=== PATIENT | female | born 1995 | race Caucasian/White ===

== ENCOUNTER 2018-07-02 08:00 | Outpatient (CLI) | payer OTHER ==
[2018-07-02 19:01] LABS: CALCIUM 9.2 mg/dL (8.5-10.3); CREATININE 0.6 mg/dL (0.4-1.0)
[2018-07-02 19:10] LABS: BASOPHILS % (AUTO) 0.3 %; EOSINOPHILS % (AUTO) 0.4 %; HGB - HEMOGLOBIN 13.7 g/dL (12.0-16.0); LYMPHOCYTES # (AUTO) 1.7 10^3/uL (1.5-3.5); LYMPHOCYTES % (AUTO) 20.6 %; MEAN CORPUSCULAR HEMOGLOBIN 31.8 pg (27.0-31.0); MEAN CORPUSCULAR HGB CONC 33.9 g/dL (32.0-36.0); MEAN CORPUSCULAR VOLUME 93.7 fL (81.0-99.0); MEAN PLATELET VOLUME 6.9 fL (7.9-10.8); MONOCYTES # (AUTO) 0.8 10^3/uL (0.0-1.0); NEUTROPHILS # (AUTO) 5.9 10^3/uL (1.5-6.6); NEUTROPHILS % (AUTO) 69.7 %; PLT - PLATELET COUNT 285 10^3/uL (130-450); RED BLOOD COUNT 4.32 10^6/uL (4.20-5.40); RED CELL DISTRIBUTION WIDTH 13.7 % (12.0-15.0); WHITE BLOOD COUNT 8.5 x10^3/uL (4.8-10.8)
[2018-07-02 19:22] LABS: THYROID STIMULATING HORMONE 1.22 uIU/mL (0.34-5.60)
[2018-07-02 19:29] LABS: PROLACTIN 8.39 ng/mL
== END 2018-07-02 08:01 | disposition home or self-care (01) ==
LOC: LAB.WCP 08:00
PROVIDERS: ATTEND Physician Assistant Medical
DX: N91.2 Amenorrhea, unspecified (principal); F32.9 Major depressive disorder, single episode, unspecified
CPT/HCPCS: 36415; 80048; 82306; 82607; 84146; 84443; 84702; 85025

== ENCOUNTER 2018-07-09 13:00 | Outpatient (CLI) | payer OTHER ==
--- NOTE | 2018-07-09 16:19 | Ultrasound Report ---
Reason: ENCOUNTER FOR TEST, RESULT POSITIVE Procedure Date: 07/09/2018 Accession Number: [id number] / [id number] Procedure: US - OB First Trimester CPT Code: FULL RESULT: EXAM: FIRST TRIMESTER OBSTETRIC ULTRASOUND (Less than 11 weeks) EXAM DATE: 07/09/2018 01:54 PM. CLINICAL HISTORY: Encounter for test, result positive. LMP: Unknown. COMPARISONS: None. TECHNIQUE: Transabdominal and transvaginal ultrasound examination with static image documentation. CLINICAL DATES: Not yet established and the patient is unsure of her last menstrual period. ASSESSMENT: Gestational Sac: 0.8 x 0.3 x 11 mm. Mean gestational sac diameter: 7.3 mm = under 5 weeks. Embryo: CRL (crown-rump length) not seen. Cardiac activity: Not seen. Yolk sac: Not seen. Amniotic fluid: Not accurately assessed at this gestational age. Early placenta: Not visible at this gestational age. Other: No perigestational fluid collection demonstrated. MATERNAL STRUCTURES: Uterus: Anteverted. Unremarkable. Cervix: Closed. Right Ovary/Adnexa: The ovary measures 2.2 x 1.3 x 1.4 cm, volume 2.1 cc. Unremarkable. Left Ovary/Adnexa: The ovary measures 3.4 x 3.0 x 2.4 cm, volume 12.7 cc. Unremarkable. Free Fluid: None. Other: None. IMPRESSION: of unknown location. Intrauterine fluid collection, which could represent a gestational sac, cyst, or focal fluid. If this is a gestational sac, size would correspond to a gestational age of under 5 weeks. Recommend close clinical follow-up and correlation with serial beta-hCG and follow-up ultrasound if indicated. RADIA
== END 2018-07-09 13:01 | disposition home or self-care (01) ==
LOC: DI 13:00
PROVIDERS: ATTEND Registered Nurse
DX: Z32.01 Encounter for pregnancy test, result positive (principal)
CPT/HCPCS: 76801; 76817

== ENCOUNTER 2018-09-27 17:54 | Inpatient (IN) | payer OTHER, BC ==
--- NOTE | 2018-09-27 18:20 | ED Physician Documentation ---
History of Present Illness - Stated complaint Stated Complaint: AB PX - Chief complaint Chief Complaint: Abd Pain - History obtained from History obtained from: Patient - History of Present Illness Timing: Today Pain level max: 8 Pain level now: 7 Improved by: nothing Worsened by: eating - Additonal information Additional information: 23-year-old female with abdominal pain and vomiting since yesterday. No vomiting today. Has continued epigastric and right upper quadrant abdominal pain. No fevers. No diarrhea. No possibility of . Drinks a few glasses of wine every other day. Does not take any medications at home. No allergies to medication. Patient has had prior alcohol withdrawal seizures, last was approximately 1.5 years ago Review of Systems Ten Systems: 10 systems reviewed and negative Constitutional: denies: Fever, Chills Ears: denies: Ear pain Nose: denies: Rhinorrhea / runny nose, Congestion Respiratory: denies: Cough GI: reports: Abdominal Pain, Nausea, Vomiting. 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 : None HEENT: None Psych: None Musculoskeletal: None Derm: None - Present Medications Home Medications: Ambulatory Orders Medication Instructions Recorded Confirmed Acetaminophen [Tylenol] 09/27/18 diphenhydrAMINE [Benadryl] 09/27/18 - Allergies Allergies/Adverse Reactions: Allergies Allergy/AdvReac Type Severity Reaction Status Date / Time No Known Drug Allergies Allergy Verified 09/27/18 18:02 - Social History Does the pt smoke?: Yes Smoking Status: Current every day smoker Does the pt drink ETOH?: Yes Does the pt have substance abuse?: No - Immunizations Immunizations are current?: Yes PD ED PE NORMAL - Vitals Vital signs reviewed: Yes - General General: Alert and oriented X 3, No acute distress - HEENT HEENT: Moist mucous membranes - Neck Neck: Supple, no meningeal sign - Cardiac Cardiac: RRR - Respiratory Respiratory: No respiratory distress, Clear bilaterally - Abdomen Abdomen: Soft, Non distended, Other (TTP RUQ and epigastric. equivocal suarez's sign) - Back Back: No spinal TTP - Derm Derm: Warm and dry - Extremities Extremities: No edema - Neuro Neuro: Alert and oriented X 3 Results - Vitals Vitals: Vital Signs - 24 hr 09/27/18 09/27/18 17:56 19:52 Temperature 36.0 C L Heart Rate 75 99 Respiratory 16 16 Rate Blood Pressure 116/60 144/112 H O2 Saturation 99 100 Oxygen O2 Source Room air - Labs Labs: Laboratory Tests 09/27/18 09/27/18 09/27/18 18:14 18:14 18:15 WBC 14.5 H RBC 5.74 H Hgb 18.5 H Hct 55.4 H MCV 96.4 MCH 32.2 H MCHC 33.4 RDW 19.1 H Plt Count 122 L MPV 9.5 Neut # (Auto) HEAD OF MUSIC Lymph # (Auto) HEAD OF MUSIC Greene # (Auto) HEAD OF MUSIC Eos # (Auto) HEAD OF MUSIC Baso # (Auto) HEAD OF MUSIC Absolute Nucleated RBC HEAD OF MUSIC Total Counted 100 Band Neuts % (Manual) 7 Abnorm Lymph % (Manual) 0 Nucleated RBC % HEAD OF MUSIC Neutrophils # (Manual) 12.3 H Lymphocytes # (Manual) 1.3 L Monocytes # (Manual) 0.9 Eosinophils # (Manual) 0.0 Basophils # (Manual) 0.0 Differential Comment MANUAL DIFFERENTIAL Manual Slide Review Indicated Platelet Estimate DECREASED (<130,000) Platelet Morphology NORMAL VERENICE RBC Morph Micro Appear 1+ STOMATOCYTES PT 12.7 H INR 1.1 APTT Sodium 126 L Potassium 3.3 L Chloride 81 L Carbon Dioxide 24 Anion Gap 21.0 H BUN 32 H Creatinine 3.8 H Estimated GFR (MDRD) 14 L Glucose 206 H Calcium 7.8 L Total Bilirubin 1.4 H AST 185 H ALT 105 H Alkaline Phosphatase 93 Total Protein 7.7 Albumin 4.1 Globulin 3.6 Albumin/Globulin Ratio 1.1 Lipase 792 H Ethyl Alcohol 09/27/18 09/27/18 18:15 18:15 WBC RBC Hgb Hct MCV MCH MCHC RDW Plt Count MPV Neut # (Auto) Lymph # (Auto) Greene # (Auto) Eos # (Auto) Baso # (Auto) Absolute Nucleated RBC Total Counted Band Neuts % (Manual) Abnorm Lymph % (Manual) Nucleated RBC % Neutrophils # (Manual) Lymphocytes # (Manual) Monocytes # (Manual) Eosinophils # (Manual) Basophils # (Manual) Differential Comment Manual Slide Review Platelet Estimate Platelet Morphology RBC Morph Micro Appear PT INR APTT 26.6 Sodium Potassium Chloride Carbon Dioxide Anion Gap BUN Creatinine Estimated GFR (MDRD) Glucose Calcium Total Bilirubin AST ALT Alkaline Phosphatase Total Protein Albumin Globulin Albumin/Globulin Ratio Lipase Ethyl Alcohol < 5.0 - Rads (name of study) RUQ US Radiology: Prelim report reviewed, EMP read contemporaneously, See rad report (No acute abnormality) PD MEDICAL DECISION MAKING - ED course Complexity details: reviewed results, re-evaluated patient, considered differential, d/w patient, d/w family ED course: 23-year-old female with acute pancreatitis, acute renal failure and thrombocytopenia. Likely all secondary to alcohol use. Given IV fluids. Given pain medication. Will admit for further care. Ultrasound does not show any acute abnormalities. Discussed the case with the hospitalist who accepts. This document was made in part using voice recognition software. While efforts are made to proofread this document, sound alike and grammatical errors may occur. Departure - Departure Disposition: 66 CAH DC/Xfer Clinical Impression: Thrombocytopenia, Alcoholism Pancreatitis Qualifiers: Chronicity: acute Pancreatitis type: unspecified pancreatitis type Acute pancreatitis complication: unspecified Qualified Code(s): K85.90 - Acute pancreatitis without necrosis or infection, unspecified Acute renal failure Qualifiers: Acute renal failure type: unspecified Qualified Code(s): N17.9 - Acute kidney failure, unspecified Condition: Stable
[2018-09-27 18:30] LABS: HGB - HEMOGLOBIN 18.5 g/dL (12.0-16.0); MEAN CORPUSCULAR HEMOGLOBIN 32.2 pg (27.0-31.0); PLT - PLATELET COUNT 122 10^3/uL (130-450); RED BLOOD COUNT 5.74 10^6/uL (4.20-5.40); WHITE BLOOD COUNT 14.5 x10^3/uL (4.8-10.8)
[2018-09-27 18:33] LABS: BASOPHILS % (AUTO) 0.2 %; EOSINOPHILS % (AUTO) 0.1 %; LYMPHOCYTES % (AUTO) 11.9 %; MEAN CORPUSCULAR HGB CONC 33.4 g/dL (32.0-36.0); MEAN CORPUSCULAR VOLUME 96.4 fL (81.0-99.0); MEAN PLATELET VOLUME 9.5 fL (7.9-10.8); MONOCYTES % (AUTO) 5.8 %; RED CELL DISTRIBUTION WIDTH 19.1 % (12.0-15.0)
[2018-09-27 18:35] LABS: ABNORMAL LYMPHS % (MANUAL) 0 %
[2018-09-27 18:53] LABS: ALBUMIN 4.1 g/dL (3.2-5.5); ALBUMIN/GLOBULIN RATIO 1.1 (1.0-2.2); BILIRUBIN,TOTAL 1.4 mg/dL (0.2-1.0); CALCIUM 7.8 mg/dL (8.5-10.3); CREATININE 3.8 mg/dL (0.4-1.0); TOTAL PROTEIN 7.7 g/dL (6.7-8.2)
[2018-09-27] MEDS ORDERED: SODIUM CHLORIDE 0.9% 1,000 ML IV ONE ×3 (18:58)
[2018-09-27 19:07] LABS: BAND NEUTROPHILS % (MANUAL) 7 %; LYMPHOCYTES # (MANUAL) 1.3 10^3/uL (1.5-3.5); LYMPHOCYTES % (MANUAL) 9 %; MONOCYTES # (MANUAL) 0.9 10^3/uL (0.0-1.0); NEUTROPHILS # (MANUAL) 12.3 10^3/uL (1.5-6.6); NEUTROPHILS % (MANUAL) 78 %
[2018-09-27 19:08] LABS: INR 1.1 (0.8-1.2); PT - PROTHROMBIN TIME 12.7 secs (9.9-12.6)
[2018-09-27 19:12] LABS: DIFFERENTIAL COMMENT MANUAL DIFFERENTIAL; PLATELET ESTIMATE, MANUAL DECREASED (<130,000) (NORMAL)
[2018-09-27 19:13] LABS: PLATELET MORPHOLOGY NORMAL APP (NORMAL)
[2018-09-27] MEDS ORDERED: HYDROmorphone 1 MG/ML CARPUJECT IVP STA (19:54)
--- NOTE | 2018-09-27 20:35 | Ultrasound Report ---
Reason: RUQ pain Procedure Date: 09/27/2018 Accession Number: [id number] / [id number] Procedure: US - Abdomen Limited CPT Code: FULL RESULT: EXAM: ABDOMEN ULTRASOUND LIMITED, RUQ EXAM DATE: 09/27/2018 08:22 PM. CLINICAL HISTORY: RUQ pain. COMPARISON: None. TECHNIQUE: Real-time scanning was performed with static images obtained. FINDINGS: Liver: Submitted images of liver demonstrate no focal lesions. Main portal vein flow: Hepatopetal. Gallbladder: No stones, wall thickening, or sonographic Lees's sign. Biliary System: CBD measures 4 mm. No intrahepatic or extrahepatic ductal dilatation. Other: The pancreas is not well seen. Right kidney demonstrates no hydronephrosis. IMPRESSION: Negative right upper quadrant ultrasound. RADIA
--- NOTE | 2018-09-27 21:23 | HISTORY & PHYSICAL EXAMINATION ---
Chief Complaint - Chief Complaint Chief Complaint: Abdominal pain History of Present Illness - Admitted From Admitted From:: Emergency department - History Obtained From Records Reviewed: Emergency department records, and previous hospital visits History obtained from: Patient and Dr. Calderon, ED physician Exam Limitations: None - History of Present Illness HPI Comment/Other: Patient is a healthy 23-year-old female who complains of abdominal pain which developed yesterday and progressively has gotten worse. She describes the pain as located in the epigastric region or central abdomen, which is relatively constant, not crampy and currently described as sharp. Pain is worsened with any p.o. intake which has now dwindled to clear liquids only, in particular water today. Otherwise she has not eaten much in the last couple of days Has not had a bowel movement in 2 days. She denies any fever or chills, she had one episode of emesis. She has not had prior episodes of abdominal pain like this before. Upon social history she does admit to drinking several glasses of wine per day and has done so for several months or years. She opens up a little bit and admits that this is being utilized as a self-medicating for depression. She has been officially diagnosed with depression in the past and was prescribed what she believes to be Prozac sometime ago and thinks that she did not tolerate it, and she does currently have sertraline at home but is not really taking it. In the emergency room evaluation led to labs and abdominal CT scan. Labs are pertinent for elevated lipase over 700, AST and ALT over 100, sodium level of 126, and other abnormality findings as below consistent with acute pancreatitis. There is no visible gallstone pancreatitis, no CBD dilation. Patient will be placed in inpatient status for treatment of acute alcoholic pancreatitis and will have a social work consult tomorrow to help assist her with resources on alcohol cessation and encouragement on better treatment of her depression. 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 She lives with her parents. She is currently in a relationship but is not and does not have children. - Substance History Abuse: Recurrent use of substance despite neg consequences: Alcohol Abuse Issues: Mood Disorder - POLST Patient has POLST: No POLST Status: Full Code Meds/Allgy - Home Medications Home Medications: Ambulatory Orders Medication Instructions Recorded Confirmed Acetaminophen [Tylenol] 09/27/18 diphenhydrAMINE [Benadryl] 09/27/18 - Allergies Allergies/Adverse Reactions: Allergies Allergy/AdvReac Type Severity Reaction Status Date / Time No Known Drug Allergies Allergy Verified 09/27/18 18:02 Review of Systems - Constitutional Constitutional: reports: Fatigue, Malaise, Poor appetite. denies: Fever, Chills, Night sweats - Respiratory Respiratory: reports: Other (SOB with abdominal cramps and deep breaths) - Gastrointestinal Gastrointestinal: reports: Abdominal pain, Abdominal distention, Nausea, Vomiting. denies: Constipation, Diarrhea, Change in bowel habits, Rectal bleeding, Black stools, Bloody stools, Bile emesis, Tank blood emesis, Coffee grounds emesis - Psychiatric Psychiatric: reports: Depression. denies: Anxiety, Suicidal - All Other Systems All Other Systems: reports: Reviewed and negative Prior Level of Functionality: Independent Exam - Vital Signs Vital Signs: Vital Signs x48h Temp Pulse Resp BP Pulse Ox 09/27/18 20:56 80 16 131/108 H 99 09/27/18 19:52 99 16 144/112 H 100 09/27/18 17:56 36.0 C L 75 16 116/60 99 - Physical Exam General Appearance: positive: No acute distress Eyes Bilateral: positive: Normal inspection, Conjunctivae nml, No scleral icterus ENT: positive: ENT inspection nml Neck: positive: Nml inspection Respiratory: positive: Chest non-tender, No respiratory distress, Breath sounds nml Cardiovascular: positive: Regular rate & rhythm, No murmur, No gallop Peripheral Pulses: positive: 2+ Abdomen: positive: No organomegaly, Nml bowel sounds, No distention, Tenderness, Other (Minimal tenderness of the epigastric region and left upper quadrant). negative: Guarding, Rebound Skin: positive: Color nml Extremities: positive: Non-tender, No pedal edema Neurologic/Psychiatric: positive: Oriented x3, CN's nml (2-12), Motor nml, Sensation nml, Depressed mood/affect Conclusion/Plan - Problem List (1) Acute alcoholic pancreatitis Conclusion/Plan: Based on labs, symptoms, and imaging, most likely diagnosis explaining her pain and laboratory findings is acute alcoholic pancreatitis given the alcohol consumption that she admits to which is half a bottle of wine every day or so. Patient will be admitted with n.p.o. other than sips and chips, with IV fluid hydration aggressively, serial abdominal exam and follow-up labs in the morning and will slowly advance diet as symptoms and labs allow. Qualifiers: Acute pancreatitis complication: no infection or necrosis Qualified Code(s): K85.20 - Alcohol induced acute pancreatitis without necrosis or infection (2) Acute kidney injury Conclusion/Plan: Creatinine level of 3.8 in a patient with no known history of kidney disease who is otherwise young and healthy, with most likely secondary to intravascular depletion secondary to alcoholic pancreatitis. With aggressive IV fluid hydration would expect this to improve and will continue to monitor creatinine levels over the next day or 2 and this is unlikely to resolve within 24 hours.Pending rate of improvement, may need to consider dedicated renal imaging unless lab values Improved. (3) Hypokalemia Conclusion/Plan: Mild hypokalemia of 3.3, possibly due to tissue destruction from the acute pancreatitis versus GI loss. Will replace potassium and repeat labs in the morning. (4) Hyponatremia Conclusion/Plan: Most likely hypovolemic hyponatremia, will replace with normal saline and follow-up labs in the morning. (5) Elevated liver enzymes Conclusion/Plan: LFTs are moderately elevated with an AST greater than ALT suggestive of alcoholic etiology. In the setting of platelet level of 122, and hemoconcentration, this is also likely related to alcohol as well. Patient will need to monitor LFTs in the outpatient to see if this is limited to an acute alcoholic hepatitis.Though I think we have a source for this I will add a hepatitis panel to her morning labs. (6) Leukocytosis Conclusion/Plan: Likely reactive secondary to alcoholic pancreatitis, will follow-up repeat labs in the morning. (7) Elevated hemoglobin Conclusion/Plan: Most likely due to hemoconcentration from dehydration due to intravascular volume loss. However given the elevated LFTs, the patient's race and ethnicity, hemochromatosis may be considered and we will check for this on labs in the morning. (8) Alcohol abuse Conclusion/Plan: Counseled on the underlying problem leading to the alcoholism which appears to be depression. We will get a social work consult tomorrow and provide the pat ient with options for counseling and rehabilitation. - Lab Results Lab results reviewed: Yes Fish Bones: 09/27/18 18:14 09/27/18 18:14 - Diagnostic Imaging Results Diagnostic Imaging Results: positive: Final report reviewed - EKG Results EKG Interpreted Independently: No
[2018-09-27] MEDS ORDERED: PROCHLORPERAZINE 10 MG/2 ML VIAL IVP PRN (21:46)
[2018-09-27] MEDS ORDERED: POTASSIUM CHLOR 20 MEQ/100 ML 20 MEQ/100 ML BAG IV SCH (22:00)
[2018-09-27 22:11] LABS: BILIRUBIN,URINE NEGATIVE (NEGATIVE); GLUCOSE, URINE (UA) 100 mg/dL (NEGATIVE); KETONES,URINE (UA) NEGATIVE (NEGATIVE); LEUKOCYTE ESTERASE, URINE NEGATIVE (NEGATIVE); NITRITE,URINE NEGATIVE (NEGATIVE); OCCULT BLOOD,URINE LARGE (NEGATIVE); PH,URINE 5.5 PH (5.0-7.5); PROTEIN,URINE 100 mg/dL (NEGATIVE); UROBILINOGEN,URINE 0.2 (NORMAL) E.U./dL (NORMAL)
[2018-09-27 22:15] LABS: CLARITY,URINE HAZY (CLEAR); HCG UR QUAL NEGATIVE
[2018-09-27 22:25] LABS: BACTERIA,URINE Few /HPF (None Seen); SQUAMOUS EPITHELIAL CELL,UR MOD Squamous (<= Few)
[2018-09-27] MEDS: SODIUM CHLORIDE 0.9% 1,000 ML IV SCH (22:25)
[2018-09-27] MEDS ORDERED: POTASSIUM CHLOR 10 MEQ/100 ML 10 MEQ/100 ML BAG IV ONE ×2 (22:25→23:25)
[2018-09-27 22:26] LABS: AMORPHOUS SEDIMENT,UR Moderate /LPF
[2018-09-27] MEDS: HYDROmorphone 0.5 MG/0.5 ML SYRINGE IVP PRN (22:57)
[2018-09-28] MEDS: ONDANSETRON 4 MG/2 ML VIAL IVP PRN (00:20)
[2018-09-28] MEDS: SODIUM CHLORIDE FLUSH 0.9% 10 ML SYRINGE IVP SCH ×3 (00:21→16:10)
[2018-09-28] MEDS: HYDROmorphone 0.5 MG/0.5 ML SYRINGE IVP PRN ×2 (02:25→06:16)
[2018-09-28] MEDS: SODIUM CHLORIDE 0.9% 1,000 ML IV SCH ×5 (03:07→23:53)
[2018-09-28 06:42] LABS: HGB - HEMOGLOBIN 13.9 g/dL (12.0-16.0); MEAN CORPUSCULAR HEMOGLOBIN 33.1 pg (27.0-31.0); MEAN CORPUSCULAR HGB CONC 33.8 g/dL (32.0-36.0); MEAN CORPUSCULAR VOLUME 97.9 fL (81.0-99.0); MEAN PLATELET VOLUME 8.9 fL (7.9-10.8); RED BLOOD COUNT 4.19 10^6/uL (4.20-5.40); WHITE BLOOD COUNT 8.6 x10^3/uL (4.8-10.8)
[2018-09-28 07:00] LABS: ALBUMIN 3.1 g/dL (3.2-5.5); ALBUMIN/GLOBULIN RATIO 1.2 (1.0-2.2); BILIRUBIN,TOTAL 1.2 mg/dL (0.2-1.0); CREATININE 2.2 mg/dL (0.4-1.0); TOTAL PROTEIN 5.7 g/dL (6.7-8.2)
[2018-09-28 07:01] LABS: CALCIUM 6.4 mg/dL (8.5-10.3)
[2018-09-28] MEDS: LORazepam 2 MG/ML VIAL IVP PRN ×3 (07:50→22:47)
[2018-09-28] MEDS ORDERED: CALCIUM GLUCONATE 2,000 MG in SODIUM CHLORIDE 0.9% 100ML 100 ML IV ONE (08:23)
[2018-09-28 08:51] LABS: CHOL/HDL RATIO 5.4 (<4.4); CHOLESTEROL 97 mg/dL; HDL CHOLESTEROL 18 mg/dL; LDL CHOLESTEROL,CALCULATED 34 mg/dL; LDL/HDL RATIO 1.9 (<4.4); VLDL CHOLESTEROL 45 mg/dL
[2018-09-28] MEDS: HYDROmorphone 1 MG/ML CARPUJECT IVP PRN ×4 (09:24→18:26)
[2018-09-28] MEDS: POLYETHYLENE GLYCOL 3350 17 GM PACKET PO SCH (11:09)
[2018-09-28] MEDS: SERTRALINE 25 MG TABLET PO SCH (12:22)
--- NOTE | 2018-09-28 13:38 | PROVIDER PROGRESS NOTE ---
Assessment/Plan - Problem List (1) Acute alcoholic pancreatitis Qualifiers: Acute pancreatitis complication: no infection or necrosis Qualified Code(s): K85.20 - Alcohol induced acute pancreatitis without necrosis or infection Assessment/Plan: Patient admits to heavy drinking to cope with depression. She states that she drinks a box of wine every 2-3 days. She has had alcohol withdrawal seizures in the past so it is likely that she drinks more than what she claims. The patient's lipid profile shows normal triglycerides, abdominal ultrasound does not show any evidence of gallstones. The patient has had no recent viral syndrome. The patient is not on any medications that could cause pancreatitis. This is very likely to be alcoholic pancreatitis. Lipase improved from 792-339 overnight Plan: Continue IV fluids Continue n.p.o. Pain control Electrolyte replacement Monitor closely if patient has worsening symptoms consider CT of the abdomen and pelvis. (2) Acute kidney injury Conclusion/Plan: Likely secondary to pancreatitis and significant fluid loss. The patient's creatinine on presentation was 3.8 with an elevated BUN. This appears to be a prerenal azotemia. After receiving IV fluids overnight patient's creatinine is improved from 3.8- 2.2 Plan: Continue IV fluids Avoid nephrotoxic agents Monitor creatinine (3) Hypokalemia Conclusion/Plan: Resolved with potassium replacement Monitor potassium (4) Hyponatremia Conclusion/Plan: Likely hypovolemic hyponatremia which is improving with IV fluids as sodium is up to 129 from 126 Continue IV fluids and monitor sodium. (5) Elevated liver enzymes Conclusion/Plan: Likely secondary to alcoholic hepatitis. AST and ALT both improving. Bilirubin also improving. Hepatitis panel pending (6) Leukocytosis Conclusion/Plan: Likely reactive secondary to alcoholic pancreatitis. Resolved with treatment (7) Hyperglycemia Conclusion/Plan: Patient's blood glucose is elevated on presentation at 206. This is likely secondary to acute pancreatitis. The patient's blood glucose will be monitored and will check a hemoglobin A1c. Today blood glucose is down to 137 (8) Alcohol abuse Conclusion/Plan: Patient counseled Social work consulted [facility] protocol Ativan as needed (9) Hypocalcemia Conclusion/Plan: Likely secondary to poor nutrition and alcohol abuse. Replace calcium Monitor calcium - Current Meds Current Meds: Current Medications Generic Name Dose Route Start Last Admin Trade Name Freq PRN Reason Stop Dose Admin Hydromorphone HCl 1 mg 09/28/18 07:28 09/28/18 12:27 Dilaudid Inj Carp IVP 1 mg Q2H PRN Administration Pain 8 to 10 Sodium Chloride 1,000 mls @ 200 mls/hr 09/27/18 22:00 09/28/18 13:13 Normal Saline 0.9% IV 200 mls/hr .Q5H EDISON Administration Lorazepam 1 mg 09/27/18 21:54 09/28/18 07:50 Ativan Inj (Vial) IVP 1 mg Q2H PRN Administration Alcohol Withdrawal Ondansetron HCl 4 mg 09/27/18 21:46 09/28/18 00:20 Zofran Inj IVP 4 mg Q6HR PRN Administration Nausea / Vomiting Polyethylene Glycol 17 gm 09/28/18 09:00 09/28/18 11:09 Miralax PO Not Given DAILY EDISON Sertraline HCl 25 mg 09/28/18 12:00 09/28/18 12:22 Zoloft PO 25 mg DAILY EDISON Administration Sodium Chloride 10 ml 09/28/18 01:00 09/28/18 09:17 Normal Saline Flush 0.9% IVP Not Given 0100,0900,1700 EDISON - Lab Result Lab results reviewed: Yes Fish Bone Diagrams: 09/28/18 05:50 09/28/18 05:50 - Diagnostic Imaging Results Diagnostic Imaging Results: Final report reviewed - Additional Planning Condition/Complexity: Guarded My Orders: My Active Orders 09/28/18 11:50 CIWA - AR Score Card [RC] Routine Routine Social Work Consult [CONS] Routine 09/28/18 12:00 Sertraline [Zoloft] 25 mg PO DAILY Plan Discussed with:: Patient, Family Time Spent: 31-60 minutes Subjective - Subjective Patient Reports: Abdominal Pain (Better with pain medications), Nausea (Improved), Other (She is drowsy this morning secondary to ativan) Nursing Reports: No Complaints Objective Vital Signs: Vital Signs - 24 hr 09/27/18 09/27/18 09/27/18 17:56 19:52 20:56 Temperature 36.0 C L Heart Rate 75 99 80 Heart Rate [ Brachial] Respiratory 16 16 16 Rate Blood Pressure 116/60 144/112 H 131/108 H Blood Pressure [Right Brachial artery] O2 Saturation 99 100 99 09/27/18 09/27/18 09/28/18 21:51 22:28 07:24 Temperature 37.5 C 36.3 C L Heart Rate 96 Heart Rate [ 106 H 114 H Brachial] Respiratory 16 20 16 Rate Blood Pressure 107/75 Blood Pressure 124/106 H 130/86 H [Right Brachial artery] O2 Saturation 100 97 94 Oxygen O2 Source Room air I&O (Last 24 Hrs): Intake and Output Totals x24h 09/26/18 09/27/18 09/28/18 23:59 23:59 23:59 Intake Total 2049 3089 Output Total Balance 2049 308 General: Moderate distress (Abdominal discomfort), Other (Drowsy, in pain) HEENT: Atraumatic, PERRLA, EOMI, Other (Dry mucus membranes) Neck: Supple, No JVD, No thyromegaly, +2 carotid pulse wo bruit, No LAD Lymphatic: no adenopathy Neuro: Alert, Non Focal, CN 2-12 Grossly Intact, Oriented Times 3 Cardiovascular: No murmurs, Other (Tachycardic) Respiratory: Chest non-tender, No respiratory distress, Breath sounds nml Abdomen: Other (Epigastric tenderness) Extremities: No clubbing, No cyanosis, No edema, Normal pulses, No tenderness/s welling Skin: No rashes, No breakdown - Results Results: Laboratory Results WBC 8.6 x10^3/uL (4.8-10.8) 09/28/18 05:50 RBC 4.19 10^6/uL (4.20-5.40) L 09/28/18 05:50 Hgb 13.9 g/dL (12.0-16.0) 09/28/18 05:50 Hct 41.0 % (37.0-47.0) 09/28/18 05:50 MCV 97.9 fL (81.0-99.0) 09/28/18 05:50 MCH 33.1 pg (27.0-31.0) H 09/28/18 05:50 MCHC 33.8 g/dL (32.0-36.0) 09/28/18 05:50 RDW 19.0 % (12.0-15.0) H 09/28/18 05:50 Plt Count 82 10^3/uL (130-450) L 09/28/18 05:50 MPV 8.9 fL (7.9-10.8) 09/28/18 05:50 Neut # (Auto) LUMBER DRIVER 09/27/18 18:14 Lymph # (Auto) LUMBER DRIVER 09/27/18 18:14 [place] # (Auto) LUMBER DRIVER 09/27/18 18:14 Eos # (Auto) LUMBER DRIVER 09/27/18 18:14 Baso # (Auto) LUMBER DRIVER 09/27/18 18:14 Absolute Nucleated RBC LUMBER DRIVER 09/27/18 18:14 Total Counted 100 09/27/18 18:14 Band Neuts % (Manual) 7 % (0-10) 09/27/18 18:14 Abnorm Lymph % (Manual) 0 % 09/27/18 18:14 Nucleated RBC % LUMBER DRIVER 09/27/18 18:14 Neutrophils # (Manual) 12.3 10^3/uL (1.5-6.6) H 09/27/18 18:14 Lymphocytes # (Manual) 1.3 10^3/uL (1.5-3.5) L 09/27/18 18:14 Monocytes # (Manual) 0.9 10^3/uL (0.0-1.0) 09/27/18 18:14 Eosinophils # (Manual) 0.0 10^3/uL (0-0.7) 09/27/18 18:14 Basophils # (Manual) 0.0 10^3/uL (0-0.1) 09/27/18 18:14 Differential Comment MANUAL DIFFERENTIAL 09/27/18 18:14 Manual Slide Review Indicated 09/27/18 18:14 Platelet Estimate DECREASED (<130,000) (NORMAL) 09/27/18 18:14 Platelet Morphology NORMAL VERENICE (NORMAL) 09/27/18 18:14 RBC Morph Micro Appear 1+ ANISOCYTOSIS (NORMAL) 1+ STOMATOCYTES (NORMAL) 09/27/18 18:14 RBC Morph Micro Appear 1+ ANISOCYTOSIS (NORMAL) 1+ STOMATOCYTES (NORMAL) 09/27/18 18:14 PT 12.7 secs (9.9-12.6) H 09/27/18 18:15 INR 1.1 (0.8-1.2) 09/27/18 18:15 APTT 26.6 secs (24.9-33.3) 09/27/18 18:15 Sodium 129 mmol/L (135-145) L 09/28/18 05:50 Potassium 3.7 mmol/L (3.5-5.0) 09/28/18 05:50 Chloride 97 mmol/L (101-111) L 09/28/18 05:50 Carbon Dioxide 20 mmol/L (21-32) L 09/28/18 05:50 Anion Gap 12.0 (6-13) 09/28/18 05:50 BUN 28 mg/dL (6-20) H 09/28/18 05:50 Creatinine 2.2 mg/dL (0.4-1.0) H 09/28/18 05:50 Estimated GFR (MDRD) 27 (>89) L 09/28/18 05:50 Glucose 137 mg/dL (70-100) H 09/28/18 05:50 Calcium 6.4 mg/dL (8.5-10.3) L* 09/28/18 05:50 Total Bilirubin 1.2 mg/dL (0.2-1.0) H 09/28/18 05:50 AST 112 IU/L (10-42) H 09/28/18 05:50 ALT 67 IU/L (10-60) H 09/28/18 05:50 Alkaline Phosphatase 66 IU/L (42-121) 09/28/18 05:50 Total Protein 5.7 g/dL (6.7-8.2) L 09/28/18 05:50 Albumin 3.1 g/dL (3.2-5.5) L 09/28/18 05:50 Globulin 2.6 g/dL (2.1-4.2) 09/28/18 05:50 Albumin/Globulin Ratio 1.2 (1.0-2.2) 09/28/18 05:50 Triglycerides 223 mg/dL (-149) H 09/28/18 05:50 Cholesterol 97 mg/dL (-199) 09/28/18 05:50 LDL Cholesterol, Calc 34 mg/dL (-129) 09/28/18 05:50 VLDL Cholesterol 45 mg/dL 09/28/18 05:50 HDL Cholesterol 18 mg/dL (60-) L 09/28/18 05:50 LDL/HDL Ratio 1.9 (<4.4) 09/28/18 05:50 Cholesterol/HDL Ratio 5.4 (<4.4) 09/28/18 05:50 Lipase 339 U/L (22-51) H 09/28/18 05:50 Urine Color YELLOW 09/27/18 22:03 Urine Clarity HAZY (CLEAR) 09/27/18 22:03 Urine pH 5.5 PH (5.0-7.5) 09/27/18 22:03 Ur Specific [place] 1.025 (1.002-1.030) 09/27/18 22:03 Urine Protein 100 mg/dL (NEGATIVE) H 09/27/18 22:03 Urine Glucose (UA) 100 mg/dL (NEGATIVE) H 09/27/18 22:03 Urine Ketones NEGATIVE mg/dL (NEGATIVE) 09/27/18 22:03 Urine Occult Blood LARGE (NEGATIVE) H 09/27/18 22:03 Urine Nitrite NEGATIVE (NEGATIVE) 09/27/18 22:03 Urine Bilirubin NEGATIVE (NEGATIVE) 09/27/18 22:03 Urine Urobilinogen 0.2 (NORMAL) E.U./dL (NORMAL) 09/27/18 22:03 Ur Leukocyte Esterase NEGATIVE (NEGATIVE) 09/27/18 22:03 Urine RBC 6-10 /HPF (0-5) H 09/27/18 22:03 Urine WBC 11-25 /HPF (0-5) H 09/27/18 22:03 Ur Squamous Epith Cells MOD Squamous (<= Few) H 09/27/18 22:03 Amorphous Sediment Moderate /LPF 09/27/18 22:03 Urine Bacteria Few /HPF (None Seen) 09/27/18 22:03 Urine Casts 11-25 Granular Casts /LPF 09/27/18 22:03 Ur Microscopic Review INDICATED 09/27/18 22:03 Urine Culture Comments NOT INDICATED 09/27/18 22:03 Urine HCG, Qual NEGATIVE 09/27/18 22:03 Ethyl Alcohol < 5.0 mg/dL 09/27/18 18:15 ABX Reporting Has patient been on IV antibiotics over the past 48 hours?: No Current Medications - Current Medications Current Medications: Active Medications Generic Name Dose Route Start Last Admin Trade Name Freq PRN Reason Stop Dose Admin Hydromorphone HCl 1 mg 09/28/18 07:28 09/28/18 12:27 Dilaudid Inj Carp IVP 1 mg Q2H PRN Administration Pain 8 to 10 Sodium Chloride 1,000 mls @ 200 mls/hr 09/27/18 22:00 09/28/18 13:13 Normal Saline 0.9% IV 200 mls/hr .Q5H EDISON Administration Lorazepam 1 mg 09/27/18 21:54 09/28/18 07:50 Ativan Inj (Vial) IVP 1 mg Q2H PRN Administration Alcohol Withdrawal Ondansetron HCl 4 mg 09/27/18 21:46 09/28/18 00:20 Zofran Inj IVP 4 mg Q6HR PRN Administration Nausea / Vomiting Polyethylene Glycol 17 gm 09/28/18 09:00 09/28/18 11:09 Miralax PO Not Given DAILY EDISON Prochlorperazine Edisylate 10 mg 09/27/18 21:46 Compazine Inj IVP Q6HR PRN Nausea / Vomiting Sertraline HCl 25 mg 09/28/18 12:00 09/28/18 12:22 Zoloft PO 25 mg DAILY EDISON Administration Sodium Chloride 10 ml 09/27/18 21:46 Normal Saline Flush 0.9% IVP PRN PRN NEEDED PER PROVIDER ORDERS Sodium Chloride 10 ml 09/28/18 01:00 09/28/18 09:17 Normal Saline Flush 0.9% IVP Not Given 0100,0900,1700 EDISON Zolpidem Tartrate 5 mg 09/27/18 21:46 Ambien PO QPM PRN Insomnia No Known Home Medications 09/28/18
[2018-09-28] MEDS: SODIUM CHLORIDE FLUSH 0.9% 10 ML SYRINGE IVP PRN (22:47)
[2018-09-28] MEDS ORDERED: LORazepam 2 MG/ML VIAL IVP PRN (23:06)
[2018-09-29] MEDS ORDERED: chlordiazePOXIDE 25 MG CAPSULE PO SCH
[2018-09-29] MEDS: SODIUM CHLORIDE FLUSH 0.9% 10 ML SYRINGE IVP SCH ×3 (00:44→17:45)
[2018-09-29] MEDS: ZOLPIDEM 5 MG TABLET PO PRN (01:54)
[2018-09-29] MEDS ORDERED: LORazepam 2 MG/ML VIAL IVP SCH (05:00)
[2018-09-29] MEDS: SODIUM CHLORIDE 0.9% 1,000 ML IV SCH ×3 (05:26→23:40)
[2018-09-29] MEDS: LORazepam 2 MG/ML VIAL IVP PRN ×4 (05:26→09:31)
[2018-09-29] MEDS: chlordiazePOXIDE 25 MG CAPSULE PO SCH ×4 (06:00→23:40)
[2018-09-29 06:27] LABS: MEAN CORPUSCULAR HEMOGLOBIN 33.2 pg (27.0-31.0); MEAN CORPUSCULAR HGB CONC 34.1 g/dL (32.0-36.0); MEAN CORPUSCULAR VOLUME 97.5 fL (81.0-99.0); MEAN PLATELET VOLUME 7.6 fL (7.9-10.8); RED BLOOD COUNT 3.31 10^6/uL (4.20-5.40); RED CELL DISTRIBUTION WIDTH 19.2 % (12.0-15.0); WHITE BLOOD COUNT 4.9 x10^3/uL (4.8-10.8)
[2018-09-29 06:37] LABS: ALBUMIN 2.6 g/dL (3.2-5.5); BILIRUBIN,TOTAL 1.2 mg/dL (0.2-1.0); CALCIUM 6.9 mg/dL (8.5-10.3); CREATININE 0.8 mg/dL (0.4-1.0); TOTAL PROTEIN 5.1 g/dL (6.7-8.2)
[2018-09-29 06:40] LABS: HB2 TOTAL 11.1 g/dL; HEMOGLOBIN A1C 0.34 g/dL
[2018-09-29] MEDS ORDERED: MAGNESIUM SULFATE 2 GRAM 2 GM/50 ML BAG IV ONE (07:37)
[2018-09-29] MEDS: SERTRALINE 25 MG TABLET PO SCH (08:44)
[2018-09-29] MEDS: POLYETHYLENE GLYCOL 3350 17 GM PACKET PO SCH (08:45)
[2018-09-29] MEDS ORDERED: MULTIVITAMIN 10 ML, THIAMINE INJ 100 MG, FOLIC ACID INJ 1 MG in SODIUM CHLORIDE 0.9% 1,... IV SCH (09:00)
--- NOTE | 2018-09-29 09:31 | PROVIDER PROGRESS NOTE ---
Assessment/Plan - Problem List (1) Acute alcoholic pancreatitis Qualifiers: Acute pancreatitis complication: no infection or necrosis Qualified Code(s): K85.20 - Alcohol induced acute pancreatitis without necrosis or infection Assessment/Plan: Patient admits to heavy drinking to cope with depression. She states that she drinks a box of wine every 2-3 days. She has had alcohol withdrawal seizures in the past so it is likely that she drinks more than what she claims. The patient's lipid profile shows normal triglycerides, abdominal ultrasound does not show any evidence of gallstones. The patient has had no recent viral syndrome. The patient is not on any medications that could cause pancreatitis. This is very likely to be alcoholic pancreatitis. Lipase improved to 121 from 792 Improving Plan: Continue IV fluids Advance diet to clear liquid Pain control Electrolyte replacement Monitor closely if patient has worsening symptoms consider CT of the abdomen and pelvis. (2) Alcohol withdrawal Conclusion/Plan: Patient with worsening withdrawal symptoms last night. Tremors, hallucinations, agitation, hypertension and tachycardia Ativan increased to q1h 1-3 mg CIWA score up to 14 Started librium 25 mg q 6 h Monitor closely as patient may need ativan drip and ICU transfer Continue IVFs with MV, Folic Acid, Thiamin and Mg (3) Acute kidney injury Conclusion/Plan: Likely secondary to pancreatitis and significant fluid loss. The patient's creatinine on presentation was 3.8 with an elevated BUN. This appears to be a prerenal azotemia. Resolved with pole framer machine down to 0.8 today (4) Hypokalemia Conclusion/Plan: K was 2.8 this am Will give K riders today (5) Hyponatremia Conclusion/Plan: Likely hypovolemic hyponatremia which is improving with IV fluids as sodium is up to 131 from 126 Continue IV fluids and monitor sodium. (6) Elevated liver enzymes Conclusion/Plan: Likely secondary to alcoholic hepatitis. AST and ALT both improving. Bilirubin also improving. Hepatitis panel pending (7) Thrombocytopenia Conclusion/Plan: Plt count down to 62 was 122 on presentation Likely secondary to bone marrow suppression from alcohol abuse Will continue to monitor No signs of bleeding and other cell lines are normal (8) Depression Conclusion/Plan: Patient drinks secondary to depression. Patient does not take her prescribed antidepressant at home. Patient is supposed to be on sertraline which will be started while she is hospitalized. (9) Hypocalcemia Conclusion/Plan: Likely secondary to poor nutrition and alcohol abuse. Replace calcium Monitor calcium - Current Meds Current Meds: Current Medications Generic Name Dose Route Start Last Admin Trade Name Freq PRN Reason Stop Dose Admin Chlordiazepoxide HCl 50 mg 09/29/18 06:00 09/29/18 06:00 Librium PO 50 mg Q6HR EDISON Administration Hydromorphone HCl 1 mg 09/28/18 07:28 09/28/18 18:26 Dilaudid Inj Carp IVP 1 mg Q2H PRN Administration Pain 8 to 10 Sodium Chloride 1,000 mls @ 200 mls/hr 09/27/18 22:00 09/29/18 05:26 Normal Saline 0.9% IV 200 mls/hr .Q5H EDISON Administration Lorazepam 3 mg 09/29/18 04:44 09/29/18 08:36 Ativan Inj (Vial) IVP 3 mg Q1HR PRN Administration Alcohol Withdrawal Ondansetron HCl 4 mg 09/27/18 21:46 09/28/18 00:20 Zofran Inj IVP 4 mg Q6HR PRN Administration Nausea / Vomiting Polyethylene Glycol 17 gm 09/28/18 09:00 09/28/18 11:09 Miralax PO Not Given DAILY EDISON Sertraline HCl 25 mg 09/28/18 12:00 09/29/18 08:44 Zoloft PO 25 mg DAILY EDISON Administration Sodium Chloride 10 ml 09/27/18 21:46 09/28/18 22:47 Normal Saline Flush 0.9% IVP 10 ml PRN PRN Administration NEEDED PER PROVIDER ORDERS Sodium Chloride 10 ml 09/28/18 01:00 09/29/18 00:44 Normal Saline Flush 0.9% IVP Not Given 0100,0900,1700 EDISON Zolpidem Tartrate 5 mg 09/27/18 21:46 09/29/18 01:54 Ambien PO 5 mg QPM PRN Administration Insomnia - Lab Result Lab results reviewed: Yes Fish Bone Diagrams: 09/29/18 06:10 09/29/18 06:10 - Diagnostic Imaging Results Diagnostic Imaging Results: Final report reviewed - Additional Planning Condition/Complexity: Guarded My Orders: My Active Orders 10/01/18 05:00 MAGNESIUM [CHEM] DAILYLAB PHOSPHORUS [CHEM] DAILYLAB 10/02/18 05:00 MAGNESIUM [CHEM] DAILYLAB PHOSPHORUS [CHEM] DAILYLAB 10/03/18 05:00 MAGNESIUM [CHEM] DAILYLAB PHOSPHORUS [CHEM] DAILYLAB 09/28/18 11:50 CIWA - AR Score Card [RC] Routine Routine Social Work Consult [CONS] Routine 09/28/18 12:00 Sertraline [Zoloft] 25 mg PO DAILY 09/29/18 04:46 Oxygen [Oxygen Therapy] [RC] .PRN 09/29/18 08:00 Potassium Chlor 10 Meq/100 ml [Potassium Chloride] 10 meq in 100 ml IV Q1H 09/29/18 09:00 Multivitamin [Infuvite] 10 ml Thiamine Inj [Vitamin B-1 Inj] 100 mg Folic Acid Inj 1 mg Sodium Chloride 0.9% [Normal Saline 0.9%] 1,000 ml IV DAILY 09/29/18 Lunch Clear Liquid Diet [DIET] 09/30/18 05:00 MAGNESIUM [CHEM] DAILYLAB PHOSPHORUS [CHEM] DAILYLAB Plan Discussed with:: Patient, Family Time Spent: 31-60 minutes Subjective - Subjective Patient Reports: Other (Patient appears very shaky, tremulous, confused. She is agitated. She states her pain and nausea is better. Wants to eat.) Nursing Reports: Confused Objective Vital Signs: Vital Signs - 24 hr 09/28/18 09/28/18 09/28/18 15:21 18:18 22:55 Temperature 37.2 C 37.2 C 37.7 C H Heart Rate 97 Heart Rate [ 97 96 Brachial] Respiratory 18 16 24 Rate Blood Pressure 132/86 H [Left Brachial artery] Blood Pressure 140/98 H [Right Brachial artery] O2 Saturation 92 97 92 09/28/18 09/29/18 09/29/18 23:34 01:49 04:50 Temperature 37.7 C H 38 C H Heart Rate Heart Rate [ 110 H 110 H 113 H Brachial] Respiratory 24 16 22 Rate Blood Pressure 144/98 H [Left Brachial artery] Blood Pressure 143/105 H 138/55 H [Right Brachial artery] O2 Saturation 93 92 92 Oxygen O2 Source Nasal cannula I&O (Last 24 Hrs): Intake and Output Totals x24h 09/27/18 09/28/18 09/29/18 23:59 23:59 23:59 Intake Total 2049 5210 1250 Output Total 726 225 Balance 2049 4484 1025 General: Moderate distress (Tremors, confused.) HEENT: Atraumatic, PERRLA, EOMI, Other (Dry mucus membranes) Neck: Supple, No JVD, No thyromegaly, +2 carotid pulse wo bruit, No LAD Lymphatic: no adenopathy Neuro: Alert, Non Focal, CN 2-12 Grossly Intact Cardiovascular: No murmurs, Other (Tachycardic) Respiratory: Chest non-tender, No respiratory distress, Breath sounds nml Abdomen: Normal bowel sounds, Soft, Other (Epigastric tenderness) Extremities: No clubbing, No cyanosis, No edema, Normal pulses Skin: No rashes, No breakdown - Results Results: Laboratory Results WBC 4.9 x10^3/uL (4.8-10.8) 09/29/18 06:10 RBC 3.31 10^6/uL (4.20-5.40) L 09/29/18 06:10 Hgb 11.0 g/dL (12.0-16.0) L 09/29/18 06:10 Hct 32.2 % (37.0-47.0) L 09/29/18 06:10 MCV 97.5 fL (81.0-99.0) 09/29/18 06:10 MCH 33.2 pg (27.0-31.0) H 09/29/18 06:10 MCHC 34.1 g/dL (32.0-36.0) 09/29/18 06:10 RDW 19.2 % (12.0-15.0) H 09/29/18 06:10 Plt Count 62 10^3/uL (130-450) L 09/29/18 06:10 MPV 7.6 fL (7.9-10.8) L 09/29/18 06:10 Neut # (Auto) TIME SIGNAL WIRER 09/27/18 18:14 Lymph # (Auto) TIME SIGNAL WIRER 09/27/18 18:14 [place] # (Auto) TIME SIGNAL WIRER 09/27/18 18:14 Eos # (Auto) TIME SIGNAL WIRER 09/27/18 18:14 Baso # (Auto) TIME SIGNAL WIRER 09/27/18 18:14 Absolute Nucleated RBC TIME SIGNAL WIRER 09/27/18 18:14 Total Counted 100 09/27/18 18:14 Band Neuts % (Manual) 7 % (0-10) 09/27/18 18:14 Abnorm Lymph % (Manual) 0 % 09/27/18 18:14 Nucleated RBC % TIME SIGNAL WIRER 09/27/18 18:14 Neutrophils # (Manual) 12.3 10^3/uL (1.5-6.6) H 09/27/18 18:14 Lymphocytes # (Manual) 1.3 10^3/uL (1.5-3.5) L 09/27/18 18:14 Monocytes # (Manual) 0.9 10^3/uL (0.0-1.0) 09/27/18 18:14 Eosinophils # (Manual) 0.0 10^3/uL (0-0.7) 09/27/18 18:14 Basophils # (Manual) 0.0 10^3/uL (0-0.1) 09/27/18 18:14 Differential Comment MANUAL DIFFERENTIAL 09/27/18 18:14 Manual Slide Review Indicated 09/27/18 18:14 Platelet Estimate DECREASED (<130,000) (NORMAL) 09/27/18 18:14 Platelet Morphology NORMAL VERENICE (NORMAL) 09/27/18 18:14 RBC Morph Micro Appear 1+ ANISOCYTOSIS (NORMAL) 1+ STOMATOCYTES (NORMAL) 09/27/18 18:14 RBC Morph Micro Appear 1+ ANISOCYTOSIS (NORMAL) 1+ STOMATOCYTES (NORMAL) 09/27/18 18:14 PT 12.7 secs (9.9-12.6) H 09/27/18 18:15 INR 1.1 (0.8-1.2) 09/27/18 18:15 APTT 26.6 secs (24.9-33.3) 09/27/18 18:15 Sodium 131 mmol/L (135-145) L 09/29/18 06:10 Potassium 2.8 mmol/L (3.5-5.0) L 09/29/18 06:10 Chloride 100 mmol/L (101-111) L 09/29/18 06:10 Carbon Dioxide 21 mmol/L (21-32) 09/29/18 06:10 Anion Gap 10.0 (6-13) 09/29/18 06:10 BUN 12 mg/dL (6-20) 09/29/18 06:10 Creatinine 0.8 mg/dL (0.4-1.0) 09/29/18 06:10 Estimated GFR (MDRD) 87 (>89) L 09/29/18 06:10 Glucose 91 mg/dL (70-100) 09/29/18 06:10 Glycated Hemoglobin 5.0 % (4.6-6.2) 09/29/18 06:10 Estim Average Glucose 97 (70-100) 09/29/18 06:10 Calcium 6.9 mg/dL (8.5-10.3) L 09/29/18 06:10 Total Bilirubin 1.2 mg/dL (0.2-1.0) H 09/29/18 06:10 AST 80 IU/L (10-42) H 09/29/18 06:10 ALT 49 IU/L (10-60) 09/29/18 06:10 Alkaline Phosphatase 58 IU/L (42-121) 09/29/18 06:10 Total Protein 5.1 g/dL (6.7-8.2) L 09/29/18 06:10 Albumin 2.6 g/dL (3.2-5.5) L 09/29/18 06:10 Globulin 2.5 g/dL (2.1-4.2) 09/29/18 06:10 Albumin/Globulin Ratio 1.0 (1.0-2.2) 09/29/18 06:10 Triglycerides 223 mg/dL (-149) H 09/28/18 05:50 Cholesterol 97 mg/dL (-199) 09/28/18 05:50 LDL Cholesterol, Calc 34 mg/dL (-129) 09/28/18 05:50 VLDL Cholesterol 45 mg/dL 09/28/18 05:50 HDL Cholesterol 18 mg/dL (60-) L 09/28/18 05:50 LDL/HDL Ratio 1.9 (<4.4) 09/28/18 05:50 Cholesterol/HDL Ratio 5.4 (<4.4) 09/28/18 05:50 Lipase 121 U/L (22-51) H 09/29/18 06:10 Urine Color YELLOW 09/27/18 22:03 Urine Clarity HAZY (CLEAR) 09/27/18 22:03 Urine pH 5.5 PH (5.0-7.5) 09/27/18 22:03 Ur Specific [place] 1.025 (1.002-1.030) 09/27/18 22:03 Urine Protein 100 mg/dL (NEGATIVE) H 09/27/18 22:03 Urine Glucose (UA) 100 mg/dL (NEGATIVE) H 09/27/18 22:03 Urine Ketones NEGATIVE mg/dL (NEGATIVE) 09/27/18 22:03 Urine Occult Blood LARGE (NEGATIVE) H 09/27/18 22:03 Urine Nitrite NEGATIVE (NEGATIVE) 09/27/18 22:03 Urine Bilirubin NEGATIVE (NEGATIVE) 09/27/18 22:03 Urine Urobilinogen 0.2 (NORMAL) E.U./dL (NORMAL) 09/27/18 22:03 Ur Leukocyte Esterase NEGATIVE (NEGATIVE) 09/27/18 22:03 Urine RBC 6-10 /HPF (0-5) H 09/27/18 22:03 Urine WBC 11-25 /HPF (0-5) H 09/27/18 22:03 Ur Squamous Epith Cells MOD Squamous (<= Few) H 09/27/18 22:03 Amorphous Sediment Moderate /LPF 09/27/18 22:03 Urine Bacteria Few /HPF (None Seen) 09/27/18 22:03 Urine Casts 11-25 Granular Casts /LPF 09/27/18 22:03 Ur Microscopic Review INDICATED 09/27/18 22:03 Urine Culture Comments NOT INDICATED 09/27/18 22:03 Urine HCG, Qual NEGATIVE 09/27/18 22:03 Ethyl Alcohol < 5.0 mg/dL 09/27/18 18:15 ABX Reporting Has patient been on IV antibiotics over the past 48 hours?: No Current Medications - Current Medications Current Medications: Active Medications Generic Name Dose Route Start Last Admin Trade Name Freq PRN Reason Stop Dose Admin Chlordiazepoxide HCl 50 mg 09/29/18 06:00 09/29/18 06:00 Librium PO 50 mg Q6HR EDISON Administration Hydromorphone HCl 1 mg 09/28/18 07:28 09/28/18 18:26 Dilaudid Inj Carp IVP 1 mg Q2H PRN Administration Pain 8 to 10 Sodium Chloride 1,000 mls @ 200 mls/hr 09/27/18 22:00 09/29/18 05:26 Normal Saline 0.9% IV 200 mls/hr .Q5H EDISON Administration Multivitamins 10 ml/ Thiamine 1,011.2 mls @ 100 mls/hr 09/29/18 09:00 HCl 100 mg/ Folic Acid 1 mg/ IV Sodium Chloride DAILY EDISON Potassium Chloride 10 meq in 100 mls @ 100 mls/hr 09/29/18 08:00 Potassium Chloride IV 09/29/18 15:59 Q1H EDISON Lorazepam 3 mg 09/29/18 04:44 09/29/18 09:31 Ativan Inj (Vial) IVP 3 mg Q1HR PRN Administration Alcohol Withdrawal Ondansetron HCl 4 mg 09/27/18 21:46 09/28/18 00:20 Zofran Inj IVP 4 mg Q6HR PRN Administration Nausea / Vomiting Polyethylene Glycol 17 gm 09/28/18 09:00 09/28/18 11:09 Miralax PO Not Given DAILY EDISON Prochlorperazine Edisylate 10 mg 09/27/18 21:46 Compazine Inj IVP Q6HR PRN Nausea / Vomiting Sertraline HCl 25 mg 09/28/18 12:00 09/29/18 08:44 Zoloft PO 25 mg DAILY EDISON Administration Sodium Chloride 10 ml 09/27/18 21:46 09/28/18 22:47 Normal Saline Flush 0.9% IVP 10 ml PRN PRN Administration NEEDED PER PROVIDER ORDERS Sodium Chloride 10 ml 09/28/18 01:00 09/29/18 00:44 Normal Saline Flush 0.9% IVP Not Given 0100,0900,1700 EDISON Zolpidem Tartrate 5 mg 09/27/18 21:46 09/29/18 01:54 Ambien PO 5 mg QPM PRN Administration Insomnia No Known Home Medications 09/28/18
[2018-09-29] MEDS: POTASSIUM CHLOR 10 MEQ/100 ML 10 MEQ/100 ML BAG IV SCH ×8 (10:20→19:06)
[2018-09-29] MEDS: ACETAMINOPHEN 325 MG TABLET PO PRN (14:23)
--- NOTE | 2018-09-29 15:02 | XRAY Report ---
Reason: Tachypnic, hypoxic, fever Procedure Date: 09/29/2018 Accession Number: [id number] / [id number] Procedure: XR - Chest 1 View X-Ray CPT Code: 90829 FULL RESULT: EXAM: CHEST RADIOGRAPHY EXAM DATE: 09/29/2018 02:42 PM. CLINICAL HISTORY: Tachypnea, hypoxic, fever. COMPARISON: None. TECHNIQUE: 1 view. FINDINGS: Lungs/Pleura: Low lung volumes with small left pleural effusion and left basilar airspace disease. Mediastinum: Within exam limitations, the cardiomediastinal contour is normal. Other: None. IMPRESSION: Small left pleural effusion with left basilar airspace disease suggestive of pneumonia. [facility]
[2018-09-29] MEDS ORDERED: AZITHROMYCIN INJ 500 MG in SODIUM CHLORIDE 0.9% 250 ML IV STA (15:24)
[2018-09-29] MEDS ORDERED: cefTRIAXone 1 GM in SODIUM CHLORIDE 0.9% MINIBAG 100 ML IV STA (15:24)
[2018-09-29] MEDS: HYDROmorphone 1 MG/ML CARPUJECT IVP PRN (22:40)
[2018-09-29] MEDS ORDERED: LORazepam 0.5 MG TABLET PO PRN (22:53)
[2018-09-29] MEDS ORDERED: LORazepam 2 MG/ML VIAL IVP PRN (22:54)
[2018-09-30] MEDS: chlordiazePOXIDE 25 MG CAPSULE PO SCH ×2 (01:06→06:41)
[2018-09-30] MEDS: SODIUM CHLORIDE FLUSH 0.9% 10 ML SYRINGE IVP SCH ×4 (01:10→23:40)
[2018-09-30 06:13] LABS: HGB - HEMOGLOBIN 11.5 g/dL (12.0-16.0); MEAN CORPUSCULAR HEMOGLOBIN 33.2 pg (27.0-31.0); MEAN CORPUSCULAR VOLUME 97.6 fL (81.0-99.0); MEAN PLATELET VOLUME 7.1 fL (7.9-10.8); RED BLOOD COUNT 3.46 10^6/uL (4.20-5.40); RED CELL DISTRIBUTION WIDTH 19.4 % (12.0-15.0); WHITE BLOOD COUNT 6.4 x10^3/uL (4.8-10.8)
[2018-09-30 06:26] LABS: ALBUMIN 2.6 g/dL (3.2-5.5); ALBUMIN/GLOBULIN RATIO 0.8 (1.0-2.2); ALKALINE PHOSPHATASE 71 IU/L (42-121); ALT ALANINE AMINOTRANSFERASE 45 IU/L (10-60); AST ASPARTATE AMINOTRANSFERASE 67 IU/L (10-42); BILIRUBIN,TOTAL 1.2 mg/dL (0.2-1.0); BUN - BLOOD UREA NITROGEN < 5 mg/dL (6-20); CALCIUM 7.4 mg/dL (8.5-10.3); CARBON DIOXIDE - CO2 23 mmol/L (21-32); CHLORIDE 102 mmol/L (101-111); CREATININE 0.6 mg/dL (0.4-1.0); GFR - MDRD 122 (>89); GLUCOSE 94 mg/dL (70-100); LIPASE 68 U/L (22-51); SODIUM 132 mmol/L (135-145); TOTAL PROTEIN 5.7 g/dL (6.7-8.2)
[2018-09-30] MEDS: SODIUM CHLORIDE FLUSH 0.9% 10 ML SYRINGE IVP PRN ×2 (06:55→16:21)
[2018-09-30] MEDS ORDERED: HYDROcod/ACETAM 5/325 MG TABLET PO PRN (07:00)
[2018-09-30] MEDS ORDERED: POTASSIUM PHOSPHATE 21 MMOL in SODIUM CHLORIDE 0.9% 250 ML IV ONE (07:43)
[2018-09-30] MEDS ORDERED: POTASSIUM CHLORIDE 20 MEQ TABLET PO ONE (08:00)
[2018-09-30] MEDS: POLYETHYLENE GLYCOL 3350 17 GM PACKET PO SCH (08:06)
[2018-09-30] MEDS: SERTRALINE 25 MG TABLET PO SCH (08:07)
[2018-09-30] MEDS ORDERED: AZITHROMYCIN INJ 250 MG in SODIUM CHLORIDE 0.9% 250 ML IV SCH ×2 (09:00→11:00)
[2018-09-30] MEDS ORDERED: cefTRIAXone 1 GM in SODIUM CHLORIDE 0.9% MINIBAG 100 ML IV SCH (09:00)
[2018-09-30] MEDS ORDERED: CALCIUM ACETATE 667 MG CAPSULE PO SCH (09:00)
[2018-09-30] MEDS: ONDANSETRON 4 MG/2 ML VIAL IVP PRN (09:24)
[2018-09-30] MEDS: ACETAMINOPHEN 325 MG TABLET PO PRN ×3 (09:24→23:39)
[2018-09-30] MEDS: SODIUM CHLORIDE 0.9% 1,000 ML IV SCH (09:25)
[2018-09-30] MEDS ORDERED: diphenhydrAMINE INJ 50 MG/ML VIAL IVP STA (11:14)
[2018-09-30] MEDS ORDERED: diphenhydrAMINE INJ 50 MG/ML VIAL IVP PRN (11:14)
[2018-09-30] MEDS: SACCHAROMYCES BOULARDII 250 MG CAPSULE PO SCH ×2 (11:45→17:23)
[2018-09-30] MEDS ORDERED: levoFLOXacin 750 MG/150 ML 750 MG/150 ML BAG IV SCH (12:00)
[2018-09-30] MEDS ORDERED: chlordiazePOXIDE 25 MG CAPSULE PO SCH (12:00)
[2018-09-30 14:15] LABS: ABG BASE EXCESS -1.3 mmol/L (-2.0-3.0); ABG HCO3 21.8 mmol/L (22.0-26.0); ABG PCO2 31 mmHg (34-45); ABG PH 7.47 (7.35-7.45); ABG TCO2 22.7 MMOL/L (21.0-29.0)
[2018-09-30 14:16] LABS: ALLEN TEST POSITIVE
[2018-09-30 14:23] LABS: ABG OXYGEN SATURATION 85 % (94-98); ABG PO2 44 mmHg (80-100)
[2018-09-30] MEDS ORDERED: IPRATROPIUM/ALBUTEROL 3 ML NEB INH PRN (14:30)
[2018-09-30] MEDS ORDERED: IPRATROPIUM/ALBUTEROL 3 ML NEB INH STA (14:30)
--- NOTE | 2018-09-30 15:26 | PROVIDER PROGRESS NOTE ---
Assessment/Plan - Problem List (1) Acute respiratory failure with hypoxia Assessment/Plan: Patient with increasing hypoxia since yesterday. Patient had fever yesterday and underwent chest x-ray which showed left basilar airspace disease suggestive of pneumonia. Given patient's clinical picture she was started on treatment for community- acquired pneumonia Patient was given supplemental oxygen This afternoon the patient is having increasing oxygen requirement up to 5 L ABG shows severe hypoxia on 5 L is patient's PO2 is 44 and O2 saturation is [address] We will order a CT angiography of the thorax to rule out a pulmonary embolism, worsening pneumonia or possible acute respiratory distress syndrome as patient presented with pancreatitis Patient will be placed on oxygen mask Patient will be monitored closely and may need to be transferred to the ICU if oxygen requirement continues to increase If patient does have ARDS patient will likely need transfer to a higher level of care. (2) Community-acquired pneumonia Conclusion/Plan: Patient initially started on ceftriaxone and azithromycin yesterday however patient appears to have rash likely related to ceftriaxone this morning therefore she was switched to Levaquin. With worsening hypoxia, tachypnea and respiratory distress we will switch patient to broad-spectrum antibiotics with vancomycin and Zosyn Blood cultures pending Follow-up CT angiography of the thorax (3) Acute alcoholic pancreatitis Qualifiers: Acute pancreatitis complication: no infection or necrosis Qualified Code(s): K85.20 - Alcohol induced acute pancreatitis without necrosis or infection Assessment/Plan: Improving with lipase down to 68 from 792 Patient has improvement in abdominal pain but still requiring pain medication Continue IV fluids Advancing diet to regular this morning Appears to be resolving (4) Alcohol withdrawal Conclusion/Plan: Patient appears to be more stable from alcohol withdrawal standpoint as CIWA score is less than 10 The patient is fairly drowsy throughout the day therefore we will decrease her Librium dose to 25 mg every 6 hours and continue to titrate down as the patient recovers from her alcohol withdrawal. We will continue to monitor her with alcohol withdrawal protocol Continue IVFs with MV, Folic Acid, Thiamin and Mg (5) Acute kidney injury Conclusion/Plan: Resolved (6) Hypokalemia Conclusion/Plan: K was 2.9 this am Will give K riders again today (7) Hyponatremia Conclusion/Plan: Likely hypovolemic hyponatremia which is improving with IV fluids as sodium is up to 132 from 126 Continue IV fluids and monitor sodium. (8) Elevated liver enzymes Conclusion/Plan: Likely secondary to alcoholic hepatitis. AST and ALT both improving. Bilirubin also improving. Hepatitis panel pending (9) Thrombocytopenia Conclusion/Plan: Plt count was down to 62 from 122 on presentation now is improved to 94 Likely secondary to bone marrow suppression from alcohol abuse could also be secondary acute phase reaction Will continue to monitor No signs of bleeding and other cell lines are normal (10) Depression Conclusion/Plan: Patient drinks secondary to depression. Patient does not take her prescribed antidepressant at home. Patient is supposed to be on sertraline which will be started while she is hospitalized. Stable (11) Hypocalcemia Conclusion/Plan: Likely secondary to poor nutrition and alcohol abuse. Replace calcium Monitor calcium (12) Hypophosphatemia Conclusion/Plan: Replace phosphorus Monitor - Current Meds Current Meds: Current Medications Generic Name Dose Route Start Last Admin Trade Name Freq PRN Reason Stop Dose Admin Acetaminophen 650 mg 09/29/18 14:18 09/30/18 14:10 Tylenol PO 650 mg Q4HR PRN Administration Pain or Fever > 38C (100.4F) Chlordiazepoxide HCl 25 mg 09/30/18 12:00 09/30/18 11:36 Librium PO 25 mg Q6HR EDISON Administration Hydromorphone HCl 1 mg 09/28/18 07:28 09/29/18 22:40 Dilaudid Inj Carp IVP 1 mg Q2H PRN Administration Pain 8 to 10 Sodium Chloride 1,000 mls @ 100 mls/hr 09/29/18 12:30 09/30/18 09:25 Normal Saline 0.9% IV 100 mls/hr .Q10H EDISON Administration Ondansetron HCl 4 mg 09/27/18 21:46 09/30/18 09:24 Zofran Inj IVP 4 mg Q6HR PRN Administration Nausea / Vomiting Polyethylene Glycol 17 gm 09/28/18 09:00 09/30/18 08:06 Miralax PO 17 gm DAILY EDISON Administration Saccharomyces Boulardii 250 mg 09/30/18 11:30 09/30/18 11:45 Florastor PO 250 mg BIDWM EDISON Administration Sertraline HCl 25 mg 09/28/18 12:00 09/30/18 08:07 Zoloft PO 25 mg DAILY EDISON Administration Sodium Chloride 10 ml 09/27/18 21:46 09/30/18 06:55 Normal Saline Flush 0.9% IVP 10 ml PRN PRN Administration NEEDED PER PROVIDER ORDERS Sodium Chloride 10 ml 09/28/18 01:00 09/30/18 08:07 Normal Saline Flush 0.9% IVP 10 ml 0100,0900,1700 EDISON Administration Zolpidem Tartrate 5 mg 09/27/18 21:46 09/29/18 01:54 Ambien PO 5 mg QPM PRN Administration Insomnia - Lab Result Fish Bone Diagrams: 09/30/18 05:49 09/30/18 05:49 - Diagnostic Imaging Results Diagnostic Imaging Results: Final report reviewed - Additional Planning Condition/Complexity: Guarded My Orders: My Active Orders 10/01/18 05:00 MAGNESIUM [CHEM] DAILYLAB PHOSPHORUS [CHEM] DAILYLAB 10/02/18 05:00 MAGNESIUM [CHEM] DAILYLAB PHOSPHORUS [CHEM] DAILYLAB 10/03/18 05:00 MAGNESIUM [CHEM] DAILYLAB PHOSPHORUS [CHEM] DAILYLAB 09/29/18 14:18 Acetaminophen [Tylenol] 650 mg PO Q4HR PRN 09/29/18 16:29 Blood Culture [CULTURE, BLOOD #1] [RM] Stat 09/29/18 17:24 Blood Culture [CULTURE, BLOOD #2] [RM] Stat 09/30/18 FLU A/B [INFLUENZA VIRUS A+B] Urgent 09/30/18 11:14 diphenhydrAMINE INJ [Benadryl Inj] 25 mg IVP Q6H PRN 09/30/18 11:30 Saccharomyces Boulardii [Florastor] 250 mg PO BIDWM 09/30/18 12:00 chlordiazePOXIDE [Librium] 25 mg PO Q6HR 09/30/18 13:38 ABG [Arterial Blood Gases - RT] [RC] .ONCE 09/30/18 14:29 Thorax [Chest Angio (PE)] [CT] Stat 09/30/18 14:30 Ipratropium/Albuterol [Duoneb] 3 ml INH Q4HR PRN 09/30/18 14:31 Nebulizer/MDI Tx. [RC] QID Resp Teach Nebulizer/MDI [RC] .ONCE 09/30/18 14:39 LACTIC ACID, VENOUS [CHEM] Stat 09/30/18 16:00 Multivitamin [Infuvite] 10 ml Thiamine Inj [Vitamin B-1 Inj] 100 mg Folic Acid Inj 1 mg Sodium Chloride 0.9% [Normal Saline 0.9%] 1,000 ml IV Q24H Piperacillin/Tazobactam [Zosyn] 3.375 gm Sodium Chloride 0.9% Minibag [Normal Saline 0.9% Minibag] 100 ml IV Q6H 09/30/18 17:00 Vancomycin Inj [Vancomycin] 1 gm Sodium Chloride 0.9% [Normal Saline 0.9%] 250 ml IV Q12H 09/30/18 Lunch Regular Diet [DIET] Plan Discussed with:: Patient, Family, Mother, Father Time Spent: 31-60 minutes Subjective - Subjective Patient Reports: Other (Patient appears to be slightly drowsy this morning. She is tachypneic and appears to be in respiratory distress. The patient states that she is not short of breath and denies any coughing or fevers overnight. She continues to state that she does have abdominal pain. She was also slightly nauseated and did vomit after her breakfast.) Nursing Reports: Sedated, Shortness of Breath Objective Vital Signs: Vital Signs - 24 hr 09/29/18 09/29/18 09/29/18 15:18 15:46 16:05 Temperature 38.4 C H Heart Rate [ 106 H Brachial] Respiratory 22 Rate Blood Pressure [Left Brachial artery] Blood Pressure 148/98 H [Right Brachial artery] O2 Saturation 87 L 91 L 94 09/29/18 09/29/18 09/30/18 17:54 20:29 00:00 Temperature 37.7 C H 36.8 C 37.1 C Heart Rate [ 97 106 H Brachial] Respiratory 24 24 Rate Blood Pressure 143/93 H [Left Brachial artery] Blood Pressure 143/89 H [Right Brachial artery] O2 Saturation 93 93 09/30/18 08:00 Temperature 37.4 C Heart Rate [ 109 H Brachial] Respiratory 30 H Rate Blood Pressure 144/91 H [Left Brachial artery] Blood Pressure [Right Brachial artery] O2 Saturation 88 L Oxygen O2 Source Nasal cannula I&O (Last 24 Hrs): Intake and Output Totals x24h 09/28/18 09/29/18 09/30/18 23:59 23:59 23:59 Intake Total 5210 5736.2 1570.000 Output Total 726 1275 870 Balance 4484 4461.2 700.000 General: Oriented x3, Moderate distress (Tachypneic, ill-appearing), Other (Drowsy) HEENT: Atraumatic, PERRLA, EOMI, Other (Dry mucous membrane) Neck: Supple, No JVD, No thyromegaly, +2 carotid pulse wo bruit, No LAD Lymphatic: no adenopathy Neuro: Non Focal, CN 2-12 Grossly Intact, Oriented Times 3, Other (Drowsy) Cardiovascular: No murmurs, Other (Tachycardia) Respiratory: Wheezes (Scattered), Rhonchi (Left base), Other (Tachypneic with respiratory distress) Abdomen: Soft, No hepatospenomegaly, Other (Mild epigastric tenderness) Extremities: No clubbing, No cyanosis, No edema, Normal pulses Skin: No breakdown Comments/Notes: Patient has diffuse rash which is blotchy with erythema - Results Results: Laboratory Results WBC 6.4 x10^3/uL (4.8-10.8) 09/30/18 05:49 RBC 3.46 10^6/uL (4.20-5.40) L 09/30/18 05:49 Hgb 11.5 g/dL (12.0-16.0) L 09/30/18 05:49 Hct 33.8 % (37.0-47.0) L 09/30/18 05:49 MCV 97.6 fL (81.0-99.0) 09/30/18 05:49 MCH 33.2 pg (27.0-31.0) H 09/30/18 05:49 MCHC 34.0 g/dL (32.0-36.0) 09/30/18 05:49 RDW 19.4 % (12.0-15.0) H 09/30/18 05:49 Plt Count 94 10^3/uL (130-450) L 09/30/18 05:49 MPV 7.1 fL (7.9-10.8) L 09/30/18 05:49 Neut # (Auto) TAR HEATER OPERATOR 09/27/18 18:14 Lymph # (Auto) TAR HEATER OPERATOR 09/27/18 18:14 [place] # (Auto) TAR HEATER OPERATOR 09/27/18 18:14 Eos # (Auto) TAR HEATER OPERATOR 09/27/18 18:14 Baso # (Auto) TAR HEATER OPERATOR 09/27/18 18:14 Absolute Nucleated RBC TAR HEATER OPERATOR 09/27/18 18:14 Total Counted 100 09/27/18 18:14 Band Neuts % (Manual) 7 % (0-10) 18 18:14 Abnorm Lymph % (Manual) 0 % 09/27/18 18:14 Nucleated RBC % TAR HEATER OPERATOR 09/27/18 18:14 Neutrophils # (Manual) 12.3 10^3/uL (1.5-6.6) H 09/27/18 18:14 Lymphocytes # (Manual) 1.3 10^3/uL (1.5-3.5) L 09/27/18 18:14 Monocytes # (Manual) 0.9 10^3/uL (0.0-1.0) 09/27/18 18:14 Eosinophils # (Manual) 0.0 10^3/uL (0-0.7) 09/27/18 18:14 Basophils # (Manual) 0.0 10^3/uL (0-0.1) 09/27/18 18:14 Differential Comment MANUAL DIFFERENTIAL 09/27/18 18:14 Manual Slide Review Indicated 09/27/18 18:14 Platelet Estimate DECREASED (<130,000) (NORMAL) 09/27/18 18:14 Platelet Morphology NORMAL VERENICE (NORMAL) 09/27/18 18:14 RBC Morph Micro Appear 1+ ANISOCYTOSIS (NORMAL) 1+ STOMATOCYTES (NORMAL) 09/27/18 18:14 RBC Morph Micro Appear 1+ ANISOCYTOSIS (NORMAL) 1+ STOMATOCYTES (NORMAL) 09/27/18 18:14 PT 12.7 secs (9.9-12.6) H 09/27/18 18:15 INR 1.1 (0.8-1.2) 09/27/18 18:15 APTT 26.6 secs (24.9-33.3) 09/27/18 18:15 Bld Gas Analysis Time 1409 09/30/18 14:09 Sample Site RIGHT RADIAL 09/30/18 14:09 ABG pH 7.47 (7.35-7.45) H 09/30/18 14:09 ABG pCO2 31 mmHg (34-45) L 09/30/18 14:09 ABG pO2 44 mmHg (80-100) L* 09/30/18 14:09 ABG HCO3 21.8 mmol/L (22.0-26.0) L 09/30/18 14:09 ABG Total CO2 22.7 MMOL/L (21.0-29.0) 09/30/18 14:09 ABG O2 Saturation 85 % (94-98) L* 09/30/18 14:09 ABG Oximetry Spot Check 90 % 09/30/18 14:09 ABG Base Excess -1.3 mmol/L (-2.0-3.0) 09/30/18 14:09 [place] Test POSITIVE 09/30/18 14:09 Respiration Rate 26 b/min 09/30/18 14:09 O2 Delivery Device NASAL CANNULA 09/30/18 14:09 O2 Liters/Min 5.00 LPM 09/30/18 14:09 Sodium 132 mmol/L (135-145) L 09/30/18 05:49 Potassium 2.9 mmol/L (3.5-5.0) L 09/30/18 05:49 Chloride 102 mmol/L (101-111) 09/30/18 05:49 Carbon Dioxide 23 mmol/L (21-32) 09/30/18 05:49 Anion Gap 7.0 (6-13) 09/30/18 05:49 BUN < 5 mg/dL (6-20) L 09/30/18 05:49 Creatinine 0.6 mg/dL (0.4-1.0) 09/30/18 05:49 Estimated GFR (MDRD) 122 (>89) 09/30/18 05:49 Glucose 94 mg/dL (70-100) 09/30/18 05:49 Glycated Hemoglobin 5.0 % (4.6-6.2) 09/29/18 06:10 Estim Average Glucose 97 (70-100) 09/29/18 06:10 Calcium 7.4 mg/dL (8.5-10.3) L 09/30/18 05:49 Phosphorus 1.0 mg/dL (2.5-4.6) L* 09/30/18 05:49 Magnesium 2.0 mg/dL (1.7-2.8) 09/30/18 05:49 Total Bilirubin 1.2 mg/dL (0.2-1.0) H 09/30/18 05:49 AST 67 IU/L (10-42) H 09/30/18 05:49 ALT 45 IU/L (10-60) 09/30/18 05:49 Alkaline Phosphatase 71 IU/L (42-121) 09/30/18 05:49 Total Protein 5.7 g/dL (6.7-8.2) L 09/30/18 05:49 Albumin 2.6 g/dL (3.2-5.5) L 09/30/18 05:49 Globulin 3.1 g/dL (2.1-4.2) 09/30/18 05:49 Albumin/Globulin Ratio 0.8 (1.0-2.2) L 09/30/18 05:49 Triglycerides 223 mg/dL (-149) H 09/28/18 05:50 Cholesterol 97 mg/dL (-199) 09/28/18 05:50 LDL Cholesterol, Calc 34 mg/dL (-129) 09/28/18 05:50 VLDL Cholesterol 45 mg/dL 09/28/18 05:50 HDL Cholesterol 18 mg/dL (60-) L 09/28/18 05:50 LDL/HDL Ratio 1.9 (<4.4) 09/28/18 05:50 Cholesterol/HDL Ratio 5.4 (<4.4) 09/28/18 05:50 Lipase 68 U/L (22-51) H 09/30/18 05:49 Urine Color YELLOW 09/27/18 22:03 Urine Clarity HAZY (CLEAR) 09/27/18 22:03 Urine pH 5.5 PH (5.0-7.5) 09/27/18 22:03 Ur Specific Reading 1.025 (1.002-1.030) 09/27/18 22:03 Urine Protein 100 mg/dL (NEGATIVE) H 09/27/18 22:03 Urine Glucose (UA) 100 mg/dL (NEGATIVE) H 09/27/18 22:03 Urine Ketones NEGATIVE mg/dL (NEGATIVE) 09/27/18 22:03 Urine Occult Blood LARGE (NEGATIVE) H 09/27/18 22:03 Urine Nitrite NEGATIVE (NEGATIVE) 09/27/18 22:03 Urine Bilirubin NEGATIVE (NEGATIVE) 09/27/18 22:03 Urine Urobilinogen 0.2 (NORMAL) E.U./dL (NORMAL) 09/27/18 22:03 Ur Leukocyte Esterase NEGATIVE (NEGATIVE) 09/27/18 22:03 Urine RBC 6-10 /HPF (0-5) H 09/27/18 22:03 Urine WBC 11-25 /HPF (0-5) H 09/27/18 22:03 Ur Squamous Epith Cells MOD Squamous (<= Few) H 09/27/18 22:03 Amorphous Sediment Moderate /LPF 09/27/18 22:03 Urine Bacteria Few /HPF (None Seen) 09/27/18 22:03 Urine Casts 11-25 Granular Casts /LPF 09/27/18 22:03 Ur Microscopic Review INDICATED 09/27/18 22:03 Urine Culture Comments NOT INDICATED 09/27/18 22:03 Urine HCG, Qual NEGATIVE 09/27/18 22:03 Ethyl Alcohol < 5.0 mg/dL 09/27/18 18:15 ABX Reporting Has patient been on IV antibiotics over the past 48 hours?: No Current Medications - Current Medications Current Medications: Active Medications Generic Name Dose Route Start Last Admin Trade Name Freq PRN Reason Stop Dose Admin Acetaminophen 650 mg 09/29/18 14:18 09/30/18 14:10 Tylenol PO 650 mg Q4HR PRN Administration Pain or Fever > 38C (100.4F) Hydrocodone Bitart/Acetaminophen 1 tab 09/30/18 07:00 [place] 5/325 PO Q4HR PRN PAIN Albuterol/Ipratropium 3 ml 09/30/18 14:30 Duoneb INH Q4HR PRN Wheezing Chlordiazepoxide HCl 25 mg 09/30/18 12:00 09/30/18 11:36 Librium PO 25 mg Q6HR EDISON Administration Diphenhydramine HCl 25 mg 09/30/18 11:14 Benadryl Inj IVP Q6H PRN Allergy Symptoms Hydromorphone HCl 1 mg 09/28/18 07:28 09/29/18 22:40 Dilaudid Inj Carp IVP 1 mg Q2H PRN Administration Pain 8 to 10 Sodium Chloride 1,000 mls @ 100 mls/hr 09/29/18 12:30 09/30/18 09:25 Normal Saline 0.9% IV 100 mls/hr .Q10H EDISON Administration Multivitamins 10 ml/ Thiamine 1,011.2 mls @ 100 mls/hr 09/30/18 16:00 HCl 100 mg/ Folic Acid 1 mg/ IV Sodium Chloride Q24H EDISON Piperacillin Sod/Tazobactam 100 mls @ 200 mls/hr 09/30/18 16:00 Sod 3.375 gm/ Sodium Chloride IV Q6H EDISON Vancomycin HCl 1 gm/ Sodium 250 mls @ 167 mls/hr 09/30/18 17:00 Chloride IV Q12H EDISON Lorazepam 0.5 mg 09/29/18 22:53 Ativan PO Q2H PRN Anxiety Lorazepam 1 mg 09/29/18 22:54 Ativan Inj (Vial) IVP Q1HR PRN Alcohol Withdrawal Ondansetron HCl 4 mg 09/27/18 21:46 09/30/18 09:24 Zofran Inj IVP 4 mg Q6HR PRN Administration Nausea / Vomiting Polyethylene Glycol 17 gm 09/28/18 09:00 09/30/18 08:06 Miralax PO 17 gm DAILY EDISON Administration Prochlorperazine Edisylate 10 mg 09/27/18 21:46 Compazine Inj IVP Q6HR PRN Nausea / Vomiting Saccharomyces Boulardii 250 mg 09/30/18 11:30 09/30/18 11:45 Florastor PO 250 mg BIDWM EDISON Administration Sertraline HCl 25 mg 09/28/18 12:00 09/30/18 08:07 Zoloft PO 25 mg DAILY EDISON Administration Sodium Chloride 10 ml 09/27/18 21:46 09/30/18 06:55 Normal Saline Flush 0.9% IVP 10 ml PRN PRN Administration NEEDED PER PROVIDER ORDERS Sodium Chloride 10 ml 09/28/18 01:00 09/30/18 08:07 Normal Saline Flush 0.9% IVP 10 ml 0100,0900,1700 EDISON Administration Zolpidem Tartrate 5 mg 09/27/18 21:46 09/29/18 01:54 Ambien PO 5 mg QPM PRN Administration Insomnia No Known Home Medications 09/28/18
[2018-09-30] MEDS ORDERED: IOVERSOL 320 100 ML VIAL IVP ONE ×2 (15:51→18:30)
[2018-09-30] MEDS ORDERED: MULTIVITAMIN 10 ML, THIAMINE INJ 100 MG, FOLIC ACID INJ 1 MG in SODIUM CHLORIDE 0.9% 1,... IV SCH (16:00)
[2018-09-30] MEDS ORDERED: SODIUM CHLORIDE 0.9% MINIBAG 100 ML IV ONE (16:16)
[2018-09-30] MEDS: PIPERACILLIN/TAZOBACTAM 3.375 GM in SODIUM CHLORIDE 0.9% MINIBAG 100 ML IV SCH ×2 (16:20→23:40)
[2018-09-30] MEDS: VANCOMYCIN INJ 1 GM in SODIUM CHLORIDE 0.9% 250 ML IV SCH (17:06)
[2018-09-30] MEDS: oxyCODONE 5 MG TABLET PO PRN (17:16)
[2018-09-30 17:44] LABS: BASOPHILS % (AUTO) 0.1 %; EOSINOPHILS % (AUTO) 0.3 %; HGB - HEMOGLOBIN 10.1 g/dL (12.0-16.0); LYMPHOCYTES # (AUTO) 0.7 10^3/uL (1.5-3.5); LYMPHOCYTES % (AUTO) 10.9 %; MEAN CORPUSCULAR HEMOGLOBIN 32.8 pg (27.0-31.0); MEAN CORPUSCULAR HGB CONC 33.7 g/dL (32.0-36.0); MEAN CORPUSCULAR VOLUME 97.5 fL (81.0-99.0); MEAN PLATELET VOLUME 7.2 fL (7.9-10.8); MONOCYTES # (AUTO) 1.8 10^3/uL (0.0-1.0); MONOCYTES % (AUTO) 26.8 %; NEUTROPHILS # (AUTO) 4.1 10^3/uL (1.5-6.6); NEUTROPHILS % (AUTO) 61.9 %; PLT - PLATELET COUNT 111 10^3/uL (130-450); RED BLOOD COUNT 3.08 10^6/uL (4.20-5.40); RED CELL DISTRIBUTION WIDTH 19.3 % (12.0-15.0); WHITE BLOOD COUNT 6.6 x10^3/uL (4.8-10.8)
[2018-09-30 18:09] LABS: ABG PCO2 33 mmHg (34-45); ABG PH 7.47 (7.35-7.45)
[2018-09-30 18:10] LABS: ABG BASE EXCESS -0.3 mmol/L (-2.0-3.0); ABG HCO3 22.9 mmol/L (22.0-26.0); ABG OXYGEN SATURATION 90 % (94-98); ABG TCO2 23.9 MMOL/L (21.0-29.0); ALLEN TEST POSITIVE
[2018-09-30 18:13] LABS: ABG PO2 52 mmHg (80-100)
[2018-09-30] MEDS ORDERED: FUROSEMIDE 40 MG/4 ML VIAL IVP STA (18:20)
[2018-09-30] MEDS ORDERED: methylPREDNISolone SUCCINATE 125 MG/2 ML VIAL IVP STA (18:21)
[2018-09-30 18:24] LABS: ALBUMIN 2.3 g/dL (3.2-5.5); ALBUMIN/GLOBULIN RATIO 0.8 (1.0-2.2); ALKALINE PHOSPHATASE 67 IU/L (42-121); ALT ALANINE AMINOTRANSFERASE 41 IU/L (10-60); AST ASPARTATE AMINOTRANSFERASE 58 IU/L (10-42); BILIRUBIN,TOTAL 0.9 mg/dL (0.2-1.0); BUN - BLOOD UREA NITROGEN < 5 mg/dL (6-20); CARBON DIOXIDE - CO2 23 mmol/L (21-32); CHLORIDE 105 mmol/L (101-111); CREATININE 0.6 mg/dL (0.4-1.0); GFR - MDRD 122 (>89); GLUCOSE 96 mg/dL (70-100); MAGNESIUM 1.8 mg/dL (1.7-2.8); PHOSPHORUS 1.8 mg/dL (2.5-4.6); SODIUM 134 mmol/L (135-145); TOTAL PROTEIN 5.1 g/dL (6.7-8.2)
[2018-09-30 18:29] LABS: VBG PH 7.432 (7.31-7.41)
--- NOTE | 2018-09-30 19:00 | CT Report ---
Reason: Severe hypoxia, pneumonia, pancreatitis poss ARDS Procedure Date: 09/30/2018 Accession Number: [id number] / [id number] Procedure: CT - Chest Angio (PE) CPT Code: FULL RESULT: EXAM: CT ANGIOGRAM CHEST EXAM DATE: 09/30/2018 06:40 PM. CLINICAL HISTORY: Severe hypoxia, pneumonia, pancreatitis poss ARDS. COMPARISON: CHEST 1 VIEW 09/29/2018 2:22 PM. TECHNIQUE: Routine helical imaging was performed through the chest in the pulmonary arterial phase. IV Contrast: OPTIRAY 320 80mL. Reconstructions: Coronal 3-D MIP reconstructions.Sagittal and coronal. In accordance with CT protocol optimization, one or more of the following dose reduction techniques were utilized for this exam: automated exposure control, adjustment of mA and/or KV based on patient size, or use of iterative reconstructive technique. FINDINGS: Pulmonary Arteries: Diagnostic quality: Images are motion degraded, but overall adequate through the segmental arteries. No evidence for acute or chronic pulmonary emboli. RV/LV is within normal limits. There is no interventricular septal bowing. There is no reflux of contrast material in the IVC. Lungs/Pleura: There are moderate bilateral pleural effusions. There is bilateral lower lobe atelectasis/consolidation. There is airspace disease and consolidation in both upper lobes. There is linear atelectasis in the right middle lobe. No pneumothorax. Mediastinum: Heart size within normal limits. No pathologic adenopathy. Thoracic Aorta: Unremarkable. Upper Abdomen: Diffusely decreased attenuation of the liver consistent with steatosis. There is extensive fluid and edema around the pancreas and in the left upper quadrant. There is relatively poor enhancement of the neck region of the pancreas, series 4 image 140. Other: None. IMPRESSION: 1. Motion degraded exam, but no convincing evidence for pulmonary embolism. 2. Bilateral airspace disease and consolidation, concerning for pneumonia. 3. Moderate bilateral pleural effusions. Bilateral lower lobe consolidation or atelectasis. 4. Findings consistent with pancreatitis. There is relatively poor enhancement of the neck of the pancreas which is concerning for necrosis but incompletely assessed on this exam. 5. There is hepatic steatosis. RADIA
[2018-09-30 19:29] LABS: DIFFERENTIAL COMMENT MANUAL=AUTO DIFF; PLATELET ESTIMATE, MANUAL DECREASED (<130,000) (NORMAL); PLATELET MORPHOLOGY NORMAL APPEARANCE (NORMAL)
[2018-09-30] MEDS: HYDROmorphone 1 MG/ML CARPUJECT IVP PRN (19:31)
--- NOTE | 2018-09-30 20:06 | PROVIDER PROGRESS NOTE ---
Hospitalist Cross-cover Note - Cross-Cover Note Cross-Cover Note: Update Cross cover note.Arrived on shift this evening and discussed with daytime hospitalist, Dr. Almaguer, that the patient has been declining throughout the day with respect to her respiratory status. He had already ordered a CT angiogram which was pending. In the meantime, the patient was having an increasing oxygen requirement with 5 L nasal cannula and respiratory rates in the 30s, with the initial arterial blood gas that showed a PO2 of 43.8. After some time with waiting for the CT angiogram, the oxygen was turned up to 9 L nasal cannula and a second arterial blood gas was done about 6 hours later showing minimal improvement to 52.302. After this point, the CT angiogram did come back showing moderate pleural effusions is the most likely underlying etiology versus ARDS. I did go examined the patient at this time to discuss the results of the CT angiogram with the patient and her mother. I also discussed the plan. Plan was as follows, to try an initial dose of Lasix while we waited for the results of the CT angiogram, 40 mg IV, as well as methylprednisolone 125 mg x1. The Lasix seems to have helped with about 700 cc of urine output. The respiratory rate is still somewhat elevated. At this point, after seeing the results of the CT angiogram, the continued need for oxygen support, and the significant improvement in urine output with the IV Lasix, I did call to discuss the patient's case with an big data engineer at [facility]. Dr. Cruz, the big data engineer on-call, was kind enough to listen to my case presentation and provide advice. Fortunately she agreed with our management and does think that in fact this is due to ARDS. Having said that, she stated that she would not necessarily do anything different than we are doing at this point and would continue the scheduled IV Lasix as long as her blood pressure tolerates. She did not recommend continuing the methylprednisolone. She was more than happy to provide further guidance through the night if necessary or if she were to require intubation then she did agree that a transfer would be recommended. Otherwise in the meantime watchful waiting and more time and diuresis are the only treatments that she recommends. After thinking her for her guidance and advice, we decided to continue with this plan and she will be monitored closely through the night.
[2018-09-30] MEDS ORDERED: methylPREDNISolone SUCCINATE 125 MG/2 ML VIAL IVP SCH (22:00)
[2018-09-30] MEDS ORDERED: FUROSEMIDE 20 MG/2 ML VIAL IVP SCH (23:50)
[2018-10-01] MEDS: SODIUM CHLORIDE FLUSH 0.9% 10 ML SYRINGE IVP PRN ×8 (00:03→22:36)
[2018-10-01] MEDS: HYDROmorphone 1 MG/ML CARPUJECT IVP PRN ×3 (00:03→22:31)
[2018-10-01] MEDS ORDERED: FUROSEMIDE 20 MG/2 ML VIAL IVP STA (00:30)
[2018-10-01] MEDS: oxyCODONE 5 MG TABLET PO PRN ×4 (03:20→21:18)
[2018-10-01] MEDS: PIPERACILLIN/TAZOBACTAM 3.375 GM in SODIUM CHLORIDE 0.9% MINIBAG 100 ML IV SCH ×4 (04:52→22:35)
[2018-10-01] MEDS: FUROSEMIDE 40 MG/4 ML VIAL IVP SCH ×2 (05:42→14:14)
[2018-10-01] MEDS: VANCOMYCIN INJ 1 GM in SODIUM CHLORIDE 0.9% 250 ML IV SCH ×2 (05:42→17:53)
[2018-10-01 05:54] LABS: BASOPHILS % (AUTO) 0.2 %; EOSINOPHILS % (AUTO) 0.4 %; HGB - HEMOGLOBIN 10.9 g/dL (12.0-16.0); LYMPHOCYTES % (AUTO) 10.5 %; MEAN CORPUSCULAR HEMOGLOBIN 33.6 pg (27.0-31.0); MEAN CORPUSCULAR HGB CONC 34.4 g/dL (32.0-36.0); MEAN CORPUSCULAR VOLUME 97.6 fL (81.0-99.0); MEAN PLATELET VOLUME 7.7 fL (7.9-10.8); MONOCYTES # (AUTO) 2.2 10^3/uL (0.0-1.0); MONOCYTES % (AUTO) 24.5 %; NEUTROPHILS # (AUTO) 5.9 10^3/uL (1.5-6.6); NEUTROPHILS % (AUTO) 64.4 %; PLT - PLATELET COUNT 131 10^3/uL (130-450); RED BLOOD COUNT 3.23 10^6/uL (4.20-5.40); RED CELL DISTRIBUTION WIDTH 19.4 % (12.0-15.0); WHITE BLOOD COUNT 9.1 x10^3/uL (4.8-10.8)
[2018-10-01 06:06] LABS: ALBUMIN 2.5 g/dL (3.2-5.5); ALBUMIN/GLOBULIN RATIO 0.8 (1.0-2.2); ALKALINE PHOSPHATASE 77 IU/L (42-121); ALT ALANINE AMINOTRANSFERASE 39 IU/L (10-60); AST ASPARTATE AMINOTRANSFERASE 45 IU/L (10-42); BILIRUBIN,TOTAL 0.9 mg/dL (0.2-1.0); BUN - BLOOD UREA NITROGEN < 5 mg/dL (6-20); CALCIUM 7.5 mg/dL (8.5-10.3); CARBON DIOXIDE - CO2 26 mmol/L (21-32); CHLORIDE 98 mmol/L (101-111); CREATININE 0.7 mg/dL (0.4-1.0); GFR - MDRD 102 (>89); GLUCOSE 105 mg/dL (70-100); SODIUM 137 mmol/L (135-145); TOTAL PROTEIN 5.5 g/dL (6.7-8.2)
[2018-10-01 06:09] LABS: VBG PH 7.564 (7.31-7.41)
[2018-10-01 06:23] LABS: MAGNESIUM 1.5 mg/dL (1.7-2.8); PHOSPHORUS 2.2 mg/dL (2.5-4.6)
[2018-10-01] MEDS: ACETAMINOPHEN 325 MG TABLET PO PRN ×3 (07:58→21:18)
[2018-10-01] MEDS: SERTRALINE 25 MG TABLET PO SCH (07:58)
[2018-10-01] MEDS: SACCHAROMYCES BOULARDII 250 MG CAPSULE PO SCH ×2 (07:59→17:01)
[2018-10-01] MEDS: SODIUM CHLORIDE FLUSH 0.9% 10 ML SYRINGE IVP SCH ×2 (07:59→17:00)
[2018-10-01] MEDS ORDERED: POTASSIUM CHLORIDE 20 MEQ TABLET PO ONE ×2 (08:43→17:00)
[2018-10-01] MEDS ORDERED: chlordiazePOXIDE 25 MG CAPSULE PO SCH (09:00)
[2018-10-01] MEDS: POLYETHYLENE GLYCOL 3350 17 GM PACKET PO SCH (09:07)
[2018-10-01] MEDS: MAGNESIUM OXIDE 400 MG TABLET PO SCH (09:08)
[2018-10-01] MEDS: SENNA 8.6 MG TABLET PO SCH (09:08)
[2018-10-01] MEDS: DOCUSATE SODIUM 250 MG CAPSULE PO SCH (09:08)
--- NOTE | 2018-10-01 12:23 | PROVIDER PROGRESS NOTE ---
Assessment/Plan - Problem List (1) ARDS (adult respiratory distress syndrome) Assessment/Plan: The CTA done yesterday evening was consistent with pulmonary edema with pleural effusion vs ARDS. Troponin was not detectable. The Hospitalist conferred with the Prov. [employer] Physical Therapist last night, that her ARDS is often seen associated with pancreatitis. And they discussed management, which was started: Lasix iv bid. With that, her oxygenation and air hunger improved. Follow CXR for clearing. Continue diuresis. Obtain an Echo to rule out cardiomyopathy, possibly from potential drug abuse or from her alcoholism. (2) CAP (community acquired pneumonia) Assessment/Plan: Continue iv antibiotics. Monitor CXR. (3) Acute alcoholic pancreatitis Qualifiers: Acute pancreatitis complication: no infection or necrosis Qualified Code(s): K85.20 - Alcohol induced acute pancreatitis without necrosis or infection Assessment/Plan: Resolved. The Hospitalist conferred with the Prov. [employer] Physical Therapist last night, that her ARDS is often seen associated with pancreatitis. (4) Alcoholism Assessment/Plan: Pt is S/P alcohol withdrawal. She has been weaned off Librium and using no Ativan any more. Start daily Thiamine replacement. (5) Hypomagnesemia Assessment/Plan: Replace and follow daily labs. (6) Hypokalemia Assessment/Plan: Replace K and follow daily or bid while on iv diuretic. (7) Anemia Assessment/Plan: Possibly hemodilutional. No evidence of I blood loss anemia during tgis admission. Possibly from alcohol bone marrow suppression. Will check Iron panel and stool guaic, also B12 and Folate levels and replace if low. - Current Meds Current Meds: Current Medications Generic Name Dose Route Start Last Admin Trade Name Freq PRN Reason Stop Dose Admin Acetaminophen 650 mg 09/29/18 14:18 10/01/18 07:58 Tylenol PO 650 mg Q4HR PRN Administration Pain or Fever > 38C (100.4F) Docusate Sodium 250 - 500 mg 10/01/18 09:00 10/01/18 09:08 Colace 250mg Capsule PO 250 mg DAILY EDISON Administration Furosemide 40 mg 10/01/18 06:00 10/01/18 05:42 Lasix Inj 40 Mg Vial IVP 40 mg BIDDIURETIC EDISON Administration Hydromorphone HCl 1 mg 09/30/18 16:30 10/01/18 07:59 Dilaudid Inj Carp IVP 1 mg Q8H PRN Administration Pain 8 to 10 Piperacillin Sod/Tazobactam 100 mls @ 200 mls/hr 09/30/18 16:00 10/01/18 11:26 Sod 3.375 gm/ Sodium Chloride IV Infused Q6H EDISON Infusion Vancomycin HCl 1 gm/ Sodium 250 mls @ 167 mls/hr 09/30/18 17:00 10/01/18 07:12 Chloride IV Infused Q12H [facility] Infusion Magnesium Oxide 400 mg 10/01/18 09:00 10/01/18 09:08 Mag Ox PO 400 mg DAILYWM EDISON Administration Ondansetron HCl 4 mg 09/27/18 21:46 09/30/18 09:24 Zofran Inj IVP 4 mg Q6HR PRN Administration Nausea / Vomiting Oxycodone HCl 5 mg 09/30/18 16:30 10/01/18 10:56 Roxicodone PO 5 mg Q4HR PRN Administration PAIN Polyethylene Glycol 17 gm 09/28/18 09:00 10/01/18 09:07 Miralax PO 17 gm DAILY EDISON Administration Saccharomyces Boulardii 250 mg 09/30/18 11:30 10/01/18 07:59 Florastor PO 250 mg BIDWM EDISON Administration Senna 8.6 - 17.2 mg 10/01/18 09:00 10/01/18 09:08 Senokot PO Not Given DAILY EDISON Sertraline HCl 25 mg 09/28/18 12:00 10/01/18 07:58 Zoloft PO 25 mg DAILY EDISON Administration Sodium Chloride 10 ml 09/27/18 21:46 10/01/18 11:04 Normal Saline Flush 0.9% IVP 10 ml PRN PRN Administration NEEDED PER PROVIDER ORDERS Sodium Chloride 10 ml 09/28/18 01:00 10/01/18 07:59 Normal Saline Flush 0.9% IVP 10 ml 0100,0900,1700 EDISON Administration Zolpidem Tartrate 5 mg 09/27/18 21:46 09/29/18 01:54 Ambien PO 5 mg QPM PRN Administration Insomnia - Lab Result Fish Bone Diagrams: 10/01/18 05:44 10/01/18 13:45 - Additional Planning My Orders: My Active Orders 10/01/18 08:10 Echo Transthoracic Complete [ECHO] Routine 10/01/18 09:00 Magnesium Oxide [Mag Ox] 400 mg PO DAILYWM 10/01/18 14:00 BMP - BASIC METABOLIC PANEL [CHEM] Timed 10/02/18 08:00 Chest 1 View X-Ray [XR] Routine Potassium Chloride [K-Dur] 20 meq PO DAILYWM Subjective - Subjective Patient Reports: Feeling Better Nursing Reports: Other (After diuresis and dests corrected, she was able to sleep comfortably.) Objective Vital Signs: Vital Signs - 24 hr 09/30/18 09/30/18 09/30/18 15:34 16:00 21:00 Temperature 37.4 C 37.1 C Heart Rate 98 Heart Rate [ 107 H 108 H Brachial] Respiratory 29 H 28 H 18 Rate Blood Pressure 157/108 H 157/101 H [Left Brachial artery] Blood Pressure [Right Brachial artery] O2 Saturation 95 96 10/01/18 10/01/18 10/01/18 00:00 01:51 05:40 Temperature 38.0 C H 37.1 C Heart Rate Heart Rate [ 99 108 H 104 H Brachial] Respiratory 24 20 Rate Blood Pressure 136/97 H [Left Brachial artery] Blood Pressure 139/100 H 131/98 H [Right Brachial artery] O2 Saturation 98 96 10/01/18 10/01/18 08:00 09:10 Temperature 37.8 C H 36.4 C L Heart Rate Heart Rate [ 103 H Brachial] Respiratory 22 Rate Blood Pressure [Left Brachial artery] Blood Pressure 129/95 H [Right Brachial artery] O2 Saturation 100 Oxygen O2 Source Oxymask I&O (Last 24 Hrs): Intake and Output Totals x24h 09/29/18 09/30/18 10/01/18 23:59 23:59 23:59 Intake Total 5736.2 3948.667 1350 Output Total 1275 3870 4200 Balance 4461.2 78.667 -2850 General: Other (Lethargic.) HEENT: Mucous membr. moist/pink, Other (Wearing a ventimask.) Neck: Supple, No JVD Neuro: Non Focal, Other (Lethargic) Cardiovascular: Regular rate, No murmurs Respiratory: No respiratory distress, Breath sounds nml Abdomen: Soft Extremities: No edema - Results Results: Laboratory Results WBC 9.1 x10^3/uL (4.8-10.8) 10/01/18 05:44 RBC 3.23 10^6/uL (4.20-5.40) L 10/01/18 05:44 Hgb 10.9 g/dL (12.0-16.0) L 10/01/18 05:44 Hct 31.5 % (37.0-47.0) L 10/01/18 05:44 MCV 97.6 fL (81.0-99.0) 10/01/18 05:44 MCH 33.6 pg (27.0-31.0) H 10/01/18 05:44 MCHC 34.4 g/dL (32.0-36.0) 10/01/18 05:44 RDW 19.4 % (12.0-15.0) H 10/01/18 05:44 Plt Count 131 10^3/uL (130-450) 10/01/18 05:44 MPV 7.7 fL (7.9-10.8) L 10/01/18 05:44 Neut # (Auto) 5.9 10^3/uL (1.5-6.6) 10/01/18 05:44 Lymph # (Auto) 1.0 10^3/uL (1.5-3.5) L 10/01/18 05:44 [place] # (Auto) 2.2 10^3/uL (0.0-1.0) H 10/01/18 05:44 Eos # (Auto) 0.0 10^3/uL (0.0-0.7) 10/01/18 05:44 Baso # (Auto) 0.0 10^3/uL (0.0-0.1) 10/01/18 05:44 Absolute Nucleated RBC 0.01 x10^3/uL 10/01/18 05:44 Total Counted 100 09/27/18 18:14 Band Neuts % (Manual) Not Reportable 09/30/18 17:37 Abnorm Lymph % (Manual) Not Reportable 09/30/18 17:37 Nucleated RBC % 0.1 /100WBC 10/01/18 05:44 Neutrophils # (Manual) Not Reportable 09/30/18 17:37 Lymphocytes # (Manual) Not Reportable 09/30/18 17:37 Monocytes # (Manual) Not Reportable 09/30/18 17:37 Eosinophils # (Manual) Not Reportable 09/30/18 17:37 Basophils # (Manual) Not Reportable 09/30/18 17:37 Differential Comment MANUAL=AUTO DIFF 09/30/18 17:37 Manual Slide Review Indicated 09/30/18 17:37 WBC Morphology 1+ TOXIC GRANULATION (NORMAL) 09/30/18 17:37 Platelet Estimate DECREASED (<130,000) (NORMAL) 09/30/18 17:37 Platelet Morphology NORMAL APPEARANCE (NORMAL) 09/30/18 17:37 RBC Morph Micro Appear 1+ ANISOCYTOSIS (NORMAL) 1+ STOMATOCYTES (NORMAL) 09/27/18 18:14 RBC Morph Micro Appear 1+ ANISOCYTOSIS (NORMAL) 1+ POLYCHROMASIA (NORMAL) 1+ HYPOCHROMASIA (NORMAL) 1+ STOMATOCYTES (NORMAL) 09/30/18 17:37 RBC Morph Micro Appear 1+ ANISOCYTOSIS (NORMAL) 1+ POLYCHROMASIA (NORMAL) 1+ HYPOCHROMASIA (NORMAL) 1+ STOMATOCYTES (NORMAL) 09/30/18 17:37 RBC Morph Micro Appear 1+ ANISOCYTOSIS (NORMAL) 1+ POLYCHROMASIA (NORMAL) 1+ HYPOCHROMASIA (NORMAL) 1+ STOMATOCYTES (NORMAL) 09/30/18 17:37 RBC Morph Micro Appear 1+ ANISOCYTOSIS (NORMAL) 1+ POLYCHROMASIA (NORMAL) 1+ HYPOCHROMASIA (NORMAL) 1+ STOMATOCYTES (NORMAL) 09/30/18 17:37 PT 12.7 secs (9.9-12.6) H 09/27/18 18:15 INR 1.1 (0.8-1.2) 09/27/18 18:15 APTT 26.6 secs (24.9-33.3) 09/27/18 18:15 Bld Gas Analysis Time 1805 09/30/18 18:00 Sample Site LEFT RADIAL 09/30/18 18:00 ABG pH 7.47 (7.35-7.45) H 09/30/18 18:00 ABG pCO2 33 mmHg (34-45) L 09/30/18 18:00 ABG pO2 52 mmHg (80-100) L* 09/30/18 18:00 ABG HCO3 22.9 mmol/L (22.0-26.0) 09/30/18 18:00 ABG Total CO2 23.9 MMOL/L (21.0-29.0) 09/30/18 18:00 ABG O2 Saturation 90 % (94-98) L 09/30/18 18:00 ABG Oximetry Spot Check 92 % 09/30/18 18:00 ABG Base Excess -0.3 mmol/L (-2.0-3.0) 09/30/18 18:00 [place] Test POSITIVE 09/30/18 18:00 VBG pH 7.564 (7.31-7.41) H 10/01/18 05:44 Ionized Calcium 0.93 mmol/L (1.15-1.33) L 10/01/18 05:44 Respiration Rate 28 b/min 09/30/18 18:00 O2 Delivery Device OXYMASK 09/30/18 18:00 O2 Liters/Min 9.00 LPM 09/30/18 18:00 Sodium 137 mmol/L (135-145) 10/01/18 05:44 Potassium 3.0 mmol/L (3.5-5.0) L 10/01/18 05:44 Chloride 98 mmol/L (101-111) L 10/01/18 05:44 Carbon Dioxide 26 mmol/L (21-32) 10/01/18 05:44 Anion Gap 13.0 (6-13) 10/01/18 05:44 BUN < 5 mg/dL (6-20) L 10/01/18 05:44 Creatinine 0.7 mg/dL (0.4-1.0) 10/01/18 05:44 Estimated GFR (MDRD) 102 (>89) 10/01/18 05:44 Glucose 105 mg/dL (70-100) H 10/01/18 05:44 Glycated Hemoglobin 5.0 % (4.6-6.2) 09/29/18 06:10 Estim Average Glucose 97 (70-100) 09/29/18 06:10 Lactic Acid 0.7 mmol/L (0.5-2.2) 09/30/18 15:16 Calcium 7.5 mg/dL (8.5-10.3) L 10/01/18 05:44 Ionized Calcium YES 10/01/18 05:44 Phosphorus 2.2 mg/dL (2.5-4.6) L 10/01/18 05:44 Magnesium 1.5 mg/dL (1.7-2.8) L 10/01/18 05:44 Total Bilirubin 0.9 mg/dL (0.2-1.0) 10/01/18 05:44 AST 45 IU/L (10-42) H 10/01/18 05:44 ALT 39 IU/L (10-60) 10/01/18 05:44 Alkaline Phosphatase 77 IU/L (42-121) 10/01/18 05:44 Troponin I < 0.04 ng/mL (<0.49) 10/01/18 05:44 B-Natriuretic Peptide 652 pg/mL (5-100) H 09/30/18 17:37 Total Protein 5.5 g/dL (6.7-8.2) L 10/01/18 05:44 Albumin 2.5 g/dL (3.2-5.5) L 10/01/18 05:44 Globulin 3.0 g/dL (2.1-4.2) 10/01/18 05:44 Albumin/Globulin Ratio 0.8 (1.0-2.2) L 10/01/18 05:44 Triglycerides 223 mg/dL (-149) H 09/28/18 05:50 Cholesterol 97 mg/dL (-199) 09/28/18 05:50 LDL Cholesterol, Calc 34 mg/dL (-129) 09/28/18 05:50 VLDL Cholesterol 45 mg/dL 09/28/18 05:50 HDL Cholesterol 18 mg/dL (60-) L 09/28/18 05:50 LDL/HDL Ratio 1.9 (<4.4) 09/28/18 05:50 Cholesterol/HDL Ratio 5.4 (<4.4) 09/28/18 05:50 Lipase 68 U/L (22-51) H 09/30/18 05:49 Urine Color YELLOW 09/27/18 22:03 Urine Clarity HAZY (CLEAR) 09/27/18 22:03 Urine pH 5.5 PH (5.0-7.5) 09/27/18 22:03 Ur Specific [place] 1.025 (1.002-1.030) 09/27/18 22:03 Urine Protein 100 mg/dL (NEGATIVE) H 09/27/18 22:03 Urine Glucose (UA) 100 mg/dL (NEGATIVE) H 09/27/18 22:03 Urine Ketones NEGATIVE mg/dL (NEGATIVE) 09/27/18 22:03 Urine Occult Blood LARGE (NEGATIVE) H 09/27/18 22:03 Urine Nitrite NEGATIVE (NEGATIVE) 09/27/18 22:03 Urine Bilirubin NEGATIVE (NEGATIVE) 09/27/18 22:03 Urine Urobilinogen 0.2 (NORMAL) E.U./dL (NORMAL) 09/27/18 22:03 Ur Leukocyte Esterase NEGATIVE (NEGATIVE) 09/27/18 22:03 Urine RBC 6-10 /HPF (0-5) H 09/27/18 22:03 Urine WBC 11-25 /HPF (0-5) H 09/27/18 22:03 Ur Squamous Epith Cells MOD Squamous (<= Few) H 09/27/18 22:03 Amorphous Sediment Moderate /LPF 09/27/18 22:03 Urine Bacteria Few /HPF (None Seen) 09/27/18 22:03 Urine Casts 11-25 Granular Casts /LPF 09/27/18 22:03 Ur Microscopic Review INDICATED 09/27/18 22:03 Urine Culture Comments NOT INDICATED 09/27/18 22:03 Urine HCG, Qual NEGATIVE 09/27/18 22:03 Ethyl Alcohol < 5.0 mg/dL 09/27/18 18:15 Influenza A (Rapid) Negative (Negative) 09/30/18 17:25 Influenza B (Rapid) Negative (Negative) 09/30/18 17:25
[2018-10-01 14:04] LABS: CALCIUM 7.7 mg/dL (8.5-10.3); CREATININE 0.8 mg/dL (0.4-1.0)
[2018-10-01] MEDS: THIAMINE 100 MG TABLET PO SCH (14:15)
[2018-10-02] MEDS: SODIUM CHLORIDE FLUSH 0.9% 10 ML SYRINGE IVP SCH ×3 (00:02→16:23)
[2018-10-02] MEDS: ZOLPIDEM 5 MG TABLET PO PRN ×2 (00:08→23:11)
[2018-10-02] MEDS: PIPERACILLIN/TAZOBACTAM 3.375 GM in SODIUM CHLORIDE 0.9% MINIBAG 100 ML IV SCH ×4 (04:49→22:00)
[2018-10-02] MEDS: SODIUM CHLORIDE FLUSH 0.9% 10 ML SYRINGE IVP PRN ×4 (04:49→14:24)
[2018-10-02] MEDS: FUROSEMIDE 40 MG/4 ML VIAL IVP SCH ×2 (05:39→14:24)
[2018-10-02] MEDS: VANCOMYCIN INJ 1 GM in SODIUM CHLORIDE 0.9% 250 ML IV SCH ×2 (05:39→17:35)
[2018-10-02] MEDS: oxyCODONE 5 MG TABLET PO PRN ×5 (05:46→23:11)
[2018-10-02 05:51] LABS: BASOPHILS % (AUTO) 0.2 %; EOSINOPHILS # (AUTO) 0.1 10^3/uL (0.0-0.7); EOSINOPHILS % (AUTO) 0.5 %; HGB - HEMOGLOBIN 11.1 g/dL (12.0-16.0); LYMPHOCYTES # (AUTO) 1.4 10^3/uL (1.5-3.5); LYMPHOCYTES % (AUTO) 14.4 %; MEAN CORPUSCULAR HEMOGLOBIN 32.9 pg (27.0-31.0); MEAN CORPUSCULAR HGB CONC 33.5 g/dL (32.0-36.0); MEAN CORPUSCULAR VOLUME 98.1 fL (81.0-99.0); MEAN PLATELET VOLUME 7.5 fL (7.9-10.8); MONOCYTES # (AUTO) 1.6 10^3/uL (0.0-1.0); MONOCYTES % (AUTO) 15.5 %; NEUTROPHILS % (AUTO) 69.4 %; PLT - PLATELET COUNT 199 10^3/uL (130-450); RED BLOOD COUNT 3.38 10^6/uL (4.20-5.40); RED CELL DISTRIBUTION WIDTH 19.7 % (12.0-15.0); WHITE BLOOD COUNT 10.1 x10^3/uL (4.8-10.8)
[2018-10-02 06:05] LABS: ALBUMIN 2.4 g/dL (3.2-5.5); ALBUMIN/GLOBULIN RATIO 0.8 (1.0-2.2); ALKALINE PHOSPHATASE 83 IU/L (42-121); ALT ALANINE AMINOTRANSFERASE 32 IU/L (10-60); AST ASPARTATE AMINOTRANSFERASE 32 IU/L (10-42); BILIRUBIN,TOTAL 0.7 mg/dL (0.2-1.0); BUN - BLOOD UREA NITROGEN 10 mg/dL (6-20); CALCIUM 7.6 mg/dL (8.5-10.3); CARBON DIOXIDE - CO2 26 mmol/L (21-32); CHLORIDE 99 mmol/L (101-111); CREATININE 0.7 mg/dL (0.4-1.0); GFR - MDRD 102 (>89); GLUCOSE 93 mg/dL (70-100); MAGNESIUM 1.4 mg/dL (1.7-2.8); SODIUM 137 mmol/L (135-145); TOTAL PROTEIN 5.6 g/dL (6.7-8.2)
[2018-10-02 06:14] LABS: VBG PH 7.464 (7.31-7.41)
[2018-10-02] MEDS: HYDROmorphone 1 MG/ML CARPUJECT IVP PRN (06:45)
--- NOTE | 2018-10-02 07:30 | PROVIDER PROGRESS NOTE ---
Subjective - Prog Note Date Prog Note Date: 10/02/18 Prog Note Time: 14:43 - Subjective Pt reports feeling: Improved Subjective: This morning she received some Dilaudid before I examined her. She was very lethargic, slurred speech, could barely keep her eyes open. I have asked nursing to please withhold Dilaudid and less severe agonizing pain. Her discomfort is epigastric, and mid back. It is her mid back that hurts more than anything else. Nausea is better, abdominal pain is better. She is tolerating a full diet, normal diet well. No recurrence of abdominal pain. I asked her to get up and walk the hallways and she is been walking the hallways this afternoon. Oxygen started at 3 L in the substation operator hours, down to 1 L by this morning and she is now off oxygen this afternoon. Current Medications - Current Medications Current Medications: Active Medications Acetaminophen (Tylenol) 650 mg PO Q4HR PRN PRN Reason: Pain or Fever > 38C (100.4F) Last Admin: 10/02/18 10:36 Dose: 650 mg Albuterol/Ipratropium (Duoneb) 3 ml INH Q4HR PRN PRN Reason: Wheezing Diphenhydramine HCl (Benadryl Inj) 25 mg IVP Q6H PRN PRN Reason: Allergy Symptoms Docusate Sodium (Colace 250mg Capsule) 250 - 500 mg PO DAILY [facility] Last Admin: 10/02/18 08:26 Dose: 250 mg Furosemide (Lasix Inj 40 Mg Vial) 40 mg IVP BIDDIURETIC [facility] Last Admin: 10/02/18 14:24 Dose: 40 mg Hydromorphone HCl (Dilaudid Inj Carp) 1 mg IVP Q8H PRN PRN Reason: Pain 8 to 10 Last Admin: 10/02/18 06:45 Dose: 1 mg Piperacillin Sod/Tazobactam (Sod 3.375 gm/ Sodium Chloride) 100 mls @ 200 mls/hr IV Q6H [facility] Last Infusion: 10/02/18 11:40 Dose: Infused Vancomycin HCl 1 gm/ Sodium (Chloride) 250 mls @ 167 mls/hr IV Q12H [facility] Last Infusion: 10/02/18 09:44 Dose: Infused Lorazepam (Ativan) 0.5 mg PO Q2H PRN PRN Reason: Anxiety Lorazepam (Ativan Inj (Vial)) 1 mg IVP Q1HR PRN PRN Reason: Alcohol Withdrawal Magnesium Oxide (Mag Ox) 400 mg PO DAILYWM [facility] Last Admin: 10/02/18 08:27 Dose: 400 mg Ondansetron HCl (Zofran Inj) 4 mg IVP Q6HR PRN PRN Reason: Nausea / Vomiting Last Admin: 09/30/18 09:24 Dose: 4 mg Oxycodone HCl (Roxicodone) 5 mg PO Q4HR PRN PRN Reason: PAIN Last Admin: 10/02/18 14:24 Dose: 5 mg Polyethylene Glycol (Miralax) 17 gm PO DAILY [facility] Last Admin: 10/02/18 08:26 Dose: 17 gm Potassium Chloride (K-Dur) 40 meq PO DAILYWM [facility] Last Admin: 10/02/18 08:27 Dose: 40 meq Prochlorperazine Edisylate (Compazine Inj) 10 mg IVP Q6HR PRN PRN Reason: Nausea / Vomiting Saccharomyces Boulardii (Florastor) 250 mg PO BIDWM [facility] Last Admin: 10/02/18 08:27 Dose: 250 mg Senna (Senokot) 8.6 - 17.2 mg PO DAILY [facility] Last Admin: 10/02/18 08:27 Dose: 8.6 mg Sertraline HCl (Zoloft) 25 mg PO DAILY [facility] Last Admin: 10/02/18 08:27 Dose: 25 mg Sodium Chloride (Normal Saline Flush 0.9%) 10 ml IVP PRN PRN PRN Reason: NEEDED PER PROVIDER ORDERS Last Admin: 10/02/18 14:24 Dose: 10 ml Sodium Chloride (Normal Saline Flush 0.9%) 10 ml IVP 0100,0900,1700 [facility] Last Admin: 10/02/18 08:29 Dose: Not Given Thiamine HCl (Vitamin B-1) 100 mg PO DAILY [facility] Last Admin: 10/02/18 08:27 Dose: 100 mg Zolpidem Tartrate (Ambien) 5 mg PO QPM PRN PRN Reason: Insomnia Last Admin: 10/02/18 00:08 Dose: 5 mg No Known Home Medications 09/28/18 Objective - Vital Signs/Intake & Output Reviewed Vital Signs: Yes Vital Signs: Vital Signs x48h Temp Pulse Resp BP Pulse Ox 10/02/18 00:00 37.2 C 108 H 16 128/76 95 Intake & Output: Intake & Output 09/29/18 09/30/18 10/01/18 10/02/18 23:59 23:59 23:59 23:59 Intake Total 5736.2 3948.667 3087 100 Output Total 1275 3870 5970 1050 Balance 4461.2 78.156 -6083 -138 - Objective General Appearance: positive: No acute distress, Alert Eyes Bilateral: positive: PERRL ENT: positive: No signs of dehydration Neck: positive: Trachea midline. negative: Stiff neck, Carotid bruit Respiratory: positive: Chest non-tender. negative: Wheezes, Rales, Rhonchi Cardiovascular: positive: Regular rate & rhythm. negative: Systolic murmur, Gallop/S4 Abdomen: positive: No organomegaly, Nml bowel sounds, No distention, Tenderness (Diffusely, and mild. In all quadrants, but centered more around left mid abdomen.). negative: Guarding, Rebound Skin: positive: Warm, Dry Extremities: positive: Full ROM, No pedal edema Neurologic/Psychiatric: positive: Oriented x3, CN's nml (2-12), Motor nml, Slurred/abnml speech (this am has resolved.) - Lab Results Fish Bones: 10/02/18 05:20 10/02/18 05:20 Other Labs: Lab Results x24hrs 10/02/18 10/02/18 10/02/18 Range/Units 05:20 05:20 05:20 WBC 10.1 (4.8-10.8) x10^3/uL RBC 3.38 L (4.20-5.40) 10^6/uL Hgb 11.1 L (12.0-16.0) g/dL Hct 33.2 L (37.0-47.0) % MCV 98.1 (81.0-99.0) fL MCH 32.9 H (27.0-31.0) pg MCHC 33.5 (32.0-36.0) g/dL RDW 19.7 H (12.0-15.0) % Plt Count 199 (130-450) 10^3/uL MPV 7.5 L (7.9-10.8) fL Neut # (Auto) 7.0 H (1.5-6.6) 10^3/uL Lymph # (Auto) 1.4 L (1.5-3.5) 10^3/uL [place] # (Auto) 1.6 H (0.0-1.0) 10^3/uL Eos # (Auto) 0.1 (0.0-0.7) 10^3/uL Baso # (Auto) 0.0 (0.0-0.1) 10^3/uL Absolute Nucleated RBC 0.00 x10^3/uL Nucleated RBC % 0.0 /100WBC VBG pH 7.464 H (7.31-7.41) Ionized Calcium 1.03 L YES (1.15-1.33) mmol/L Sodium 137 (135-145) mmol/L Potassium 3.4 L (3.5-5.0) mmol/L Chloride 99 L (101-111) mmol/L Carbon Dioxide 26 (21-32) mmol/L Anion Gap 12.0 (6-13) BUN 10 (6-20) mg/dL Creatinine 0.7 (0.4-1.0) mg/dL Estimated GFR (MDRD) 102 (>89) Glucose 93 (70-100) mg/dL Calcium 7.6 L (8.5-10.3) mg/dL Phosphorus (2.5-4.6) mg/dL Magnesium (1.7-2.8) mg/dL Total Bilirubin 0.7 (0.2-1.0) mg/dL AST 32 (10-42) IU/L ALT 32 (10-60) IU/L Alkaline Phosphatase 83 (42-121) IU/L Troponin I (<0.49) ng/mL Total Protein 5.6 L (6.7-8.2) g/dL Albumin 2.4 L (3.2-5.5) g/dL Globulin 3.2 (2.1-4.2) g/dL Albumin/Globulin Ratio 0.8 L (1.0-2.2) 10/02/18 10/01/18 10/01/18 Range/Units 05:20 13:45 05:44 WBC (4.8-10.8) x10^3/uL RBC (4.20-5.40) 10^6/uL Hgb (12.0-16.0) g/dL Hct (37.0-47.0) % MCV (81.0-99.0) fL MCH (27.0-31.0) pg MCHC (32.0-36.0) g/dL RDW (12.0-15.0) % Plt Count (130-450) 10^3/uL MPV (7.9-10.8) fL Neut # (Auto) (1.5-6.6) 10^3/uL Lymph # (Auto) (1.5-3.5) 10^3/uL [place] # (Auto) (0.0-1.0) 10^3/uL Eos # (Auto) (0.0-0.7) 10^3/uL Baso # (Auto) (0.0-0.1) 10^3/uL Absolute Nucleated RBC x10^3/uL Nucleated RBC % /100WBC VBG pH (7.31-7.41) Ionized Calcium (1.15-1.33) mmol/L Sodium 135 (135-145) mmol/L Potassium 3.4 L (3.5-5.0) mmol/L Chloride 96 L (101-111) mmol/L Carbon Dioxide 29 (21-32) mmol/L Anion Gap 10.0 (6-13) BUN 6 (6-20) mg/dL Creatinine 0.8 (0.4-1.0) mg/dL Estimated GFR (MDRD) 87 L (>89) Glucose 106 H (70-100) mg/dL Calcium 7.7 L (8.5-10.3) mg/dL Phosphorus 3.0 (2.5-4.6) mg/dL Magnesium 1.4 L (1.7-2.8) mg/dL Total Bilirubin (0.2-1.0) mg/dL AST (10-42) IU/L ALT (10-60) IU/L Alkaline Phosphatase (42-121) IU/L Troponin I < 0.04 (<0.49) ng/mL Total Protein (6.7-8.2) g/dL Albumin (3.2-5.5) g/dL Globulin (2.1-4.2) g/dL Albumin/Globulin Ratio (1.0-2.2) ABX Reporting Has patient been on IV antibiotics over the past 48 hours?: Yes Assessment/Plan - Problem List (1) ARDS (adult respiratory distress syndrome) Impression: The CTA done 09/30 evening was consistent with pulmonary edema with pleural effusion vs ARDS. Troponin was not detectable. The Hospitalist conferred with the Prov. [employer] Consultant 09/30, that her ARDS is often seen associated with pancreatitis. And they discussed management, which was started: Lasix iv bid. With that, her oxygenation and air hunger improved. Follow CXR for clearing done this am and her bibasilar opacities have improved from previous CXR Her oxygen requirement has also decreased. She is now down to room air by this afternoon. Continue diuresis. Obtain an Echo to rule out cardiomyopathy, possibly from potential drug abuse or from her alcoholism. Ordered and pending. (2) CAP (community acquired pneumonia) Assessment/Plan: Today is day #3 for Zosyn and vancomycin. Monitoring CXR and improved (3) Acute alcoholic pancreatitis Qualifiers: Acute pancreatitis complication: no infection or necrosis Qualified Code(s): K85.20 - Alcohol induced acute pancreatitis without necrosis or infection Assessment/Plan: Resolved. The Hospitalist conferred with the Prov. [employer] Consultant 09/30, that her ARDS is often seen associated with pancreatitis. Stop IV Dilaudid. Changed over to oral medication. (4) Alcoholism Assessment/Plan: Pt is S/P alcohol withdrawal. She has been weaned off Librium and using no Ativan any more. Start daily Thiamine replacement. Social work has met with the patient, and has given her a list of support services for alcoholism. I have mentioned inpatient rehab when she gets out of here, and so far she is not interested in it. (5) Hypomagnesemia Assessment/Plan: Replace and follow daily labs. (6) Hypokalemia Assessment/Plan: Still present daily. Replace K and follow daily or bid while on iv diuretic. (7) Anemia Assessment/Plan: Possibly hemodilutional. No evidence of blood loss anemia during this admission. Possibly from alcohol bone marrow suppression. She was to have Iron panel and stool guaic, also B12 and Folate levels and replace if low. Not ordered, will order this morning.
[2018-10-02 07:49] LABS: MEAN RETIC VALUE 110.4; RED BLOOD COUNT 3.32 10^6/uL (4.20-5.40)
[2018-10-02] MEDS ORDERED: POTASSIUM CHLORIDE 20 MEQ TABLET PO SCH (08:00)
[2018-10-02 08:23] LABS: FERRITIN 945.2 ng/mL (11.0-306.8)
[2018-10-02] MEDS: DOCUSATE SODIUM 250 MG CAPSULE PO SCH (08:26)
[2018-10-02] MEDS: POLYETHYLENE GLYCOL 3350 17 GM PACKET PO SCH (08:26)
[2018-10-02] MEDS: POTASSIUM CHLORIDE 20 MEQ TABLET PO SCH (08:27)
[2018-10-02] MEDS: SERTRALINE 25 MG TABLET PO SCH (08:27)
[2018-10-02] MEDS: SENNA 8.6 MG TABLET PO SCH (08:27)
[2018-10-02] MEDS: SACCHAROMYCES BOULARDII 250 MG CAPSULE PO SCH ×2 (08:27→17:33)
[2018-10-02] MEDS: THIAMINE 100 MG TABLET PO SCH (08:27)
[2018-10-02] MEDS: MAGNESIUM OXIDE 400 MG TABLET PO SCH (08:27)
[2018-10-02 08:39] LABS: % IRON SATURATION 7 % (20-50); IRON 8 ug/dL (28-170); TOTAL IRON BINDING CAPACITY 119 ug/dL (250-450); TRANSFERRIN 85 mg/dL (192-382)
--- NOTE | 2018-10-02 09:11 | XRAY Report ---
Reason: PNA and ARDS Procedure Date: 10/02/2018 Accession Number: [id number] / [id number] Procedure: XR - Chest 1 View X-Ray CPT Code: 70936 FULL RESULT: EXAM: CHEST RADIOGRAPHY EXAM DATE: 10/02/2018 08:50 AM. CLINICAL HISTORY: PNA and ARDS. COMPARISON: CHEST 1 VIEW 09/29/2018 2:22 PM. TECHNIQUE: 1 view. FINDINGS: Lungs/Pleura: Lung volumes are low. Improved bibasilar opacities. Small left pleural effusion. No vascular congestion. No pneumothorax. Mediastinum: Heart size and mediastinal contour are stable. Other: None. IMPRESSION: 1. Improved bibasilar opacities. RADIA
[2018-10-02] MEDS: ACETAMINOPHEN 325 MG TABLET PO PRN (10:36)
[2018-10-02] MEDS ORDERED: POTASSIUM CHLORIDE 20 MEQ TABLET PO ONE (12:00)
[2018-10-02 12:27] LABS: HEPATITIS A IGM NON-REACTIVE (NON-REACTIVE); HEPATITIS B CORE ANTIBODY IGM NON-REACTIVE (NON-REACTIVE); HEPATITIS B SURFACE ANTIGEN NON-REACTIVE (NON-REACTIVE); HEPATITIS C ANTIBODY NON-REACTIVE (NON-REACTIVE)
[2018-10-02] MEDS: CALCIUM CARBONATE CHEW 500 MG TABLET PO PRN ×3 (17:33→22:00)
[2018-10-03] MEDS: SODIUM CHLORIDE FLUSH 0.9% 10 ML SYRINGE IVP SCH (00:34)
[2018-10-03] MEDS: oxyCODONE 5 MG TABLET PO PRN ×2 (04:30→08:39)
[2018-10-03] MEDS: PIPERACILLIN/TAZOBACTAM 3.375 GM in SODIUM CHLORIDE 0.9% MINIBAG 100 ML IV SCH (04:31)
[2018-10-03] MEDS: SODIUM CHLORIDE FLUSH 0.9% 10 ML SYRINGE IVP PRN (04:32)
[2018-10-03 05:26] LABS: BASOPHILS # (AUTO) 0.1 10^3/uL (0.0-0.1); BASOPHILS % (AUTO) 0.5 %; EOSINOPHILS % (AUTO) 0.3 %; HGB - HEMOGLOBIN 11.4 g/dL (12.0-16.0); LYMPHOCYTES # (AUTO) 1.7 10^3/uL (1.5-3.5); LYMPHOCYTES % (AUTO) 12.9 %; MEAN CORPUSCULAR HEMOGLOBIN 32.1 pg (27.0-31.0); MEAN CORPUSCULAR VOLUME 97.2 fL (81.0-99.0); MEAN PLATELET VOLUME 7.6 fL (7.9-10.8); MONOCYTES # (AUTO) 1.4 10^3/uL (0.0-1.0); MONOCYTES % (AUTO) 11.1 %; NEUTROPHILS # (AUTO) 9.6 10^3/uL (1.5-6.6); NEUTROPHILS % (AUTO) 75.2 %; PLT - PLATELET COUNT 258 10^3/uL (130-450); RED BLOOD COUNT 3.54 10^6/uL (4.20-5.40); RED CELL DISTRIBUTION WIDTH 19.7 % (12.0-15.0); WHITE BLOOD COUNT 12.8 x10^3/uL (4.8-10.8)
[2018-10-03 05:31] LABS: MAGNESIUM 1.3 mg/dL (1.7-2.8); PHOSPHORUS 3.4 mg/dL (2.5-4.6)
[2018-10-03 05:32] LABS: ALBUMIN 2.5 g/dL (3.2-5.5); ALBUMIN/GLOBULIN RATIO 0.7 (1.0-2.2); ALKALINE PHOSPHATASE 113 IU/L (42-121); ALT ALANINE AMINOTRANSFERASE 28 IU/L (10-60); AST ASPARTATE AMINOTRANSFERASE 30 IU/L (10-42); BUN - BLOOD UREA NITROGEN 9 mg/dL (6-20); CALCIUM 8.2 mg/dL (8.5-10.3); CARBON DIOXIDE - CO2 24 mmol/L (21-32); CHLORIDE 101 mmol/L (101-111); CREATININE 0.6 mg/dL (0.4-1.0); GFR - MDRD 122 (>89); GLUCOSE 99 mg/dL (70-100); SODIUM 135 mmol/L (135-145)
[2018-10-03 05:42] LABS: VBG PH 7.462 (7.31-7.41)
[2018-10-03] MEDS: FUROSEMIDE 40 MG/4 ML VIAL IVP SCH (05:42)
[2018-10-03] MEDS: VANCOMYCIN INJ 1 GM in SODIUM CHLORIDE 0.9% 250 ML IV SCH (05:43)
[2018-10-03] MEDS: ACETAMINOPHEN 325 MG TABLET PO PRN (07:14)
[2018-10-03] MEDS ORDERED: MAGNESIUM OXIDE 400 MG TABLET PO SCH (08:00)
[2018-10-03 08:09] VITALS: BP 110/76
[2018-10-03] MEDS: DOCUSATE SODIUM 250 MG CAPSULE PO SCH (08:25)
[2018-10-03] MEDS: POTASSIUM CHLORIDE 20 MEQ TABLET PO SCH (08:26)
[2018-10-03] MEDS: THIAMINE 100 MG TABLET PO SCH (08:26)
[2018-10-03] MEDS: SERTRALINE 25 MG TABLET PO SCH (08:26)
[2018-10-03] MEDS: SACCHAROMYCES BOULARDII 250 MG CAPSULE PO SCH (08:26)
[2018-10-03] MEDS: SENNA 8.6 MG TABLET PO SCH (08:26)
[2018-10-03] MEDS: POLYETHYLENE GLYCOL 3350 17 GM PACKET PO SCH (08:27)
--- NOTE | 2018-10-03 09:26 | Discharge Plan ---
Discharge Plan Disposition: 01 Home, Self Care Condition: Good Prescriptions: Levofloxacin [Levaquin] 500 mg PO DAILY #3 tablet oxyCODONE/ACET 5/325 [Percocet 5 mg/325 mg] 1 each PO Q4-6H #30 tablet Diet: Cardiac (low fat for now until pancreas is stable) Activity Restrictions: Activity as Tolerated Additional Instructions or Follow Up instructions: You were admitted to the hospital because of abdominal pain. We found her to have alcoholic pancreatitis. Complicating that was a pneumonia/inflammatory lung problem. This is a very serious illness and you were gravely ill. We strongly recommend you refrain from any alcohol use whatsoever. Please join Alcoholics Anonymous or another support group. Consider therapy for anxiety or depression. We would also recommend considering inpatient rehab. You are being discharged on a limited dose of opiates for back pain. You are also being discharged with 3 more days of antibiotics. At discharge you had a slightly elevated white cell count. However you did not have a fever, fast heart rate, and were tolerating a diet and not needing oxygen. Please keep an eye on yourself with regards to fevers, chills, cough, productive phlegm, burning with urination, etc. If any of those are present please report this to your primary care provider or return to the emergency room. No Smoking: If you smoke, Please STOP! Call for help. Follow-up with: Dorothea Colón PA-C [Primary Care Provider] -
--- NOTE | 2018-10-04 01:29 | DISCHARGE SUMMARY ---
Physician: Bernie Newell MD DATE OF ADMISSION: 09/27/2018 DATE OF DISCHARGE: 10/03/2018 DISCHARGE DIAGNOSES 1. Acute alcoholic pancreatitis. 2. Acute respiratory failure with hypoxia. 3. Acute kidney injury. 4. Severe electrolyte disorder with hypokalemia, hyponatremia, hypocalcemia, and hypophosphatemia. 5. Alcoholic hepatitis. 6. Alcohol abuse. 7. Alcohol withdrawal. 8. Thrombocytopenia. 9. Depression. DISCHARGE MEDICATIONS 1. Levaquin 500 mg p.o. daily, #3. 2. Percocet 5/325 one tablet every 4-6 hours, #30, no refills. PRINCIPAL PROCEDURES 1. Abdominal ultrasound. Negative right upper quadrant ultrasound. Pancreas not well seen. Comm on bile duct 4 mm. No ductal dilatation. No stones or gallbladder wall thickening. 2. Chest x-ray on 09/29/2018 and 10/02/2018. On 09/29/2018, a small left pleural effusion with le ft basilar airspace disease suggestive of pneumonia. The 10/02/2018 chest x-ray showed improved biba silar opacities and improved pleural effusion. 3. Chest thorax CT angiogram. Negative for pulmonary emboli, moderate bilateral pleural effusions , bilateral lower lobe atelectasis and consolidation with airspace disease and consolidation both upp er lobes. Upper cuts of abdomen showed decreased attenuation of the liver consistent with steatosis. Extensive fluid and edema around the pancreas and in the left upper quadrant suggestive of pancreat itis and concerning for necrosis, but incompletely assessed on exam. 4. Blood cultures negative after two days. 5. Echocardiogram with left ventricular systolic function normal and ejection fraction of 70-75%. No valvular heart disease. No pulmonary hypertension. HOSPITAL COURSE: She is a healthy 23-year-old female who developed abdominal pain the day before adm ission and had progressively gotten worse. Located in the epigastric region or central abdomen, cons tant and sharp, not crampy. Worsened by any p.o. intake. She is now taking only clear liquids and o nly water. In the last two days, she has not eaten very much. No bowel movement for two days. She denied fever, had one episode of emesis. She has never had abdominal pain like this before. On soci al history, she is drinking several glasses of wine per day and has done so for several months or yea rs. Utilizes this is a self-medicating treatment for depression. She has been diagnosed as depressi ve in the past and was to have taken Prozac, but she did not tolerate it. She is supposed to be on s ertraline, but is not taking it. In the emergency room, temperature was 36, pulse 75, respirations 16, blood pressure 116/60, 99% O2 s aturation. She was in no acute distress, tenderness in the epigastric region and left upper quadrant . No rebound or guarding. Labs and abdominal CT in the emergency room showed her to have an elevate d lipase of over 700. AST and ALT over 100. Sodium was 126, and overall she was felt to have acute pancreatitis. The patient was initially admitted to the floor and treated empirically as pancreatitis with fluid re suscitation and correction of all of her electrolyte abnormalities that included hyponatremia, hypoka lemia, hypocalcemia and hypophosphatemia. She had acute kidney injury with a creatinine of 3.8 on ad mission. By the time of discharge, she was 0.6. The patient unfortunately then developed severe shortness of breath, hypoxia and had acute respirator y failure with hypoxia. CT angiogram was negative for pulmonary emboli. Chest x-ray showed her to h ave worsening infiltrates and she was felt to have community-acquired pneumonia, for which she was or iginally treated with Rocephin and azithromycin. Those were changed to Zosyn and vancomycin when she became sicker. CT angiogram showed moderate bilateral pleural effusions and consolidation of both l obes, upper and lower. We obtained a consult with waiter/waitress first class at [facility] to make sure she did not need to be transferred to their facility. They felt that she could have ARDS on top of this in association with pancreatitis. They recommended diuresis, did not recommend continuation of ster oids that we had already started, and to continue antibiotics. The patient gradually improved from t his over time and was able to be transitioned to medical/surgical from ICU. She did have mild alcoho l withdrawal on [facility] protocol for her alcohol abuse. Thrombocytopenia from alcohol abuse was also no wilfredo. She was not felt to have true cirrhosis, but ultrasound showed steatosis. Platelets were 122 o n admission, bottomed out at 62,000. At the time of discharge, she was 258. Depression was addressed. She acknowledged the alcohol abuse, but was reluctant to consider therapy or treatment. Nevertheless, she saw social work and she was given a name and list of support service s for her. She was strongly encouraged to consider inpatient rehab and mental health counseling. Throughout her stay, her white blood count was normal. It did not go up until the day of discharge a t 12.8. She remained afebrile, was tolerating a full and normal diet, ambulating in the hallways, no longer needing oxygen. I did discuss with her mother, who is a nurse, that she could stay another day to watch that white ce ll count or did she feel comfortable enough taking her daughter home and checking her temperature at home and watching her status. They both felt that she could go home, watch her status from there and return if needed. Hopefully, she will be able to find outpatient resources and support for her depression and alcohol a buse. She has been told that she could have from this episode and that any further drinking ja l only exacerbate any chronic pancreatitis she may have. She continues to have mild epigastric pain that radiates straight through to her back. She is discharged on a few doses of Percocet for that. She is asked to please follow through with a low-fat diet. Again, no alcohol use at all. PHYSICAL EXAMINATION VITAL SIGNS: Temperature 36.4. Pulse of 98-110. Blood pressure 110/76. She is 97% on room air. R espirations 20 and unlabored. GENERAL: Slender, pale white female who looks well nourished, well developed. Able to ambulate in t he hallways without assistance or ataxia. HEENT: Pupils are reactive. Mouth has pink and moist oral mucosa. NECK: Supple. LUNGS: Still has diminished breath sounds at the bases. Occasional crackle, but would clear with a deep cough, but no respiratory distress. PMI is normally placed. Regular rate and rhythm. ABDOMEN: Very vague minimal tenderness in the epigastrium. No rebound, no guarding. No discolorati on of the skin of her flanks. Abdomen has hypoactive bowel sounds. Diffuse firmness of musculature, but no rebound or guarding. EXTREMITIES: Without edema. No petechia. Greater than 30 minutes was spent in coordinating discharge. The patient is asked to strongly follow through with getting help for mental health issues and alcohol abuse and to please establish herself with a primary care provider. TD: 10/03/2018 15:17
== END 2018-10-03 10:30 | disposition home or self-care (01) | DRG 438 ==
LOC: ED 17:54 → MS2 21:46
PROVIDERS: ADMIT Family Medicine Sports Medicine; ATTEND Specialist
DX: K85.20 Alcohol induced acute pancreatitis without necrosis or infection (principal); J80 Acute respiratory distress syndrome; J18.9 Pneumonia, unspecified organism; N17.9 Acute kidney failure, unspecified; E87.1 Hypo-osmolality and hyponatremia; F10.239 Alcohol dependence with withdrawal, unspecified; E87.6 Hypokalemia; E83.51 Hypocalcemia; E83.39 Other disorders of phosphorus metabolism; K70.10 Alcoholic hepatitis without ascites; D69.6 Thrombocytopenia, unspecified; F32.9 Major depressive disorder, single episode, unspecified; F17.200 Nicotine dependence, unspecified, uncomplicated
CPT/HCPCS: 36415; 36600; 71045; 71275; 76705; 80048; 80053; 80061; 80074; 80320; 81001; 81003; 81025; 81256; 82330; 82607; 82728; 82803; 83036; 83540; 83605; 83615; 83690; 83721; 83735; 83880; 84100; 84466; 84484; 85025; 85027; 85044; 85610; 85730; 87040; 87086; 87275; 87276; 93306; 94640; 96361; 96374; 99284; 99285

== ENCOUNTER 2018-10-16 08:00 | Outpatient (CLI) | payer BC, OTHER ==
[2018-10-16 12:22] LABS: BASOPHILS # (AUTO) 0.1 10^3/uL (0.0-0.1); BASOPHILS % (AUTO) 0.6 %; EOSINOPHILS # (AUTO) 0.2 10^3/uL (0.0-0.7); EOSINOPHILS % (AUTO) 1.9 %; HGB - HEMOGLOBIN 11.3 g/dL (12.0-16.0); LYMPHOCYTES # (AUTO) 1.9 10^3/uL (1.5-3.5); LYMPHOCYTES % (AUTO) 23.7 %; MEAN CORPUSCULAR HEMOGLOBIN 32.7 pg (27.0-31.0); MEAN CORPUSCULAR HGB CONC 34.3 g/dL (32.0-36.0); MEAN CORPUSCULAR VOLUME 95.4 fL (81.0-99.0); MONOCYTES # (AUTO) 0.7 10^3/uL (0.0-1.0); MONOCYTES % (AUTO) 8.4 %; NEUTROPHILS # (AUTO) 5.2 10^3/uL (1.5-6.6); NEUTROPHILS % (AUTO) 65.4 %; PLT - PLATELET COUNT 731 10^3/uL (130-450); RED BLOOD COUNT 3.46 10^6/uL (4.20-5.40); RED CELL DISTRIBUTION WIDTH 19.5 % (12.0-15.0)
[2018-10-16 13:08] LABS: ALBUMIN 4.3 g/dL (3.2-5.5); ALKALINE PHOSPHATASE 87 IU/L (42-121); ALT ALANINE AMINOTRANSFERASE 28 IU/L (10-60); AMYLASE 35 U/L (28-100); AST ASPARTATE AMINOTRANSFERASE 31 IU/L (10-42); BILIRUBIN,TOTAL < 0.2 mg/dL (0.2-1.0); BUN - BLOOD UREA NITROGEN 14 mg/dL (6-20); CALCIUM 9.5 mg/dL (8.5-10.3); CARBON DIOXIDE - CO2 25 mmol/L (21-32); CHLORIDE 101 mmol/L (101-111); CREATININE 0.6 mg/dL (0.4-1.0); GFR - MDRD 122 (>89); GLUCOSE 89 mg/dL (70-100); LIPASE 48 U/L (22-51); PHOSPHORUS 4.7 mg/dL (2.5-4.6); SODIUM 135 mmol/L (135-145); TOTAL PROTEIN 8.4 g/dL (6.7-8.2)
== END 2018-10-16 23:59 | disposition home or self-care (01) ==
LOC: LAB.WCP 08:00
PROVIDERS: ATTEND Family Medicine
DX: E87.8 Other disorders of electrolyte and fluid balance, not elsewhere classified (principal); K85.20 Alcohol induced acute pancreatitis without necrosis or infection
CPT/HCPCS: 36415; 80053; 82150; 83690; 83735; 84100; 85025

== ENCOUNTER 2019-09-22 08:50 | Outpatient (CLI) | payer BC, MEDICAID ==
[2019-09-22 13:12] LABS: BASOPHILS % (AUTO) 0.8 %; EOSINOPHILS % (AUTO) 0.6 %; HGB - HEMOGLOBIN 10.8 g/dL (12.0-16.0); LYMPHOCYTES # (AUTO) 1.3 10^3/uL (1.5-3.5); MEAN CORPUSCULAR HEMOGLOBIN 37.4 pg (27.0-31.0); MEAN CORPUSCULAR HGB CONC 34.2 g/dL (32.0-36.0); MEAN CORPUSCULAR VOLUME 109.3 fL (81.0-99.0); MEAN PLATELET VOLUME 10.8 fL (7.9-10.8); MONOCYTES # (AUTO) 0.5 10^3/uL (0.0-1.0); MONOCYTES % (AUTO) 9.8 %; NEUTROPHILS # (AUTO) 3.4 10^3/uL (1.5-6.6); NEUTROPHILS % (AUTO) 63.7 %; PLT - PLATELET COUNT 169 10^3/uL (130-450); RED BLOOD COUNT 2.89 10^6/uL (4.20-5.40); RED CELL DISTRIBUTION WIDTH 21.1 % (12.0-15.0); WHITE BLOOD COUNT 5.3 x10^3/uL (4.8-10.8)
[2019-09-22 13:41] LABS: ALBUMIN 2.8 g/dL (3.2-5.5); ALBUMIN/GLOBULIN RATIO 0.8 (1.0-2.2); ALKALINE PHOSPHATASE 287 IU/L (42-121); ALT ALANINE AMINOTRANSFERASE 134 IU/L (10-60); AMYLASE 46 U/L (28-100); AST ASPARTATE AMINOTRANSFERASE 496 IU/L (10-42); BILIRUBIN,DIRECT 4.3 mg/dL (0.1-0.5); BILIRUBIN,TOTAL 7.6 mg/dL (0.2-1.0); BUN - BLOOD UREA NITROGEN 5 mg/dL (6-20); CALCIUM 8.2 mg/dL (8.5-10.3); CARBON DIOXIDE - CO2 25 mmol/L (21-32); CHLORIDE 95 mmol/L (101-111); CHOL/HDL RATIO 61.7 (<4.4); CHOLESTEROL 432 mg/dL; CREATININE 0.5 mg/dL (0.4-1.0); GFR - MDRD 149 (>89); GLUCOSE 158 mg/dL (70-100); HDL CHOLESTEROL 7 mg/dL; LIPASE 48 U/L (22-51); SODIUM 133 mmol/L (135-145); TOTAL PROTEIN 6.3 g/dL (6.7-8.2)
[2019-09-22 14:15] LABS: LDL CHOLESTEROL,DIRECT 266 mg/dL
== END 2019-09-22 23:59 | disposition home or self-care (01) ==
LOC: LAB.N 08:50
PROVIDERS: ATTEND Nurse Practitioner Gerontology
DX: Z00.00 Encounter for general adult medical examination without abnormal findings (principal); F10.20 Alcohol dependence, uncomplicated
CPT/HCPCS: 36415; 80053; 80061; 82150; 82248; 83690; 83721; 84443; 85025

== ENCOUNTER 2019-09-28 11:13 | Outpatient (CLI) | payer MEDICAID ==
--- NOTE | 2019-09-28 12:34 | Ultrasound Report ---
Reason: JAUNDICE, HEPATOMEGALY, ALCOHOLISM Procedure Date: 09/28/2019 Accession Number: [id number] / [id number] Procedure: US - Abdomen Complete CPT Code: Addended Final Report FULL RESULT: EXAM: ABDOMEN ULTRASOUND EXAM DATE: 09/28/2019 12:08 PM. CLINICAL HISTORY: Jaundice, hepatomegaly, alcoholism. COMPARISON: 10/02/2018 3:41 PM. ABDOMEN LIMITED 09/27/2018 8:07 PM. TECHNIQUE: Real-time scanning was performed with static images obtained. FINDINGS: Liver: Liver parenchyma is heterogeneous and moderately hyperechoic. No discrete liver masses or intrahepatic bile duct dilation. However, evaluation for masses is limited secondary to the echogenicity. Right liver [id number] cm. Main portal vein flow: Hepatopetal. Gallbladder: Sludge. Mild gallbladder wall thickening measuring up to 5 mm. No pericholecystic fluid. Negative sonographic Lees sign. Biliary System: Common bile duct measures 6 mm. No intrahepatic or extrahepatic ductal dilatation. Pancreas: Limited visualization due to echogenic fatty liver and bowel gas. Given limitations, no focal abnormality identified. Kidneys: Right: 11.3 cm longitudinally. Normal. No contour-deforming mass, stones, or hydronephrosis. Left: 11.1 cm longitudinally. Normal. No contour-deforming mass, stones, or hydronephrosis. Lobular contour to the inferior left kidney noted. Spleen: 13.3 x 3.2 x 13.4 cm. Elongated with a volume of 298 cc. No mass. Aorta and Inferior Vena Cava: No abdominal aortic aneurysm. Mid and distal aorta are not well seen due to overlying bowel gas. Other: Limitations related to enlarged fatty liver and bowel gas. IMPRESSION: 1. Enlarged echogenic fatty liver. No mass or intrahepatic bile duct dilation. 2. Mild gallbladder wall thickening. Gallbladder sludge. No gallstones identified. Gallbladder wall thickening may be due to underlying liver dysfunction. No sonographic Lees sign to suggest acute cholecystitis. Normal common bile duct. 3. Limited visualization of the pancreas. 4. Study limited by bowel gas. 5. Prominent spleen measuring 13.3 cm in length and 298 cc. RADIA The call report notification system was initiated by Dr. Argenis Pappas at 12:33 PM on 09/28/2019. ADDENDUM: 09/28/19 13:05 The above call report findings were discussed with Dr Benavides by Dr. Argenis Pappas at 01:05 PM on 09/28/2019.
== END 2019-09-28 11:14 | disposition home or self-care (01) ==
LOC: DI 11:13
PROVIDERS: ATTEND Nurse Practitioner Gerontology
DX: K76.0 Fatty (change of) liver, not elsewhere classified (principal); K82.8 Other specified diseases of gallbladder; R16.1 Splenomegaly, not elsewhere classified; F10.20 Alcohol dependence, uncomplicated
CPT/HCPCS: 76700

== ENCOUNTER 2019-10-24 08:00 | Outpatient (CLI) | payer MEDICAID ==
[2019-10-24 19:43] LABS: ALBUMIN 4.9 g/dL (3.2-5.5); ALBUMIN/GLOBULIN RATIO 1.3 (1.0-2.2); ALKALINE PHOSPHATASE 101 IU/L (42-121); ALT ALANINE AMINOTRANSFERASE 44 IU/L (10-60); AST ASPARTATE AMINOTRANSFERASE 110 IU/L (10-42); BUN - BLOOD UREA NITROGEN < 5 mg/dL (6-20); CARBON DIOXIDE - CO2 23 mmol/L (21-32); CHLORIDE 102 mmol/L (101-111); CREATININE 0.5 mg/dL (0.4-1.0); GFR - MDRD 149 (>89); GLUCOSE 150 mg/dL (70-100); SODIUM 137 mmol/L (135-145); TOTAL PROTEIN 8.8 g/dL (6.7-8.2)
[2019-10-24 19:58] LABS: HEMOGLOBIN A1C 0.29 g/dL; HEMOGLOBIN A1C % 4.2 % (4.6-6.2)
== END 2019-10-24 23:59 | disposition home or self-care (01) ==
LOC: LAB.N 08:00
PROVIDERS: ATTEND Nurse Practitioner Gerontology
DX: R17 Unspecified jaundice (principal); R73.9 Hyperglycemia, unspecified; K85.20 Alcohol induced acute pancreatitis without necrosis or infection; R16.0 Hepatomegaly, not elsewhere classified
CPT/HCPCS: 36415; 80053; 83036

== ENCOUNTER 2020-03-16 12:19 | Inpatient (IN) | payer MEDICAID ==
[2020-03-16] MEDS ORDERED: THIAMINE INJ 100 MG in SODIUM CHLORIDE 0.9% 50 ML IV STA (13:28)
[2020-03-16] MEDS ORDERED: ONDANSETRON 4 MG/2 ML VIAL IVP STA (13:28)
--- NOTE | 2020-03-16 13:31 | ED Physician Documentation ---
PD HPI ABD PAIN - Stated complaint Stated Complaint: WEAKNESS - Chief complaint Chief Complaint: Abd Pain - History obtained from History obtained from: Patient, Family (mom) - History of Present Illness Timing - onset: Other (24-year-old woman with longstanding problems with alcohol presents with for the last 3 days. She became sick on Sunday and stopped drinking. She did not really have any withdrawal over the weekend, just cannot keep any liquids down and feels generally weak.) Review of Systems Ten Systems: 10 systems reviewed and negative Constitutional: reports: Fatigue. denies: Fever, Chills Respiratory: reports: Cough (Nonproductive for 3-month, "smoker's cough") GI: reports: Abdominal Pain (Mild "from coughing"), Nausea, Vomiting. denies: Diarrhea PD PAST MEDICAL HISTORY - Past Medical History Cardiovascular: None Respiratory: None Neuro: None Endocrine/Autoimmune: None GI: None SENIOR MEDICAL TRANSCRIPTIONIST: None : None HEENT: None Psych: Depression Musculoskeletal: None Derm: None - Past Surgical History Past Surgical History: No - Present Medications Home Medications: Ambulatory Orders Medication Instructions Recorded Confirmed Levofloxacin [Levaquin] 500 mg PO DAILY #3 tablet 10/03/18 oxyCODONE/ACET 5/325 [Percocet 5 1 each PO Q4-6H #30 tablet 10/03/18 mg/325 mg] - Allergies Allergies/Adverse Reactions: Allergies Allergy/AdvReac Type Severity Reaction Status Date / Time No Known Drug Allergies Allergy Verified 03/16/20 12:24 - Social History Does the pt smoke?: Yes Smoking Status: Current some day smoker Does the pt drink ETOH?: Yes Does the pt have substance abuse?: No - Immunizations Immunizations are current?: Yes - POLST Patient has POLST: No POLST Status: Full Code PD ED PE NORMAL - Vitals Vital signs reviewed: Yes - General General: Alert and oriented X 3, Other (Allan face, slightly slow to answer questions) - HEENT HEENT: Other (Mildly icteric, no nystagmus, tongue is without tremor) - Neck Neck: Supple, no meningeal sign, No bony TTP - Cardiac Cardiac: RRR, No murmur - Respiratory Respiratory: No respiratory distress, Clear bilaterally - Abdomen Abdomen: Normal bowel sounds, Soft, Non tender - Back Back: No CVA TTP, No spinal TTP - Derm Derm: Normal color, Warm and dry - Extremities Extremities: No edema, No calf tenderness / cord - Neuro Neuro: Alert and oriented X 3, No motor deficit, No sensory deficit, Normal speech Results - Vitals Vitals: Vital Signs - 24 hr 03/16/20 12:24 Temperature 36.5 C Heart Rate 87 Respiratory 16 Rate Blood Pressure 113/54 L O2 Saturation 98 Oxygen O2 Source Room air - EKG (time done) 1406 Rate: Rate (enter#) (80) Rhythm: NSR [place]: Normal Intervals: Normal RI, Other (IVCD) Ischemia: Non specific changes Computer interpretation: Agree with computer - Labs Labs: Laboratory Tests 03/16/20 03/16/20 03/16/20 13:45 13:45 13:45 WBC 11.1 H RBC 2.95 L Hgb 9.7 L Hct 26.0 L MCV 88.1 MCH 32.9 H MCHC 37.3 H RDW 15.5 H Plt Count 188 MPV 10.2 Neut # (Auto) 8.7 H Lymph # (Auto) 1.5 [place] # (Auto) 0.8 Eos # (Auto) 0.0 Baso # (Auto) 0.0 Absolute Nucleated RBC 0.02 Nucleated RBC % 0.2 PT 15.5 H INR 1.4 H Sodium 104 L* Potassium 1.8 L* Chloride 57 L* Carbon Dioxide 27 Anion Gap 20.0 H BUN 7 Creatinine 0.6 Estimated GFR (MDRD) 121 Glucose 112 H Calcium 7.4 L Total Bilirubin 1.5 H AST 65 H ALT 31 Alkaline Phosphatase 147 H Total Protein 6.4 L Albumin 3.0 L Globulin 3.4 Albumin/Globulin Ratio 0.9 L Lipase 31 Ethyl Alcohol < 5.0 PD MEDICAL DECISION MAKING - ED course ED course: 24-year-old woman with chronic history of alcohol use presents with a several ill day illness of vomiting and nausea. She was unable to keep any alcohol down but really did not have a withdrawal syndrome to speak of. She is a little slow to answer questions but otherwise her examination is surprisingly normal given the level of electrolyte derangements present with profound hyponatremia which was checked twice by the lab given the severity of the derangements. By the time her labs were noted she had already received 1 L of saline, further crystalloid replacement was stopped in order not to cause central pontine myelinolysis. She received IV potassium. Spoke with Dr. Villarreal for admission at 2:19 PM. Departure - Departure Disposition: 66 [facility] DC/Xfer Clinical Impression: Alcohol abuse, Hypokalemia, Hyponatremia Condition: Critical
[2020-03-16 13:57] LABS: INR 1.4 (0.8-1.2); PT - PROTHROMBIN TIME 15.5 secs (9.9-12.6)
[2020-03-16 14:06] LABS: ALBUMIN/GLOBULIN RATIO 0.9 (1.0-2.2); ALKALINE PHOSPHATASE 147 IU/L (42-121); ALT ALANINE AMINOTRANSFERASE 31 IU/L (10-60); AST ASPARTATE AMINOTRANSFERASE 65 IU/L (10-42); BASOPHILS % (AUTO) 0.3 %; BILIRUBIN,TOTAL 1.5 mg/dL (0.2-1.0); BUN - BLOOD UREA NITROGEN 7 mg/dL (6-20); CALCIUM 7.4 mg/dL (8.5-10.3); CARBON DIOXIDE - CO2 27 mmol/L (21-32); CREATININE 0.6 mg/dL (0.4-1.0); EOSINOPHILS % (AUTO) 0.1 %; GLUCOSE 112 mg/dL (70-100); HGB - HEMOGLOBIN 9.7 g/dL (12.0-16.0); LIPASE 31 U/L (22-51); LYMPHOCYTES # (AUTO) 1.5 10^3/uL (1.5-3.5); LYMPHOCYTES % (AUTO) 13.2 %; MEAN CORPUSCULAR HEMOGLOBIN 32.9 pg (27.0-31.0); MEAN CORPUSCULAR HGB CONC 37.3 g/dL (32.0-36.0); MEAN CORPUSCULAR VOLUME 88.1 fL (81.0-99.0); MEAN PLATELET VOLUME 10.2 fL (7.9-10.8); MONOCYTES # (AUTO) 0.8 10^3/uL (0.0-1.0); MONOCYTES % (AUTO) 7.1 %; NEUTROPHILS # (AUTO) 8.7 10^3/uL (1.5-6.6); NEUTROPHILS % (AUTO) 78.5 %; PLT - PLATELET COUNT 188 10^3/uL (130-450); RED BLOOD COUNT 2.95 10^6/uL (4.20-5.40); RED CELL DISTRIBUTION WIDTH 15.5 % (12.0-15.0); TOTAL PROTEIN 6.4 g/dL (6.7-8.2); WHITE BLOOD COUNT 11.1 x10^3/uL (4.8-10.8)
[2020-03-16 14:07] LABS: CHLORIDE 57 mmol/L (101-111); SODIUM 104 mmol/L (135-145)
[2020-03-16] MEDS ORDERED: POTASSIUM CHLOR 10 MEQ/100 ML 10 MEQ/100 ML BAG IV ONE ×2 (14:11→14:12)
[2020-03-16] MEDS ORDERED: PROCHLORPERAZINE 10 MG/2 ML VIAL IVP PRN (14:44)
[2020-03-16] MEDS ORDERED: ONDANSETRON 4 MG/2 ML VIAL IVP PRN (14:44)
[2020-03-16] MEDS ORDERED: LORazepam 2 MG/ML VIAL IVP PRN (14:51)
[2020-03-16] MEDS ORDERED: NS W/20 MEQ KCL 1,000 ML IV SCH (15:00)
[2020-03-16] MEDS: NS W/20 MEQ KCL 1,000 ML IV SCH (16:00)
[2020-03-16] MEDS ORDERED: MULTIVITAMIN 10 ML, THIAMINE INJ 100 MG, FOLIC ACID INJ 1 MG in SODIUM CHLORIDE 0.9% 1,... IV SCH (16:00)
[2020-03-16] MEDS: NICOTINE 14 MG PATCH TOP SCH (16:07)
[2020-03-16] MEDS ORDERED: DESMOPRESSIN 1 MCG in SODIUM CHLORIDE 0.9% 50 ML IV ONE (16:11)
[2020-03-16 16:14] LABS: MUDS CUTOFF CONCENTRATIONS CUTOFF CONC BELOW:
[2020-03-16] MEDS: SODIUM CHLORIDE FLUSH 0.9% 10 ML SYRINGE IVP SCH (16:24)
[2020-03-16 16:25] LABS: BILIRUBIN,URINE NEGATIVE (NEGATIVE); GLUCOSE, URINE (UA) NEGATIVE (NEGATIVE); KETONES,URINE (UA) NEGATIVE (NEGATIVE); LEUKOCYTE ESTERASE, URINE SMALL (NEGATIVE); NITRITE,URINE NEGATIVE (NEGATIVE); OCCULT BLOOD,URINE NEGATIVE (NEGATIVE); PROTEIN,URINE NEGATIVE (NEGATIVE); UROBILINOGEN,URINE 0.2 (NORMAL) E.U./dL (NORMAL)
[2020-03-16 16:27] LABS: CLARITY,URINE HAZY (CLEAR); HCG UR QUAL NEGATIVE
[2020-03-16 16:37] LABS: AMPHETAMINE SCREEN,URINE NEGATIVE (NEGATIVE); BENZODIAZEPINES SCREEN, URINE NEGATIVE (NEGATIVE); COCAINE SCREEN URINE NEGATIVE (NEGATIVE); METHADONE SCREEN, URINE NEGATIVE (NEGATIVE); METHAMPHETAMINES SCREEN, URINE NEGATIVE (NEGATIVE); OPIATE SCREEN, URINE NEGATIVE (NEGATIVE); OXYCODONE SCREEN, URINE NEGATIVE (NEGATIVE); PROPOXYPHENE SCREEN, URINE NEGATIVE (NEGATIVE); TRICYCLIC ANTIDEPRESSANT,URINE NEGATIVE (NEGATIVE)
[2020-03-16 16:48] LABS: BACTERIA,URINE Moderate /HPF (None Seen); RBC,URINE 0-5 /HPF (0-5); SQUAMOUS EPITHELIAL CELL,UR NONE SEEN (<= Few)
[2020-03-16] MEDS: SUCRALFATE 1 GM/10 ML UDC PO SCH (17:27)
--- NOTE | 2020-03-16 17:37 | XRAY Report ---
PROCEDURE: Chest 1 View X-Ray INDICATIONS: cough TECHNIQUE: One view of the chest was acquired. COMPARISON: 10/02/2018 FINDINGS: Surgical changes and devices: None. Lungs and pleura: No pleural effusions or pneumothorax. Lungs are clear. Mediastinum: Mediastinal contours appear normal. Heart size is normal. Bones and chest wall: No suspicious bony lesions. Overlying soft tissues appear unremarkable. IMPRESSION: No acute cardiopulmonary pathology. Reviewed by: Eleuterio Santiago MD on 03/16/2020 5:36 PM PDT Approved by: Eleuterio Santiago MD on 03/16/2020 5:36 PM PDT Station ID: [id number]
--- NOTE | 2020-03-16 17:45 | HISTORY & PHYSICAL EXAMINATION ---
DATE OF SERVICE: 03/16/2020 Physician: Aditi Villarreal MD HISTORY OF PRESENT ILLNESS: This is a 24-year-old white female with a history of alcohol abuse, alcoholic pancreatitis in the past, hyponatremia in the past. She continues to drink alcohol and uses wine, about half of wine box daily. The patient started to have a cough without sputum production approximately 2 weeks ago. Three days ago, she started to get nausea and vomiting, and stopped her alcohol intake and did not get "shaky." She was able to take broths and water. Whenever she had the cough, this also promoted the vomiting. She was brought to the Emergency Room and noted very abnormal electrolytes and also was somewhat slow in answering. She is found to have a serum sodium of 104 and potassium of 1.8 is being admitted to the ICU for severe hypovolemic hyponatremia, with risk of overcorrection that would produce osmotic demyelination syndrome. PAST MEDICAL HISTORY: Alcohol abuse, alcoholic pancreatitis in the past, hyponatremia in the past. ALLERGIES: NONE. MEDICATIONS 1. Oxycodone p.r.n. 2. Levaquin in the past, but none recently. FAMILY HISTORY: No inherited diseases. SOCIAL HISTORY: She lives with her parents. She has facial piercings. She drinks half box of wine daily for years. She tells me that she has quit in the past and then resumed for, she said unknown reason. She does not drink with her friends and says "I don't have many friends." She has no job. just stays in the house and watches TV. No history of drug abuse, specifically no Ecstasy use. She is a smoker of less than a pack a day. REVIEW OF SYSTEMS: There has been no fever, no productive cough. She does describe pain in both lateral sides of her tongue, because she thinks she bit it during vomiting once. The back of her throat is irritated from the cough and also from the vomiting. There has been no hematemesis or melena. She denies any abdominal pain or distention. The rest of the comprehensive review of systems was done and pertinent positives are listed, the rest are negative. PHYSICAL EXAMINATION GENERAL: Cushingoid, or lorenz-faced appearing young female who is pale, but in no distress. VITAL SIGNS: Blood pressure 113/50, heart rate 80-85 in sinus rhythm, afebrile, room air saturation 100%. HEENT: Reveals pallor and cushingoid appearance. Her oral mucosa is moist. There are piercings of both lower cheeks and the right lower face. NECK: No JVD or carotid bruits. CHEST: Clear. HEART: Normal heart sounds. ABDOMEN: Soft, nontender, not distended. Decreased bowel sounds. No guarding or rebound. EXTREMITIES: No clubbing, cyanosis or edema. NEUROLOGIC: Slow answers, but appropriate, oriented x3. No focal findings. LABORATORY DATA: Sodium 104, potassium 1.8, chloride 57, bicarbonate 27, anion gap 20, BUN 7, creatinine 0.6. Calcium 7.4 with an albumin low at 3, magnesium 1.7, AST 65, ALT 31, alkaline phosphatase 147. Bilirubin 1.5. Lipase normal at 31. White blood count 11.1, hemoglobin 9.7 with a normal MCV of 88, but RDW of 15, platelet count normal at 188. INR elevated at 1.4. Urinalysis was negative for hCG. The urine sodium is less than 12. Her urine osmolality is pending. The urine is yellow with pH of 6 and specific gravity of 1.02 with small leukocyte esterase and moderate bacteria. Toxicology showed no alcohol present in the serum and iss negative on the entire urine toxicology findings. IMAGING: Chest x-ray was not done. EKG: Normal sinus rhythm, rate of 80, inferior T waves are flat, and there is a prolonged QT interval of 559 milliseconds. No old EKG available for comparison. IMPRESSION/DIAGNOSES 1. Hyponatremia. 2. Hypokalemia. 3. Alcohol abuse. 4. Elevated liver function tests. 5. Elevated INR. 6. Abnormal urinalysis, suspicious for UTI. 7. Tobacco abuse. 8. Anemia. 9. Prolonged QT interval. PLAN: Admit the patient to inpatient status on telemetry in the ICU. Begin frequent serum sodium monitoring, correction of sodium at a rate of no more than 4-8 units in the next 24 hours. Start iv Desmopressin at a dose of 1 mcg every 6 hours, in order to prevent water diuresis and over rapid correction of the serum sodium, to avoid osmotic demyelination syndrome. Since demyelination syndrome would not reveal itself until 4-8 days from now; therefore, correction slowly is important. Correct the serum potassium with IV runners and in IV fluids. Watch her urine sodium and urine osmolality daily. Increase the desmopressin dose if she is hypo-osmolar at a value of less than 200 mOsm/kg. We will order a diet that is pureed, since she is currently not nauseated, but not allow any free water intake, such as water, tea or coffee. She can have broths. Order p.r.n. antiemetics. Order CIWA protocol with IV Ativan if needed for alcohol withdrawal. Follow her INR daily. Follow her CBC daily. Obtain iron levels, B12 and folate serum levels and replace if low. Transfuse if her hemoglobin goes under 7 or if there is bleeding. Begin treatment of her irritated throat with Sucralfate and begin peptic ulcer disease prophylaxis with IV medication. Estrada will be used for this critically ill patient to watch urine output, the osmolality and avoid overcorrection of serum sodium. Await the urinalysis, which will go to culture, in case there is need for antibiotics. When she is medically clear, Social Work will be consulted regarding management of alcohol abuse and detoxification options. DEEP VENOUS THROMBOSIS PROPHYLAXIS: SCDs. CODE STATUS: FULL CODE. ATTESTATION: The patient is expected to be discharged or transferred to another facility within 96 hours: Yes. cc: Dorothea Meng PA-C TD: 03/16/2020 17:13 DIEGO
[2020-03-16] MEDS: MAGNESIUM OXIDE 400 MG TABLET PO SCH (18:11)
[2020-03-16] MEDS: POTASSIUM CHLOR 10 MEQ/100 ML 10 MEQ/100 ML BAG IV SCH ×4 (18:12→23:00)
--- NOTE | 2020-03-16 18:13 | PHARMACY PROGRESS NOTE ---
- Best Possible Medication History Admit Date and Time: 03/16/20 1441 Processed by: Pharmacy Medication History completed: Yes Patient Interview: Completed As the person ultimately responsible for medication therapy, providers are able to order a medication from an existing home medication list in [facility] via the "Reconcile Routine" prior to Confirmation of that medication by product support representative. Such practice is discouraged except when the physician, in their clinical pham gment, deems that a medical need exists for a medication without regard to previous use.
[2020-03-16] MEDS: SODIUM CHLORIDE FLUSH 0.9% 10 ML SYRINGE IVP PRN (18:15)
--- NOTE | 2020-03-16 20:29 | ANESTHESIA PROCEDURE NOTE ---
Anesth Central Line Template - Central Line Central Line Preparation: Consent Obtained, Time out completed, Ultrasound used, Sterile prep and drape Central line location: Right IJ Central line type: Triple lumen Central line catheter tip site resides: will wait for radiology confirmation Central line aftercare: Chlorhexidine disc placed, Secured, Placement confirmed, No pneumothorax, No complications, Bundle checklist complete, Pt tolerated well, Other (The hospitalist requested a central venouv access for this patient.7 canadian tripple lumen central line placed in the right IJ.)
--- NOTE | 2020-03-16 20:31 | PROCEDURE REPORT ---
Hospitalist Procedure Note - Procedure Note Procedure Note: The hospitalist requested a central venous access for this patient.7 thai tripple lumen central line placed in the right IJ. risks and benefits explained to the patient. She agrees to proceed. RN in the room to assist. See the CL procedure for further details.
[2020-03-16 20:44] LABS: VBG PH 7.598 (7.31-7.41)
[2020-03-16] MEDS ORDERED: PHENOL THROAT SPRAY 177 ML MM PRN (21:14)
[2020-03-16] MEDS: FAMOTIDINE 20 MG/2 ML SYRINGE IVP SCH (21:25)
--- NOTE | 2020-03-16 21:45 | XRAY Report ---
PROCEDURE: Chest for Line Placement INDICATIONS: central line placement TECHNIQUE: One view of the chest was acquired. COMPARISON: Right internal jugular central venous catheter tip is in SVC. FINDINGS: Surgical changes and devices: None. Lungs and pleura: No pleural effusions or pneumothorax. Lungs are clear. Mediastinum: Mediastinal contours appear normal. Heart size is enlarged. Bones and chest wall: No suspicious bony lesions. Overlying soft tissues appear unremarkable. IMPRESSION: Right-sided central venous catheter tip is in SVC. No acute cardiopulmonary pathology. Reviewed by: Eleuterio Santiago MD on 03/16/2020 9:44 PM PDT Approved by: Eleuterio Santiago MD on 03/16/2020 9:44 PM PDT Station ID: [id number]
[2020-03-16] MEDS ORDERED: DESMOPRESSIN 1 MCG in SODIUM CHLORIDE 0.9% 50 ML IV SCH (23:00)
[2020-03-17] MEDS: POTASSIUM CHLOR 10 MEQ/100 ML 10 MEQ/100 ML BAG IV SCH ×3 (00:03→03:58)
[2020-03-17] MEDS: MAGNESIUM OXIDE 400 MG TABLET PO SCH (00:31)
[2020-03-17] MEDS: diphenhydrAMINE 25 MG CAPSULE PO PRN ×2 (00:39→23:59)
[2020-03-17] MEDS: SODIUM CHLORIDE FLUSH 0.9% 10 ML SYRINGE IVP SCH ×3 (03:57→17:55)
[2020-03-17 05:15] LABS: BASOPHILS % (AUTO) 0.2 %; EOSINOPHILS % (AUTO) 0.5 %; HGB - HEMOGLOBIN 8.5 g/dL (12.0-16.0); LYMPHOCYTES # (AUTO) 1.8 10^3/uL (1.5-3.5); LYMPHOCYTES % (AUTO) 20.6 %; MEAN CORPUSCULAR HEMOGLOBIN 34.4 pg (27.0-31.0); MEAN CORPUSCULAR VOLUME 93.1 fL (81.0-99.0); MEAN PLATELET VOLUME 10.6 fL (7.9-10.8); MONOCYTES # (AUTO) 0.5 10^3/uL (0.0-1.0); NEUTROPHILS # (AUTO) 6.3 10^3/uL (1.5-6.6); PLT - PLATELET COUNT 166 10^3/uL (130-450); RED BLOOD COUNT 2.47 10^6/uL (4.20-5.40); RED CELL DISTRIBUTION WIDTH 15.8 % (12.0-15.0); WHITE BLOOD COUNT 8.8 x10^3/uL (4.8-10.8)
[2020-03-17 05:28] LABS: ALBUMIN 2.7 g/dL (3.2-5.5); ALBUMIN/GLOBULIN RATIO 0.9 (1.0-2.2); ALKALINE PHOSPHATASE 135 IU/L (42-121); ALT ALANINE AMINOTRANSFERASE 27 IU/L (10-60); AST ASPARTATE AMINOTRANSFERASE 71 IU/L (10-42); BUN - BLOOD UREA NITROGEN 6 mg/dL (6-20); CALCIUM 6.9 mg/dL (8.5-10.3); CARBON DIOXIDE - CO2 28 mmol/L (21-32); CREATININE 0.6 mg/dL (0.4-1.0); GLUCOSE 76 mg/dL (70-100); MAGNESIUM 1.8 mg/dL (1.7-2.8); PHOSPHORUS 2.5 mg/dL (2.5-4.6); TOTAL PROTEIN 5.6 g/dL (6.7-8.2)
[2020-03-17 05:29] LABS: CHLORIDE 69 mmol/L (101-111); SODIUM 107 mmol/L (135-145)
[2020-03-17 05:31] LABS: INR 1.3 (0.8-1.2); PT - PROTHROMBIN TIME 14.3 secs (9.9-12.6)
[2020-03-17 05:54] LABS: FOLATE 22.21 ng/mL (5.90 - >24.8)
[2020-03-17 06:12] LABS: VBG PH 7.501 (7.31-7.41)
[2020-03-17] MEDS: POTASSIUM CHLOR 20 MEQ/100 ML 20 MEQ/100 ML BAG IV SCH ×4 (06:17→09:28)
[2020-03-17] MEDS: SUCRALFATE 1 GM/10 ML UDC PO SCH ×2 (06:17→11:08)
[2020-03-17] MEDS ORDERED: CALCIUM GLUCONATE 2,000 MG in SODIUM CHLORIDE 0.9% 100ML 100 ML IV ONE (06:30)
[2020-03-17] MEDS: NICOTINE 14 MG PATCH TOP SCH (08:42)
--- NOTE | 2020-03-17 08:45 | PROVIDER PROGRESS NOTE ---
Assessment/Plan - Problem List (1) Hyponatremia Assessment/Plan: Serum sodium had improved from 104-107 over about 12 hours. This is within the safe increase of 4 to 8 mEq in 24 hours. Desmopressin was ordered but was discontinued by last night's Technology Project Manager, since the correction of sodium appeared to be appropriately slow. Earler today, the patient's urine output picked up which the RN noted. Thn this afternoon sodium went up to 122. Will stop iv saline and start iv D5, to slow the rap[id increase in swerum sodium, to avoid demyelination syndrome. Will restart iv Desmopressin. Watch daily urine sodium and urine osmolality in case she gets more water diuresis, then will increase desmopressin. Follow serum sodium every 12 hours. Since this is a very dangerous situation where she could get demyelination syndrome and permanent neurologic damage, she needs to remain in the ICU for careful electrolyte monitoring and sodium replacement. I suspect she will need 2-3 days for correction of the sodium to a safe range. (2) Hypokalemia Assessment/Plan: Potassium is improved from 1.8 to 2.8 over about 12 hours. Related to poor nutrition with alcoholism. Replace IV and p.o. Follow potassium levels every 12 hours (3) Alcoholic hepatitis Assessment/Plan: LFTs are slightly improved, off alcohol intake for about 4 days now. Follow CMP daily. (4) Inflammation associated with voluntary body piercing Assessment/Plan: Patient is complaining of mouth pain. The skin at the site of facial piercing in the R cheek is reddened. Will have the piercings removed. Will order wipe topically with alcohol pads. Will order clean internally with Peridex swish and spit. Will start Augmentin. (5) Alcohol abuse Assessment/Plan: CIWA protocol has been ordered if needed. Watch for alcohol withdrawal. We will eventually need a Social Work consult regarding substance abuse managed (6) Anemia Assessment/Plan: Check CBC daily, B12 folate and iron panel, guaic nato test as well - Current Meds Current Meds: Current Medications Generic Name Dose Route Start Last Admin Trade Name Freq PRN Reason Stop Dose Admin Diphenhydramine HCl 25 mg 03/17/20 00:06 03/17/20 00:39 Benadryl PO 25 mg QPM PRN Administration Insomnia Famotidine 20 mg 03/16/20 21:00 03/16/20 21:25 Pepcid IVP 20 mg BID EDISON Administration Multivitamins 10 ml/ Thiamine 1,011.2 mls @ 50 mls/hr 03/16/20 16:00 03/17/20 07:26 HCl 100 mg/ Folic Acid 1 mg/ IV 50 mls/hr Sodium Chloride 1600 EDISON Infusion Potassium Chloride/Sodium Chloride 1,000 mls @ 50 mls/hr 03/16/20 15:00 03/17/20 07:25 Normal Saline 0.9% W/20 Meq Kcl IV 50 mls/hr .Q20H EDISON Infusion Potassium Chloride 20 meq in 100 mls @ 100 mls/hr 03/17/20 06:00 03/17/20 08:23 Potassium Chloride IV 03/17/20 09:59 100 mls/hr Q1H EDISON Administration Nicotine 1 patch 03/16/20 14:59 03/16/20 16:07 Nicoderm TOP 1 patch DAILY EDISON Administration Phenol/Menthol 1 sprays 03/16/20 21:14 03/16/20 21:24 Chloraseptic MM 1 sprays Q4HR PRN Administration Mouth Sore Pain Sodium Chloride 10 ml 03/16/20 17:00 03/17/20 08:29 Normal Saline Flush 0.9% IVP 20 ml 0100,0900,1700 EDISON Administration Sodium Chloride 10 ml 03/16/20 14:44 03/16/20 18:15 Normal Saline Flush 0.9% IVP 10 ml PRN PRN Administration NEEDED PER PROVIDER ORDERS Sucralfate 1 gm 03/16/20 16:57 03/17/20 06:17 Carafate PO 1 gm 0700,1100,1600 EDISON Administration - Lab Result Fish Bone Diagrams: 03/18/20 04:20 03/18/20 12:02 - Additional Planning My Orders: My Active Orders 03/16/20 14:44 Activity Orders [RC] Q2HR Daily Weight [RC] 0600 IO [RC] Q1HR IV Insert [RC] ONCE Initiate Bowel Care Protocol [RC] QSHIFT Initiate Flu Vaccine Screening [RC] ONCE Initiate ICU Electrolyte Prot. [RC] .protocol Initiate Line Care Protocol [RC] .protocol Initiate Personal Care Protoco [RC] .protocol Initiate Pneumonia Vaccine Scr [RC] ONCE Vital Signs [RC] Q2HR Ondansetron Inj [Zofran Inj] 4 mg IVP Q6HR PRN Prochlorperazine Inj [Compazine Inj] 10 mg IVP Q6HR PRN Sodium Chloride Flush 0.9% [Normal Saline Flush 0.9%] 10 ml IVP PRN PRN Code Status [OTHERS] Routine Condition of Patient [OTHERS] Routine DVT Prophylaxis [OTHERS] Routine 03/16/20 14:47 Blood Glucose POC [RC] Routine Oral Care - Nursing [RC] Routine Telemetry- [RC] Q4HR Turn, Cough and Deep Breathe [RC] Routine 03/16/20 14:48 Oxygen Therapy [RC] Routine SCDs [RC] QSHIFT 03/16/20 14:50 Initiate Line Care Protocol [RC] QSHIFT 03/16/20 14:51 CIWA - AR Score Card [RC] Routine Routine Neuro Check [RC] Routine Routine LORazepam INJ [Ativan Inj (Vial)] 1 mg IVP Q30M PRN 03/16/20 14:59 Nicotine 14 mg Patch [Nicoderm] 1 patch TOP DAILY 03/16/20 15:00 Ns W/20 Meq KCl [Normal Saline 0.9% W/20 Meq KCl] 1,000 ml IV 50 mls/hr 03/16/20 15:56 OSMOLALITY URINE [REFLAB] Stat 03/16/20 16:00 Multivitamin [Infuvite] 10 ml Thiamine Inj [Vitamin B-1 Inj] 100 mg Folic Acid Inj 1 mg Sodium Chloride 0.9% [Normal Saline 0.9%] 1,000 ml IV 1600 03/16/20 Dinner DIET [Dysphagia Puree Diet] [DIET] 03/16/20 16:31 Estrada Insertion [RC] QSHIFT 03/16/20 16:57 Sucralfate [Carafate] 1 gm PO 0700,1100,1600 03/16/20 17:00 Sodium Chloride Flush 0.9% [Normal Saline Flush 0.9%] 10 ml IVP 0100,0900,1700 03/16/20 21:00 Famotidine [Pepcid] 20 mg IVP BID 03/17/20 06:00 Potassium Chlor 20 Meq/100 ml [Potassium Chloride] 20 meq in 100 ml IV Q1H 03/17/20 08:39 Miscellaenous Nursing Order [RC] ONCE 03/17/20 09:00 OSMOLALITY URINE [REFLAB] Routine SODIUM, URINE [UC] Chlorhexidine [Peridex] 15 ml PO BID 03/17/20 12:00 POTASSIUM [CHEM] Q6H SODIUM [CHEM] Q6H 03/17/20 18:00 POTASSIUM [CHEM] Q6H SODIUM [CHEM] Q6H 03/18/20 00:00 SODIUM [CHEM] Q6H 03/18/20 05:00 AMMONIA [CHEM] DAILYLAB CBC - COMP BLD CT W/AUTO DIFF [HEME] DAILYLAB COMPREHENSIVE METABOLIC PANEL [CHEM] DAILYLAB MAGNESIUM [CHEM] DAILYLAB PHOSPHORUS [CHEM] DAILYLAB PT WITH INR [COAG] DAILYLAB 03/18/20 06:00 SODIUM [CHEM] Q6H 03/18/20 09:00 SODIUM, URINE [UC] 03/18/20 12:00 SODIUM [CHEM] Q6H 03/19/20 05:00 CBC - COMP BLD CT W/AUTO DIFF [HEME] DAILYLAB COMPREHENSIVE METABOLIC PANEL [CHEM] DAILYLAB MAGNESIUM [CHEM] DAILYLAB PHOSPHORUS [CHEM] DAILYLAB 03/20/20 05:00 CBC - COMP BLD CT W/AUTO DIFF [HEME] DAILYLAB COMPREHENSIVE METABOLIC PANEL [CHEM] DAILYLAB MAGNESIUM [CHEM] DAILYLAB PHOSPHORUS [CHEM] DAILYLAB Subjective - Subjective Patient Reports: Feeling Better, Resting Comfortably Nursing Reports: Other (Wiped them with cleanser, both cheeks were reddened at the site of the piercingWhen she remove the piercings) Objective Vital Signs: Vital Signs - 24 hr 03/16/20 03/16/20 03/16/20 12:24 14:30 14:52 Temperature 36.5 C Heart Rate 87 80 78 Heart Rate [ Monitoring electrodes] Respiratory 16 28 H 22 Rate Blood Pressure 113/54 L 107/67 99/67 Blood Pressure [Left Brachial artery] O2 Saturation 98 100 99 03/16/20 03/16/20 03/16/20 15:27 16:14 17:00 Temperature 36.4 C L Heart Rate Heart Rate [ 84 81 82 Monitoring electrodes] Respiratory 16 12 23 Rate Blood Pressure Blood Pressure 107/76 94/64 100/68 [Left Brachial artery] O2 Saturation 100 100 100 03/16/20 03/16/20 03/16/20 19:00 21:00 23:00 Temperature 36.5 C Heart Rate Heart Rate [ 82 83 79 Monitoring electrodes] Respiratory 16 23 23 Rate Blood Pressure Blood Pressure 98/74 101/69 98/70 [Left Brachial artery] O2 Saturation 100 94 100 03/17/20 03/17/20 03/17/20 05:00 06:59 07:48 Temperature 36.6 C 36.9 C Heart Rate Heart Rate [ 71 77 75 Monitoring electrodes] Respiratory 19 20 17 Rate Blood Pressure Blood Pressure 93/66 98/74 102/71 [Left Brachial artery] O2 Saturation 97 99 100 Oxygen O2 Source Room air I&O (Last 24 Hrs): Intake and Output Totals x24h 03/15/20 03/16/20 03/17/20 23:59 23:59 23:59 Intake Total 4708.513 8896.500 Output Total 970 750 Balance 056.472 2123.500 General: Alert, Oriented x3 HEENT: Mucous membr. moist/pink, Other (The skin around the piercing in the right cheek is reddened, is spreading outward, total size is approximately 2 cm diameter) Neck: Supple, No JVD Neuro: Alert, Non Focal Cardiovascular: Regular rate Respiratory: No respiratory distress Abdomen: Soft Extremities: No edema, Other (PAle) - Results Results: Laboratory Results WBC 8.8 x10^3/uL (4.8-10.8) 03/17/20 05:05 RBC 2.47 10^6/uL (4.20-5.40) L 03/17/20 05:05 Hgb 8.5 g/dL (12.0-16.0) L 03/17/20 05:05 Hct 23.0 % (37.0-47.0) L 03/17/20 05:05 MCV 93.1 fL (81.0-99.0) 03/17/20 05:05 MCH 34.4 pg (27.0-31.0) H 03/17/20 05:05 MCHC 37.0 g/dL (32.0-36.0) H 03/17/20 05:05 RDW 15.8 % (12.0-15.0) H 03/17/20 05:05 Plt Count 166 10^3/uL (130-450) 03/17/20 05:05 MPV 10.6 fL (7.9-10.8) 03/17/20 05:05 Neut # (Auto) 6.3 10^3/uL (1.5-6.6) 03/17/20 05:05 Lymph # (Auto) 1.8 10^3/uL (1.5-3.5) 03/17/20 05:05 [place] # (Auto) 0.5 10^3/uL (0.0-1.0) 03/17/20 05:05 Eos # (Auto) 0.0 10^3/uL (0.0-0.7) 03/17/20 05:05 Baso # (Auto) 0.0 10^3/uL (0.0-0.1) 03/17/20 05:05 Absolute Nucleated RBC 0.04 x10^3/uL 03/17/20 05:05 Nucleated RBC % 0.5 /100WBC 03/17/20 05:05 PT 14.3 secs (9.9-12.6) H 03/17/20 05:05 INR 1.3 (0.8-1.2) H 03/17/20 05:05 VBG pH 7.501 (7.31-7.41) H 03/17/20 05:45 Ionized Calcium 0.94 mmol/L (1.15-1.33) L 03/17/20 05:45 Sodium 107 mmol/L (135-145) L* 03/17/20 05:05 Sodium 107 mmol/L (135-145) L* 03/17/20 05:05 Potassium 2.8 mmol/L (3.5-5.0) L 03/17/20 05:05 Potassium 2.8 mmol/L (3.5-5.0) L 03/17/20 05:05 Chloride 69 mmol/L (101-111) L* 03/17/20 05:05 Carbon Dioxide 28 mmol/L (21-32) 03/17/20 05:05 Anion Gap 10.0 (6-13) 03/17/20 05:05 BUN 6 mg/dL (6-20) 03/17/20 05:05 Creatinine 0.6 mg/dL (0.4-1.0) 03/17/20 05:05 Estimated GFR (MDRD) 121 (>89) 03/17/20 05:05 Glucose 76 mg/dL (70-100) 03/17/20 05:05 Calcium 6.9 mg/dL (8.5-10.3) L 03/17/20 05:05 Phosphorus 2.5 mg/dL (2.5-4.6) 03/17/20 05:05 Magnesium 1.8 mg/dL (1.7-2.8) 03/17/20 05:05 Iron 90 ug/dL (28-170) 03/17/20 05:05 TIBC 162 ug/dL (250-450) L 03/17/20 05:05 % Saturation 55 % (20-50) H 03/17/20 05:05 Transferrin 116 mg/dL (192-382) L 03/17/20 05:05 Total Bilirubin 1.0 mg/dL (0.2-1.0) 03/17/20 05:05 AST 71 IU/L (10-42) H 03/17/20 05:05 ALT 27 IU/L (10-60) 03/17/20 05:05 Alkaline Phosphatase 135 IU/L (42-121) H 03/17/20 05:05 Ammonia 17.0 umol/L (7-35) 03/17/20 05:05 Total Protein 5.6 g/dL (6.7-8.2) L 03/17/20 05:05 Albumin 2.7 g/dL (3.2-5.5) L 03/17/20 05:05 Globulin 2.9 g/dL (2.1-4.2) 03/17/20 05:05 Albumin/Globulin Ratio 0.9 (1.0-2.2) L 03/17/20 05:05 Lipase 31 U/L (22-51) 03/16/20 13:45 Vitamin B12 2023 pg/mL (180-914) H 03/17/20 05:05 Folate 22.21 ng/mL (5.90 - >24.8) 03/17/20 05:05 TSH 2.02 uIU/mL (0.34-5.60) 03/16/20 20:28 Cortisol AM Sample 8.4 ug/dL 03/17/20 05:05 Urine Color DARK YELLOW 03/16/20 15:56 Urine Clarity HAZY (CLEAR) 03/16/20 15:56 Urine pH 6.0 PH (5.0-7.5) 03/16/20 15:56 Ur Specific [place] 1.020 (1.002-1.030) 03/16/20 15:56 Urine Protein NEGATIVE mg/dL (NEGATIVE) 03/16/20 15:56 Urine Glucose (UA) NEGATIVE mg/dL (NEGATIVE) 03/16/20 15:56 Urine Ketones NEGATIVE mg/dL (NEGATIVE) 03/16/20 15:56 Urine Occult Blood NEGATIVE (NEGATIVE) 03/16/20 15:56 Urine Nitrite NEGATIVE (NEGATIVE) 03/16/20 15:56 Urine Bilirubin NEGATIVE (NEGATIVE) 03/16/20 15:56 Urine Urobilinogen 0.2 (NORMAL) E.U./dL (NORMAL) 03/16/20 15:56 Ur Leukocyte Esterase SMALL (NEGATIVE) H 03/16/20 15:56 Urine RBC 0-5 /HPF (0-5) 03/16/20 15:56 Urine WBC 11-25 /HPF (0-5) H 03/16/20 15:56 Ur Squamous Epith Cells NONE SEEN (<= Few) 03/16/20 15:56 Urine Bacteria Moderate /HPF (None Seen) H 03/16/20 15:56 Ur Microscopic Review INDICATED 03/16/20 15:56 Urine Culture Comments INDICATED 03/16/20 15:56 Urine Sodium < 12.0 mmol/L 03/16/20 15:56 Urine HCG, Qual NEGATIVE 03/16/20 15:56 Nasal Screen MRSA (PCR) NEGATIVE (NEGATIVE) 03/16/20 15:30 Urine Opiates Screen NEGATIVE (NEGATIVE) 03/16/20 15:56 Ur Oxycodone Screen NEGATIVE (NEGATIVE) 03/16/20 15:56 Urine Methadone Screen NEGATIVE (NEGATIVE) 03/16/20 15:56 Ur Propoxyphene Screen NEGATIVE (NEGATIVE) 03/16/20 15:56 Ur Barbiturates Screen NEGATIVE (NEGATIVE) 03/16/20 15:56 Ur Tricyclics Screen NEGATIVE (NEGATIVE) 03/16/20 15:56 Ur Phencyclidine Scrn NEGATIVE (NEGATIVE) 03/16/20 15:56 Ur Amphetamine Screen NEGATIVE (NEGATIVE) 03/16/20 15:56 U Methamphetamines Scrn NEGATIVE (NEGATIVE) 03/16/20 15:56 U Benzodiazepines Scrn NEGATIVE (NEGATIVE) 03/16/20 15:56 Urine Cocaine Screen NEGATIVE (NEGATIVE) 03/16/20 15:56 U Cannabinoids Screen NEGATIVE (NEGATIVE) 03/16/20 15:56 Ethyl Alcohol < 5.0 mg/dL 03/17/20 05:05
[2020-03-17] MEDS: SODIUM CHLORIDE FLUSH 0.9% 10 ML SYRINGE IVP PRN ×6 (08:49→17:55)
[2020-03-17] MEDS: FAMOTIDINE 20 MG/2 ML SYRINGE IVP SCH ×2 (09:08→20:48)
[2020-03-17] MEDS ORDERED: SODIUM CHLORIDE 0.65% NASAL SPRAY NAS PRN (10:27)
[2020-03-17] MEDS ORDERED: ALBUTEROL 1 PUFF INH STA (10:27)
[2020-03-17 11:05] LABS: VBG PH 7.505 (7.31-7.41)
[2020-03-17] MEDS: CHLORHEXIDINE GLUCONATE 15 ML UDC PO SCH ×2 (11:13→20:48)
[2020-03-17] MEDS ORDERED: ALBUTEROL 1 PUFF INH PRN (11:41)
[2020-03-17] MEDS: NYSTATIN CREAM 15 GM TUBE TOP SCH ×2 (12:40→20:52)
[2020-03-17] MEDS: ARNICA TOP PRN ×2 (12:41→20:52)
[2020-03-17] MEDS: CALCIUM CITRATE 250 MG TABLET PO SCH ×3 (12:57→21:02)
[2020-03-17] MEDS: IBUPROFEN 600 MG TABLET PO PRN ×2 (12:57→20:47)
[2020-03-17] MEDS: NS W/20 MEQ KCL 1,000 ML IV SCH (12:59)
[2020-03-17] MEDS ORDERED: SUCRALFATE 1 GM/10 ML UDC PO PRN (13:59)
[2020-03-17] MEDS ORDERED: DEXTROSE 5% 1,000 ML IV SCH (14:00)
[2020-03-17] MEDS ORDERED: DESMOPRESSIN 2 MCG in SODIUM CHLORIDE 0.9% 50 ML IV SCH (14:45)
[2020-03-17] MEDS: DESMOPRESSIN 1 MCG in SODIUM CHLORIDE 0.9% 50 ML IV SCH ×2 (14:45→15:31)
[2020-03-17] MEDS ORDERED: DESMOPRESSIN 1 MCG in SODIUM CHLORIDE 0.9% 50 ML IV SCH (15:00)
[2020-03-17] MEDS: AMOX/CLAV 875 MG/125 MG TABLET PO SCH ×2 (15:48→20:47)
[2020-03-17] MEDS ORDERED: POTASSIUM CHLORIDE 20 MEQ TABLET PO SCH (15:55)
[2020-03-18] MEDS: DEXTROSE 5% 1,000 ML IV SCH ×3 (01:50→21:12)
[2020-03-18] MEDS: SODIUM CHLORIDE FLUSH 0.9% 10 ML SYRINGE IVP SCH ×4 (01:52→17:44)
[2020-03-18 04:38] LABS: BASOPHILS % (AUTO) 0.5 %; EOSINOPHILS % (AUTO) 0.4 %; HGB - HEMOGLOBIN 7.6 g/dL (12.0-16.0); LYMPHOCYTES # (AUTO) 1.6 10^3/uL (1.5-3.5); LYMPHOCYTES % (AUTO) 21.3 %; MEAN CORPUSCULAR HEMOGLOBIN 32.9 pg (27.0-31.0); MEAN CORPUSCULAR VOLUME 99.6 fL (81.0-99.0); MEAN PLATELET VOLUME 9.8 fL (7.9-10.8); MONOCYTES # (AUTO) 0.5 10^3/uL (0.0-1.0); MONOCYTES % (AUTO) 6.5 %; NEUTROPHILS # (AUTO) 5.2 10^3/uL (1.5-6.6); PLT - PLATELET COUNT 190 10^3/uL (130-450); RED BLOOD COUNT 2.31 10^6/uL (4.20-5.40); RED CELL DISTRIBUTION WIDTH 17.1 % (12.0-15.0); WHITE BLOOD COUNT 7.4 x10^3/uL (4.8-10.8)
[2020-03-18 04:43] LABS: INR 1.1 (0.8-1.2); PT - PROTHROMBIN TIME 12.6 secs (9.9-12.6)
[2020-03-18 04:52] LABS: ALBUMIN 2.4 g/dL (3.2-5.5); ALBUMIN/GLOBULIN RATIO 0.9 (1.0-2.2); BILIRUBIN,TOTAL 0.8 mg/dL (0.2-1.0); CALCIUM 7.6 mg/dL (8.5-10.3); CREATININE 0.6 mg/dL (0.4-1.0); PHOSPHORUS 1.7 mg/dL (2.5-4.6); TOTAL PROTEIN 5.2 g/dL (6.7-8.2)
[2020-03-18] MEDS: CALCIUM CITRATE 250 MG TABLET PO SCH (08:20)
[2020-03-18] MEDS: FAMOTIDINE 20 MG/2 ML SYRINGE IVP SCH ×2 (08:21→21:09)
[2020-03-18] MEDS: CHLORHEXIDINE GLUCONATE 15 ML UDC PO SCH ×2 (08:21→21:09)
[2020-03-18] MEDS: NICOTINE 14 MG PATCH TOP SCH (08:21)
[2020-03-18] MEDS: NEUTRA-PHOS 250 MG TABLET PO SCH ×2 (08:21→10:14)
[2020-03-18] MEDS: THIAMINE 100 MG TABLET PO SCH (09:14)
[2020-03-18] MEDS: NYSTATIN CREAM 15 GM TUBE TOP SCH ×2 (11:00→21:11)
--- NOTE | 2020-03-18 15:58 | PROVIDER PROGRESS NOTE ---
Assessment/Plan - Problem List (1) E. coli UTI Assessment/Plan: The urine is growing E. coli. She has no elevated white blood count or fever. She was ordered to start Augmentin, for the skin inflammation of the facial piercings, which could be continued for this E. coli since it is pansensitive. The Augmentin however was discontinued last evening by the Armature Coil Winder, due to flushing, therefore a possible rash/ allergy. Will resume antibiotic po, since she is not N/V, using Keflex. (2) Hyponatremia Assessment/Plan: After the rapid increase of sodium yesterday afternoon to 122, iv Desmopressin and D5W were started, and IV saline stopped, and she again has a slowly rising serum sodium, which is being followed every 6-12 hours. Remain in the ICU today, poss out of ICU and [facility] tomorrow. (3) Inflammation associated with voluntary body piercing Assessment/Plan: Patient was complaining of mouth pain. The skin at the site of facial piercing in the R cheek is reddened. Ordered the piercings removed. Ordered wipe topically with alcohol pads. Ordered clean internally with Peridex swish and spit. Augmentin was started but she develpoed flusing therefore maybe an allergic reaction. Will start Keflex (for this and UTI). (4) Alcoholic hepatitis Assessment/Plan: LFTs improving daily since she has not had alcohol po for about 5 days. (5) Alcohol abuse Assessment/Plan: LFTs are improving. INR has corrected from 1.4-1.0. Ammonia level has never been elevated, no need for lactulose. Will need a Social Work consult when medically stabilized, regarding alcohol abuse management. (6) Anemia Assessment/Plan: The admission hemoglobin was 9.7, has dropped to 7.6 with IV fluids. She is hemodiluted, is currently 2L pos in fluid balance since admission. Guaiac of stool was blank. Her iron panel shows adequate iron level and percent saturation. Would transfuse if hemoglobin below 7 Follow CBC daily. (7) Allergic reaction to Augmentin Assessment/Plan: She got flushing/redness. The Augmentin was stopped by Armature Coil Winder. We will add Augmentin to her allergy list. (8) Hypokalemia Assessment/Plan: Resolved with replacement. - Current Meds Current Meds: Current Medications Generic Name Dose Route Start Last Admin Trade Name Freq PRN Reason Stop Dose Admin Chlorhexidine Gluconate 15 ml 03/17/20 09:00 03/18/20 08:21 Peridex PO 15 ml BID EDISON Administration Diphenhydramine HCl 25 mg 03/17/20 00:06 03/17/20 23:59 Benadryl PO 25 mg QPM PRN Administration Insomnia Famotidine 20 mg 03/16/20 21:00 03/18/20 08:21 Pepcid IVP 20 mg BID EDISON Administration Dextrose 1,000 mls @ 125 mls/hr 03/18/20 01:43 03/18/20 13:23 D5w IV Infused .Q8H EDISON Infusion Ibuprofen 600 mg 03/17/20 11:53 03/17/20 20:47 Motrin PO 600 mg Q6HR PRN Administration HEADACHE Nicotine 1 patch 03/16/20 14:59 03/18/20 08:21 Nicoderm TOP 1 patch DAILY EDISON Administration Non-Formulary Medication 1 applic 03/17/20 10:41 03/17/20 20:52 Arnica Gel TOP 1 applic TID PRN Administration PAIN Nystatin 1 applic 03/17/20 11:00 03/18/20 11:00 Mycostatin Cream TOP 1 applic BID EDISON Administration Phenol/Menthol 1 sprays 03/16/20 21:14 03/16/20 21:24 Chloraseptic MM 1 sprays Q4HR PRN Administration Mouth Sore Pain Sodium Chloride 10 ml 03/16/20 17:00 03/18/20 08:21 Normal Saline Flush 0.9% IVP 10 ml 0100,0900,1700 EDISON Administration Sodium Chloride 10 ml 03/16/20 14:44 03/17/20 17:55 Normal Saline Flush 0.9% IVP 20 ml PRN PRN Administration NEEDED PER PROVIDER ORDERS Sodium Chloride 2 sprays 03/17/20 10:27 03/17/20 13:02 [place] ANDRE 2 sprays Q4HR PRN Administration Nasal Congestion Sucralfate 1 gm 03/17/20 13:59 03/17/20 15:48 Carafate PO 1 gm 0700,1100,1600 PRN Administration INDIGESTION Thiamine HCl 100 mg 03/18/20 09:00 03/18/20 09:14 Vitamin B-1 PO 100 mg DAILY EDISON Administration - Lab Result Fish Bone Diagrams: 03/18/20 04:20 03/18/20 12:02 - Additional Planning My Orders: My Active Orders 03/18/20 09:00 Thiamine [Vitamin B-1] 100 mg PO DAILY 03/19/20 05:00 CBC - COMP BLD CT W/AUTO DIFF [HEME] DAILYLAB COMPREHENSIVE METABOLIC PANEL [CHEM] DAILYLAB MAGNESIUM [CHEM] DAILYLAB PHOSPHORUS [CHEM] DAILYLAB 03/20/20 05:00 CBC - COMP BLD CT W/AUTO DIFF [HEME] DAILYLAB COMPREHENSIVE METABOLIC PANEL [CHEM] DAILYLAB MAGNESIUM [CHEM] DAILYLAB PHOSPHORUS [CHEM] DAILYLAB Subjective - Subjective Patient Reports: Resting Comfortably, No Complaints Objective Vital Signs: Vital Signs - 24 hr 03/17/20 03/17/20 03/17/20 17:00 18:00 19:00 Temperature Heart Rate [ 86 87 93 Monitoring electrodes] Respiratory 21 26 H 20 Rate Blood Pressure 110/73 107/73 110/72 [Left Brachial artery] O2 Saturation 98 99 100 03/17/20 03/17/20 03/18/20 21:00 23:00 01:00 Temperature 36.7 C Heart Rate [ 86 91 92 Monitoring electrodes] Respiratory 30 H 19 20 Rate Blood Pressure 110/87 H 104/80 116/89 H [Left Brachial artery] O2 Saturation 100 100 96 03/18/20 03/18/20 03/18/20 03:00 05:00 07:00 Temperature Heart Rate [ 86 78 75 Monitoring electrodes] Respiratory 15 15 16 Rate Blood Pressure 102/71 100/74 101/71 [Left Brachial artery] O2 Saturation 93 95 94 03/18/20 03/18/20 03/18/20 09:00 11:00 12:00 Temperature Heart Rate [ 78 79 78 Monitoring electrodes] Respiratory 25 H 26 H 17 Rate Blood Pressure 110/84 H 106/84 H [Left Brachial artery] O2 Saturation 100 100 03/18/20 03/18/20 13:00 15:00 Temperature Heart Rate [ 79 86 Monitoring electrodes] Respiratory 26 H 17 Rate Blood Pressure 115/90 H 116/92 H [Left Brachial artery] O2 Saturation 100 Oxygen O2 Source Room air I&O (Last 24 Hrs): Intake and Output Totals x24h 06/16/20 06/17/20 06/18/20 23:59 23:59 23:59 Intake Total 6608.405 6609.033 2763 Output Total 978 8068 2230 Balance 101.952 2094.033 533 General: Alert, Other (Speech is slow but everything is appropriate) HEENT: Other (The 2 piercings are out of both cheeks, the right one still has the localized redness with less swelling, the left has a trace of redness at the piercing site. She did not take the piercing out of her right chin below the lip.) Neck: Supple Neuro: Alert, Non Focal Cardiovascular: Regular rate Respiratory: No respiratory distress Abdomen: Soft Extremities: No edema - Results Results: Laboratory Results WBC 7.4 x10^3/uL (4.8-10.8) 03/18/20 04:20 RBC 2.31 10^6/uL (4.20-5.40) L 03/18/20 04:20 Hgb 7.6 g/dL (12.0-16.0) L 03/18/20 04:20 Hct 23.0 % (37.0-47.0) L 03/18/20 04:20 MCV 99.6 fL (81.0-99.0) H 03/18/20 04:20 MCH 32.9 pg (27.0-31.0) H 03/18/20 04:20 MCHC 33.0 g/dL (32.0-36.0) 03/18/20 04:20 RDW 17.1 % (12.0-15.0) H 03/18/20 04:20 Plt Count 190 10^3/uL (130-450) 03/18/20 04:20 MPV 9.8 fL (7.9-10.8) 03/18/20 04:20 Neut # (Auto) 5.2 10^3/uL (1.5-6.6) 03/18/20 04:20 Lymph # (Auto) 1.6 10^3/uL (1.5-3.5) 03/18/20 04:20 [place] # (Auto) 0.5 10^3/uL (0.0-1.0) 03/18/20 04:20 Eos # (Auto) 0.0 10^3/uL (0.0-0.7) 03/18/20 04:20 Baso # (Auto) 0.0 10^3/uL (0.0-0.1) 03/18/20 04:20 Absolute Nucleated RBC 0.03 x10^3/uL 03/18/20 04:20 Nucleated RBC % 0.4 /100WBC 03/18/20 04:20 PT 12.6 secs (9.9-12.6) 03/18/20 04:20 INR 1.1 (0.8-1.2) 03/18/20 04:20 VBG pH 7.505 (7.31-7.41) H 03/17/20 10:50 Ionized Calcium 1.08 mmol/L (1.15-1.33) L 03/17/20 10:50 Sodium 126 mmol/L (135-145) L 03/18/20 12:02 Potassium 3.6 mmol/L (3.5-5.0) 03/18/20 04:20 Chloride 88 mmol/L (101-111) L 03/18/20 04:20 Carbon Dioxide 25 mmol/L (21-32) 03/18/20 04:20 Anion Gap 10.0 (6-13) 03/18/20 04:20 BUN 5 mg/dL (6-20) L 03/18/20 04:20 Creatinine 0.6 mg/dL (0.4-1.0) 03/18/20 04:20 Estimated GFR (MDRD) 121 (>89) 03/18/20 04:20 Glucose 84 mg/dL (70-100) 03/18/20 04:20 Calcium 7.6 mg/dL (8.5-10.3) L 03/18/20 04:20 Phosphorus 1.7 mg/dL (2.5-4.6) L 03/18/20 04:20 Magnesium 2.0 mg/dL (1.7-2.8) 03/18/20 04:20 Iron 90 ug/dL (28-170) 03/17/20 05:05 TIBC 162 ug/dL (250-450) L 03/17/20 05:05 % Saturation 55 % (20-50) H 03/17/20 05:05 Transferrin 116 mg/dL (192-382) L 03/17/20 05:05 Total Bilirubin 0.8 mg/dL (0.2-1.0) 03/18/20 04:20 AST 94 IU/L (10-42) H 03/18/20 04:20 ALT 37 IU/L (10-60) 03/18/20 04:20 Alkaline Phosphatase 113 IU/L (42-121) 03/18/20 04:20 Ammonia 17.8 umol/L (7-35) 03/18/20 04:20 Total Protein 5.2 g/dL (6.7-8.2) L 03/18/20 04:20 Albumin 2.4 g/dL (3.2-5.5) L 03/18/20 04:20 Globulin 2.8 g/dL (2.1-4.2) 03/18/20 04:20 Albumin/Globulin Ratio 0.9 (1.0-2.2) L 03/18/20 04:20 Lipase 31 U/L (22-51) 03/16/20 13:45 Vitamin B12 2023 pg/mL (180-914) H 03/17/20 05:05 Folate 22.21 ng/mL (5.90 - >24.8) 03/17/20 05:05 TSH 2.02 uIU/mL (0.34-5.60) 03/16/20 20:28 Cortisol AM Sample 8.4 ug/dL 03/17/20 05:05 Urine Color DARK YELLOW 03/16/20 15:56 Urine Clarity HAZY (CLEAR) 03/16/20 15:56 Urine pH 6.0 PH (5.0-7.5) 03/16/20 15:56 Ur Specific [place] 1.020 (1.002-1.030) 03/16/20 15:56 Urine Protein NEGATIVE mg/dL (NEGATIVE) 03/16/20 15:56 Urine Glucose (UA) NEGATIVE mg/dL (NEGATIVE) 03/16/20 15:56 Urine Ketones NEGATIVE mg/dL (NEGATIVE) 03/16/20 15:56 Urine Occult Blood NEGATIVE (NEGATIVE) 03/16/20 15:56 Urine Nitrite NEGATIVE (NEGATIVE) 03/16/20 15:56 Urine Bilirubin NEGATIVE (NEGATIVE) 03/16/20 15:56 Urine Urobilinogen 0.2 (NORMAL) E.U./dL (NORMAL) 03/16/20 15:56 Ur Leukocyte Esterase SMALL (NEGATIVE) H 03/16/20 15:56 Urine RBC 0-5 /HPF (0-5) 03/16/20 15:56 Urine WBC 11-25 /HPF (0-5) H 03/16/20 15:56 Ur Squamous Epith Cells NONE SEEN (<= Few) 03/16/20 15:56 Urine Bacteria Moderate /HPF (None Seen) H 03/16/20 15:56 Ur Microscopic Review INDICATED 03/16/20 15:56 Urine Culture Comments INDICATED 03/16/20 15:56 Urine Sodium < 12.0 mmol/L 03/17/20 14:20 Urine HCG, Qual NEGATIVE 03/16/20 15:56 Nasal Screen MRSA (PCR) NEGATIVE (NEGATIVE) 03/16/20 15:30 Urine Opiates Screen NEGATIVE (NEGATIVE) 03/16/20 15:56 Ur Oxycodone Screen NEGATIVE (NEGATIVE) 03/16/20 15:56 Urine Methadone Screen NEGATIVE (NEGATIVE) 03/16/20 15:56 Ur Propoxyphene Screen NEGATIVE (NEGATIVE) 03/16/20 15:56 Ur Barbiturates Screen NEGATIVE (NEGATIVE) 03/16/20 15:56 Ur Tricyclics Screen NEGATIVE (NEGATIVE) 03/16/20 15:56 Ur Phencyclidine Scrn NEGATIVE (NEGATIVE) 03/16/20 15:56 Ur Amphetamine Screen NEGATIVE (NEGATIVE) 03/16/20 15:56 U Methamphetamines Scrn NEGATIVE (NEGATIVE) 03/16/20 15:56 U Benzodiazepines Scrn NEGATIVE (NEGATIVE) 03/16/20 15:56 Urine Cocaine Screen NEGATIVE (NEGATIVE) 03/16/20 15:56 U Cannabinoids Screen NEGATIVE (NEGATIVE) 03/16/20 15:56 Ethyl Alcohol < 5.0 mg/dL 03/17/20 05:05
[2020-03-18] MEDS: cephALEXin 250 MG CAPSULE PO SCH ×2 (17:39→23:36)
[2020-03-18] MEDS ORDERED: AMOX/CLAV 875 MG/125 MG TABLET PO SCH (21:00)
[2020-03-18] MEDS: IBUPROFEN 600 MG TABLET PO PRN (23:22)
[2020-03-18] MEDS: ARNICA TOP PRN (23:36)
[2020-03-18] MEDS: diphenhydrAMINE 25 MG CAPSULE PO PRN (23:36)
[2020-03-19] MEDS: oxyCODONE 5 MG TABLET PO PRN ×2 (00:20→02:15)
[2020-03-19] MEDS: SODIUM CHLORIDE FLUSH 0.9% 10 ML SYRINGE IVP SCH ×4 (00:21→23:59)
[2020-03-19] MEDS: SODIUM CHLORIDE FLUSH 0.9% 10 ML SYRINGE IVP PRN ×3 (02:15→23:59)
[2020-03-19] MEDS: DEXTROSE 5% 1,000 ML IV SCH (04:59)
[2020-03-19 05:19] LABS: BASOPHILS % (AUTO) 0.4 %; EOSINOPHILS # (AUTO) 0.1 10^3/uL (0.0-0.7); EOSINOPHILS % (AUTO) 0.7 %; HGB - HEMOGLOBIN 8.2 g/dL (12.0-16.0); LYMPHOCYTES # (AUTO) 1.7 10^3/uL (1.5-3.5); LYMPHOCYTES % (AUTO) 16.3 %; MEAN CORPUSCULAR HEMOGLOBIN 34.3 pg (27.0-31.0); MEAN CORPUSCULAR HGB CONC 32.5 g/dL (32.0-36.0); MEAN CORPUSCULAR VOLUME 105.4 fL (81.0-99.0); MEAN PLATELET VOLUME 9.2 fL (7.9-10.8); MONOCYTES # (AUTO) 0.7 10^3/uL (0.0-1.0); MONOCYTES % (AUTO) 6.2 %; NEUTROPHILS # (AUTO) 7.7 10^3/uL (1.5-6.6); NEUTROPHILS % (AUTO) 73.4 %; PLT - PLATELET COUNT 237 10^3/uL (130-450); RED BLOOD COUNT 2.39 10^6/uL (4.20-5.40); RED CELL DISTRIBUTION WIDTH 17.8 % (12.0-15.0); WHITE BLOOD COUNT 10.4 x10^3/uL (4.8-10.8)
[2020-03-19 05:21] LABS: VBG PH 7.439 (7.31-7.41)
[2020-03-19 05:42] LABS: ALBUMIN 2.7 g/dL (3.2-5.5); ALBUMIN/GLOBULIN RATIO 0.9 (1.0-2.2); ALKALINE PHOSPHATASE 128 IU/L (42-121); ALT ALANINE AMINOTRANSFERASE 44 IU/L (10-60); AST ASPARTATE AMINOTRANSFERASE 103 IU/L (10-42); BILIRUBIN,TOTAL 0.8 mg/dL (0.2-1.0); BUN - BLOOD UREA NITROGEN < 5 mg/dL (6-20); CALCIUM 7.7 mg/dL (8.5-10.3); CARBON DIOXIDE - CO2 25 mmol/L (21-32); CHLORIDE 97 mmol/L (101-111); CREATININE 0.5 mg/dL (0.4-1.0); GLUCOSE 105 mg/dL (70-100); MAGNESIUM 1.9 mg/dL (1.7-2.8); PHOSPHORUS 1.7 mg/dL (2.5-4.6); SODIUM 131 mmol/L (135-145); TOTAL PROTEIN 5.6 g/dL (6.7-8.2)
[2020-03-19] MEDS: cephALEXin 250 MG CAPSULE PO SCH ×4 (06:32→23:59)
[2020-03-19] MEDS: NICOTINE 14 MG PATCH TOP SCH (09:44)
[2020-03-19] MEDS: CHLORHEXIDINE GLUCONATE 15 ML UDC PO SCH ×2 (09:44→21:57)
[2020-03-19] MEDS: MULTIVITAMIN TABLET PO SCH (09:45)
--- NOTE | 2020-03-19 09:45 | PROVIDER PROGRESS NOTE ---
Subjective - Prog Note Date Prog Note Date: 03/19/20 - Subjective Subjective: She reports feeling better today. Denies any chest pain, dyspnea. Reports no nausea, vomiting. Denies any dysuria, urgency. Current Medications - Current Medications Current Medications: Active Medications Albuterol (Mdi: Albuterol) 2 puffs INH QID PRN PRN Reason: Shortness of Air/Wheezing Cephalexin (Keflex) 250 mg PO Q6HR [facility] Last Admin: 03/19/20 06:32 Dose: 250 mg Documented by: Chlorhexidine Gluconate (Peridex) 15 ml PO BID [facility] Last Admin: 03/19/20 09:44 Dose: 15 ml Documented by: Ibuprofen (Motrin) 600 mg PO Q6HR PRN PRN Reason: HEADACHE Last Admin: 03/18/20 23:22 Dose: 600 mg Documented by: Lorazepam (Ativan Inj (Vial)) 1 mg IVP Q30M PRN; Protocol PRN Reason: CIWA >8 Last Admin: 03/19/20 02:14 Dose: 1 mg Documented by: Multivitamins (Theragran) 1 tab PO DAILYWM [facility] Last Admin: 03/19/20 09:45 Dose: 1 tab Documented by: Nicotine (Nicoderm) 1 patch TOP DAILY [facility] Last Admin: 03/19/20 09:44 Dose: 1 patch Documented by: Non-Formulary Medication (Arnica Gel) 1 applic TOP TID PRN PRN Reason: PAIN Last Admin: 03/18/20 23:36 Dose: 1 applic Documented by: Nystatin (Mycostatin Cream) 1 applic TOP BID [facility] Last Admin: 03/18/20 21:11 Dose: 1 applic Documented by: Ondansetron HCl (Zofran Inj) 4 mg IVP Q6HR PRN PRN Reason: Nausea / Vomiting Pantoprazole Sodium (Protonix) 40 mg PO QDAC [facility] Last Admin: 03/19/20 09:46 Dose: 40 mg Documented by: Phenol/Menthol (Chloraseptic) 1 sprays MM Q4HR PRN PRN Reason: Mouth Sore Pain Last Admin: 03/16/20 21:24 Dose: 1 sprays Documented by: Prochlorperazine Edisylate (Compazine Inj) 10 mg IVP Q6HR PRN PRN Reason: Nausea / Vomiting Last Admin: 03/19/20 00:20 Dose: 10 mg Documented by: Sodium Chloride (Normal Saline Flush 0.9%) 10 ml IVP 0100,0900,1700 [facility] Last Admin: 03/19/20 00:21 Dose: 10 ml Documented by: Sodium Chloride (Normal Saline Flush 0.9%) 10 ml IVP PRN PRN PRN Reason: NEEDED PER PROVIDER ORDERS Last Admin: 03/19/20 04:51 Dose: 20 ml Documented by: Sodium Chloride ([place]) 2 sprays ANDRE Q4HR PRN PRN Reason: Nasal Congestion Last Admin: 03/17/20 13:02 Dose: 2 sprays Documented by: Sucralfate (Carafate) 1 gm PO 0700,1100,1600 PRN PRN Reason: INDIGESTION Last Admin: 03/17/20 15:48 Dose: 1 gm Documented by: Thiamine HCl (Vitamin B-1) 100 mg PO DAILY [facility] Last Admin: 03/19/20 09:55 Dose: 100 mg Documented by: Medroxyprogesterone Acetate [Depo-Provera] 150 mg IM Q90D 03/16/20 Arnica Gel 1 applic TOP TID PRN 03/17/20 Objective - Vital Signs/Intake & Output Reviewed Vital Signs: Yes Vital Signs: Vital Signs Temp Pulse Resp BP Pulse Ox 03/19/20 09:00 98.1 C H 95 17 105/91 H 98 03/19/20 07:00 90 16 103/69 98 Intake & Output: Intake & Output 03/16/20 03/17/20 03/18/20 03/19/20 23:59 23:59 23:59 23:59 Intake Total 0775.559 4204.033 3083 1451.917 Output Total 970 3678 4020 2120 Balance 048.668 4243.033 -937 -668.083 - Objective General Appearance: positive: No acute distress, Alert Eyes Bilateral: positive: Normal inspection, Conjunctivae nml ENT: positive: ENT inspection nml, Other (Both cheek piercings have been removed and there is no erythema in the left cheek. The right cheek still has slight amount of localized erythema.) Neck: positive: Nml inspection Respiratory: positive: No respiratory distress. negative: Wheezes, Rales, Rhonchi Cardiovascular: positive: No murmur, Tachycardia. negative: Extrasystoles, Bradycardia, Systolic murmur Abdomen: positive: Non-tender, No distention. negative: Tenderness, Guarding, Rebound Skin: positive: Warm, Dry Extremities: positive: Full ROM, No pedal edema Neurologic/Psychiatric: positive: Oriented x3, Motor nml. negative: Disoriented to person, Disoriented to place, Disoriented to time - Lab Results Fish Bones: 03/19/20 04:52 03/19/20 04:52 Other Labs: Lab Results x24hrs 03/19/20 03/19/20 03/19/20 Range/Units 04:52 04:52 04:52 WBC 10.4 (4.8-10.8) x10^3/uL RBC 2.39 L (4.20-5.40) 10^6/uL Hgb 8.2 L (12.0-16.0) g/dL Hct 25.2 L (37.0-47.0) % MCV 105.4 H (81.0-99.0) fL MCH 34.3 H (27.0-31.0) pg MCHC 32.5 (32.0-36.0) g/dL RDW 17.8 H (12.0-15.0) % Plt Count 237 (130-450) 10^3/uL MPV 9.2 (7.9-10.8) fL Neut # (Auto) 7.7 H (1.5-6.6) 10^3/uL Lymph # (Auto) 1.7 (1.5-3.5) 10^3/uL [place] # (Auto) 0.7 (0.0-1.0) 10^3/uL Eos # (Auto) 0.1 (0.0-0.7) 10^3/uL Baso # (Auto) 0.0 (0.0-0.1) 10^3/uL Absolute Nucleated RBC 0.03 x10^3/uL Nucleated RBC % 0.3 /100WBC VBG pH 7.439 H (7.31-7.41) Ionized Calcium 1.09 L (1.15-1.33) mmol/L Sodium 131 L (135-145) mmol/L Potassium 3.6 (3.5-5.0) mmol/L Chloride 97 L (101-111) mmol/L Carbon Dioxide 25 (21-32) mmol/L Anion Gap 9.0 (6-13) BUN < 5 L (6-20) mg/dL Creatinine 0.5 (0.4-1.0) mg/dL Estimated GFR (MDRD) 149 (>89) Glucose 105 H (70-100) mg/dL Calcium 7.7 L (8.5-10.3) mg/dL Phosphorus 1.7 L (2.5-4.6) mg/dL Magnesium 1.9 (1.7-2.8) mg/dL Total Bilirubin 0.8 (0.2-1.0) mg/dL AST 103 H (10-42) IU/L ALT 44 (10-60) IU/L Alkaline Phosphatase 128 H (42-121) IU/L Total Protein 5.6 L (6.7-8.2) g/dL Albumin 2.7 L (3.2-5.5) g/dL Globulin 2.9 (2.1-4.2) g/dL Albumin/Globulin Ratio 0.9 L (1.0-2.2) Urine Osmolality (50-1200) mOsm/kg 03/18/20 03/16/20 Range/Units 12:02 15:56 WBC (4.8-10.8) x10^3/uL RBC (4.20-5.40) 10^6/uL Hgb (12.0-16.0) g/dL Hct (37.0-47.0) % MCV (81.0-99.0) fL MCH (27.0-31.0) pg MCHC (32.0-36.0) g/dL RDW (12.0-15.0) % Plt Count (130-450) 10^3/uL MPV (7.9-10.8) fL Neut # (Auto) (1.5-6.6) 10^3/uL Lymph # (Auto) (1.5-3.5) 10^3/uL [place] # (Auto) (0.0-1.0) 10^3/uL Eos # (Auto) (0.0-0.7) 10^3/uL Baso # (Auto) (0.0-0.1) 10^3/uL Absolute Nucleated RBC x10^3/uL Nucleated RBC % /100WBC VBG pH (7.31-7.41) Ionized Calcium (1.15-1.33) mmol/L Sodium 126 L (135-145) mmol/L Potassium (3.5-5.0) mmol/L Chloride (101-111) mmol/L Carbon Dioxide (21-32) mmol/L Anion Gap (6-13) BUN (6-20) mg/dL Creatinine (0.4-1.0) mg/dL Estimated GFR (MDRD) (>89) Glucose (70-100) mg/dL Calcium (8.5-10.3) mg/dL Phosphorus (2.5-4.6) mg/dL Magnesium (1.7-2.8) mg/dL Total Bilirubin (0.2-1.0) mg/dL AST (10-42) IU/L ALT (10-60) IU/L Alkaline Phosphatase (42-121) IU/L Total Protein (6.7-8.2) g/dL Albumin (3.2-5.5) g/dL Globulin (2.1-4.2) g/dL Albumin/Globulin Ratio (1.0-2.2) Urine Osmolality 433 (50-1200) mOsm/kg Assessment/Plan - Problem List (1) Hyponatremia Impression: She presented with a sodium of 104 which was felt to be hypovolemic hyponatremia. She was treated with IV fluids. She was initially correcting slowly but had a rapid increase on March 17 from 107 to 121 over 7 hours. She was administered desmopressin and started on D5 water. Her sodium did not improve and remained at 122 for the next 24 hours. Her D5 water was increased but despite this, her sodium continued to rise slowly. It has not been correcting appropriately over the past 24 hours and today it is 131. She shows no evidence of osmotic demyelination syndrome on exam although this can present up to one week later. For the time being, we will discontinue the D5 water and continue to monitor her sodium overnight. If it is stable tomorrow, she can likely be discharged home. Transfer to [facility] status today. (2) Alcohol abuse Impression: She has shown no evidence of withdrawal during this hospitalization. Once again, discussed the importance of alcohol cessation. (3) Alcoholic hepatitis Impression: LFT's are stable with AST greater than ALT. This is secondary to her alcohol abuse. Fortunately, there is no evidence of cirrhosis at this time. Once again, discussed with her the importance of alcohol cessation. Her mother was also present in the room. (4) Anemia Impression: This is likely multifactorial and secondary to her acute illness as well as hemo-dilutional. Her stool was negative for blood. Her iron studies were not suggestive of iron deficiency anemia. Her hemoglobin has improved today. Continue to monitor while hospitalized. (5) E. coli UTI Impression: Urine culture is growing E. coli that is pansensitive. Suspect this is likely simple cystitis. We will continue her on Keflex with today being day 2. We will treat for 5 days. (6) Inflammation associated with voluntary body piercing Impression: This has improved since the piercings were removed. She is also on Keflex for the urinary tract infection which would cover any possible cellulitis although the infection appears to be localized and should resolve given the piercings were removed.
[2020-03-19] MEDS: PANTOPRAZOLE 40 MG TABLET PO SCH (09:46)
[2020-03-19] MEDS: NEUTRA-PHOS 250 MG TABLET PO SCH ×2 (09:46→12:08)
[2020-03-19] MEDS: THIAMINE 100 MG TABLET PO SCH (09:55)
[2020-03-19] MEDS: NYSTATIN CREAM 15 GM TUBE TOP SCH ×2 (12:54→21:57)
[2020-03-19] MEDS: ARNICA TOP PRN (21:57)
[2020-03-19] MEDS ORDERED: traZODone 50 MG TABLET PO SCH (23:38)
[2020-03-20 06:10] LABS: BASOPHILS # (AUTO) 0.1 10^3/uL (0.0-0.1); BASOPHILS % (AUTO) 0.5 %; EOSINOPHILS # (AUTO) 0.1 10^3/uL (0.0-0.7); EOSINOPHILS % (AUTO) 1.1 %; HGB - HEMOGLOBIN 8.3 g/dL (12.0-16.0); LYMPHOCYTES # (AUTO) 2.6 10^3/uL (1.5-3.5); LYMPHOCYTES % (AUTO) 26.3 %; MEAN CORPUSCULAR HEMOGLOBIN 34.7 pg (27.0-31.0); MEAN CORPUSCULAR HGB CONC 31.9 g/dL (32.0-36.0); MEAN CORPUSCULAR VOLUME 108.8 fL (81.0-99.0); MEAN PLATELET VOLUME 9.7 fL (7.9-10.8); MONOCYTES # (AUTO) 1.1 10^3/uL (0.0-1.0); NEUTROPHILS # (AUTO) 5.5 10^3/uL (1.5-6.6); NEUTROPHILS % (AUTO) 56.4 %; PLT - PLATELET COUNT 290 10^3/uL (130-450); RED BLOOD COUNT 2.39 10^6/uL (4.20-5.40); WHITE BLOOD COUNT 9.7 x10^3/uL (4.8-10.8)
[2020-03-20 06:31] LABS: ALBUMIN 2.9 g/dL (3.2-5.5); ALBUMIN/GLOBULIN RATIO 0.9 (1.0-2.2); ALKALINE PHOSPHATASE 142 IU/L (42-121); ALT ALANINE AMINOTRANSFERASE 49 IU/L (10-60); AST ASPARTATE AMINOTRANSFERASE 108 IU/L (10-42); BILIRUBIN,TOTAL 0.4 mg/dL (0.2-1.0); BUN - BLOOD UREA NITROGEN < 5 mg/dL (6-20); CARBON DIOXIDE - CO2 25 mmol/L (21-32); CHLORIDE 105 mmol/L (101-111); CREATININE 0.6 mg/dL (0.4-1.0); GLUCOSE 95 mg/dL (70-100); MAGNESIUM 1.7 mg/dL (1.7-2.8); PHOSPHORUS 2.7 mg/dL (2.5-4.6); SODIUM 137 mmol/L (135-145); TOTAL PROTEIN 6.1 g/dL (6.7-8.2)
[2020-03-20] MEDS: cephALEXin 250 MG CAPSULE PO SCH (06:36)
[2020-03-20] MEDS: PANTOPRAZOLE 40 MG TABLET PO SCH (06:36)
--- NOTE | 2020-03-20 07:38 | Discharge Plan ---
Discharge Plan Problem Reviewed?: Yes Disposition: Home, Self Care Condition: Good Prescriptions: cephALEXin [Keflex] 250 mg PO Q6HR #11 capsule Pantoprazole [Protonix] 40 mg PO QDAC #30 tablet Multivitamin [Theragran] 1 tab PO DAILYWM #30 tablet Thiamine [Vitamin B-1] 100 mg PO DAILY #30 tablet Diet: Regular Activity Restrictions: Activity as Tolerated Health Concerns: You were seen in the hospital because of nausea and vomiting and found to have very low sodium levels in your body. This likely made you feel very sick and in addition to the alcohol you had been drinking. Your numbers improved with IV fluids. Your liver during this hospitalization showed signs of inflammation. It is important that you do not drink alcohol as if you continue to do so, this will continue to cause liver inflammation and can ultimately cause of liver failure. There was also concern that your cheek piercings were infected and so these were removed during this hospitalization. There was also concern that he may have had a urinary tract infection and so you were started on antibiotics. Please continue to take them as prescribed when you go home. Plan of Treatment: Please take the Keflex every 6 hours for 3 more days to complete treatment for the urinary tract infection. You have also been provided with Protonix which she can take daily. This is an acid suppression medication which can help for heartburn. You have also been provided with a prescription for a multivitamin and thiamine which is recommended you take daily. It is crucial that you stop drinking alcohol when you return home. Care Goals: Please stop drinking alcohol as your liver already show signs of inflammation. If you continue to drink alcohol, you can develop scarring of the liver which can lead to liver failure. You have been provided with resources and counselors to contact. It is encouraged that you do so. Assessment: Patient expressed understanding of the treatment plan. Additional Instructions or Follow Up instructions: Please follow-up with your primary care provider next week. No Smoking: If you smoke, Please STOP! Call for help. Follow-up with: Dorothea Meng PA [Primary Care Provider] -
[2020-03-20] MEDS: MULTIVITAMIN TABLET PO SCH (08:02)
[2020-03-20] MEDS: NICOTINE 14 MG PATCH TOP SCH (08:30)
[2020-03-20] MEDS: CHLORHEXIDINE GLUCONATE 15 ML UDC PO SCH (08:38)
[2020-03-20] MEDS: SODIUM CHLORIDE FLUSH 0.9% 10 ML SYRINGE IVP SCH (08:38)
[2020-03-20] MEDS: NYSTATIN CREAM 15 GM TUBE TOP SCH (08:39)
--- NOTE | 2020-03-20 08:54 | DISCHARGE SUMMARY ---
Discharge Summary Admit Date: 03/16/20 Discharge Date: 03/19/20 Discharging Provider: Valdez Padilla Primary Care Provider: Dorothea Meng Code Status: Attempt Resuscitation Condition at Discharge: Good Discharge Disposition: 01 Home, Self Care - DIAGNOSES Admission Diagnoses: Hyponatremia Hypokalemia Alcohol abuse Elevated liver function test Elevated INR Abnormal urinalysis, suspicious for UTI Tobacco abuse Anemia Prolonged QT interval Discharge Diagnoses with Status of Each Condition: Hyponatremia - resolved. Alcohol abuse - stable. Alcoholic hepatitis - stable. Anemia - improving. E. coli UTI - improving. Inflammation associated voluntary body piercing - improving. - HPI History of Present Illness: H&P per Phil on 03/16/20: This is a 24-year-old white female with a history of alcohol abuse, alcoholic pancreatitis in the past, hyponatremia in the past. She continues to drink alcohol and uses wine, about half of wine box daily. The patient started to have a cough without sputum production approximately 2 weeks ago. 3 days ago, she started to get nausea and vomiting, and stopped her alcohol intake and did not get "shaky." She was able to take breaths and water. Whenever she had a cough, this also promoted the vomiting. She was brought to the emergency room and noted very abnormal electrolytes and also was somewhat slow in answering. She is found to have a serum sodium of 104 and potassium of 1.8 is being admitted to the ICU for severe hypovolemic hyponatremia, with risk of overcorrection that would promote osmotic demyelination syndrome. - CONSULTS | PROCEDURES Consultations: Anesthesia, Social work. Procedures: She had a right central line catheter placed by anesthesia on March 16. - HOSPITAL COURSE Hospital Course: She was admitted to the intensive care unit for hyponatremia with a sodium of 104. This was felt to be hypovolemic hyponatremia. She was treated with IV saline and her sodium improved to 107 over the first 12 hours. She then had significant increase in her urine output and a repeat sodium was checked in the afternoon and it had increased to 122. Normal saline was discontinued and she was started on D5 water and given desmopressin. Despite these interventions, her sodium continue to increase to 122 where it was stable there for the following 24 hours. Her sodium continue to slowly increase over next 12 hours to 126. Desmopressin was then discontinued. Her sodium was checked the following day had improved to 131. The D5 water was discontinued as at this point her sodium has been correcting appropriately. The following day it increased to 137. She showed no evidence of osmotic demyelination syndrome during this hospitalization. Did discuss with the family to monitor for certain signs and symptoms at home and that if she develops symptoms of osmotic demyelination syndrome then she should return to the emergency department immediately. During this hospitalization, she was treated with a banana bag initially and changed to oral multivitamin and thiamine. She showed no evidence of alcohol withdrawal during this hospitalization. Her LFTs improved during his hospitalization and on discharge are stable with an AST in the 100s and ALT in the 40's. Discussed the importance of alcohol cessation given she is alcoholic hepatitis. The patient and mother expressed understanding of the importance of alcohol cessation. She was provided with resources. It was discussed with her that it is important she follow-up with her primary care provider to monitor her liver function tests. Also during this hospitalization, her urinalysis grew E. coli. She was treated with Keflex which she will continue for 3 more days to complete 5 days of therapy. She had no leukocytosis, fever and blood cultures were negative during this hospitalization. Also concerned that she may have had an infection of her cheek piercings bilaterally. His piercings were removed and the localized erythema has resolved. She was initially started on Augmentin for this but she developed facial erythema and rash and so this was discontinued. She does remain on Keflex for urinary tract infection and this would also cover any possible cellulitis although on discharge, there was no significant erythema of the bilateral cheeks. With regards to her anemia, this is felt to be multifactorial due to her acute illness as well as hemodilutional. Iron studies were not suggestive of iron deficiency anemia. Her hemoglobin has been improving and is 8.3 on discharge. It was 7.6 two days prior. Stool was negative for occult blood twice. It was encouraged she follow-up with her primary care provider on outpatient basis. - ALLERGIES Allergies/Adverse Reactions: Allergies Allergy/AdvReac Type Severity Reaction Status Date / Time amoxicillin [From Augmentin] Allergy FLUSHING,BL Verified 03/18/20 16:52 OTCHINESS clavulanic acid Allergy FLUSHING,BL Verified 03/18/20 16:52 [From Augmentin] OTCHINESS - MEDICATIONS Home Medications: Ambulatory Orders Medication Instructions Recorded Confirmed Medroxyprogesterone Acetate 150 mg IM Q90D 03/16/20 03/16/20 [Depo-Provera] Arnica Gel 1 applic TOP TID PRN 03/17/20 03/17/20 Multivitamin [Theragran] 1 tab PO DAILYWM #30 tablet 03/20/20 Pantoprazole [Protonix] 40 mg PO QDAC #30 tablet 03/20/20 Thiamine [Vitamin B-1] 100 mg PO DAILY #30 tablet 03/20/20 cephALEXin [Keflex] 250 mg PO Q6HR #11 capsule 03/20/20 - PHYSICAL EXAM AT DISCHARGE General Appearance: positive: No acute distress, Alert Eyes Bilateral: positive: Normal inspection ENT: positive: Other (Both cheek piercings have been removed. There is no erythema. No tenderness of the bilateral cheeks.) Neck: positive: Nml inspection Respiratory: positive: No respiratory distress. negative: Wheezes, Rales, Rhonchi Cardiovascular: positive: Regular rate & rhythm, No murmur. negative: Tachycardia, Bradycardia Abdomen: positive: No organomegaly, No distention. negative: Tenderness, Guarding, Rebound Skin: positive: Warm, Dry Extremities: positive: Full ROM, No pedal edema Neurologic/Psychiatric: positive: Oriented x3, Motor nml. negative: Disoriented to person, Disoriented to place, Disoriented to time Physical Exam Other/Comments: Vital Signs - 24 hr 03/19/20 03/19/20 03/19/20 12:44 15:41 20:52 Temperature 37.1 C 36.1 C L 37.4 C Heart Rate [ 91 95 86 Monitoring electrodes] Respiratory 25 H 20 20 Rate Blood Pressure 125/96 H 134/97 H 132/92 H [Left Brachial artery] Blood Pressure [Right Brachial artery] O2 Saturation 97 99 96 03/19/20 03/20/20 03/20/20 23:35 04:32 09:00 Temperature 36.7 C 36.6 C 36.5 C Heart Rate [ 95 93 91 Monitoring electrodes] Respiratory 16 16 20 Rate Blood Pressure 119/83 H [Left Brachial artery] Blood Pressure 125/90 H 116/84 H [Right Brachial artery] O2 Saturation 94 93 96 Oxygen O2 Source Room air - LABS Result Diagrams: 03/20/20 05:25 03/20/20 05:25 Other Lab Results: Microbiology Results 03/18/20 17:15 Stool Occult Blood - Final 03/16/20 15:56 Urine,Clean Catch Urine Culture - Final Escherichia Coli Laboratory Results 03/20/20 05:25: Sodium 137, Potassium 4.3, Chloride 105, Carbon Dioxide 25, Anion Gap 7.0, BUN < 5 L, Creatinine 0.6, Estimated GFR (MDRD) 121, Glucose 95, Calcium 8.0 L, Phosphorus 2.7, Magnesium 1.7, Total Bilirubin 0.4, AST 108 H, ALT 49, Alkaline Phosphatase 142 H, Total Protein 6.1 L, Albumin 2.9 L, Globulin 3.2, Albumin/Globulin Ratio 0.9 L 03/20/20 05:25: WBC 9.7, RBC 2.39 L, Hgb 8.3 L, Hct 26.0 L, MCV 108.8 H, MCH 34.7 H, MCHC 31.9 L, RDW 19.0 H, Plt Count 290, MPV 9.7, Neut # (Auto) 5.5, Lymp h # (Auto) 2.6, [place] # (Auto) 1.1 H, Eos # (Auto) 0.1, Baso # (Auto) 0.1, Absolute Nucleated RBC 0.03, Nucleated RBC % 0.3 03/19/20 04:52: VBG pH 7.439 H, Ionized Calcium 1.09 L 03/19/20 04:52: Sodium 131 L, Potassium 3.6, Chloride 97 L, Carbon Dioxide 25, Anion Gap 9.0, BUN < 5 L, Creatinine 0.5, Estimated GFR (MDRD) 149, Glucose 105 H, Calcium 7.7 L, Phosphorus 1.7 L, Magnesium 1.9, Total Bilirubin 0.8, AST 103 H, ALT 44, Alkaline Phosphatase 128 H, Total Protein 5.6 L, Albumin 2.7 L, Globulin 2.9, Albumin/Globulin Ratio 0.9 L 03/19/20 04:52: WBC 10.4, RBC 2.39 L, Hgb 8.2 L, Hct 25.2 L, MCV 105.4 H, MCH 34.3 H, MCHC 32.5, RDW 17.8 H, Plt Count 237, MPV 9.2, Neut # (Auto) 7.7 H, Lymph # (Auto) 1.7, [place] # (Auto) 0.7, Eos # (Auto) 0.1, Baso # (Auto) 0.0, Absolute Nucleated RBC 0.03, Nucleated RBC % 0.3 03/18/20 12:02: Sodium 126 L 03/16/20 15:56: Urine Osmolality 433 - FOLLOW UP Follow Up: She was asked to follow-up with her primary care provider within 1 week. - TIME SPENT Time Spent in Discharge (Minutes): 37
[2020-03-20 09:08] VITALS: BP 119/83
== END 2020-03-20 10:45 | disposition home or self-care (01) | DRG 641 ==
LOC: ED 12:19 → ICU 14:41 → MS2 03-19 14:31
PROVIDERS: ADMIT Internal Medicine; ATTEND Internal Medicine
PROC: 02HV33Z Insertion of Infusion Device into Superior Vena Cava, Percutaneous Approach (ICD-10-PCS; principal; 2020-03-16)
DX: E86.1 Hypovolemia (principal); N39.0 Urinary tract infection, site not specified; E87.1 Hypo-osmolality and hyponatremia; E87.6 Hypokalemia; F10.10 Alcohol abuse, uncomplicated; K70.10 Alcoholic hepatitis without ascites; D64.9 Anemia, unspecified; B96.20 Unspecified Escherichia coli [E. coli] as the cause of diseases classified elsewhere; S01.422A Laceration with foreign body of left cheek and temporomandibular area, initial encounter; S01.421A Laceration with foreign body of right cheek and temporomandibular area, initial encounter; L08.9 Local infection of the skin and subcutaneous tissue, unspecified; W45.8XXA Other foreign body or object entering through skin, initial encounter; F17.210 Nicotine dependence, cigarettes, uncomplicated; L27.0 Generalized skin eruption due to drugs and medicaments taken internally; T36.0X5A Adverse effect of penicillins, initial encounter; Y92.230 Patient room in hospital as the place of occurrence of the external cause
CPT/HCPCS: 36415; 71045; 80053; 80306; 80320; 81001; 81025; 82140; 82272; 82330; 82533; 82607; 82746; 83540; 83690; 83735; 83935; 84100; 84132; 84295; 84300; 84443; 84466; 85025; 85610; 87086; 87150; 87181; 93005; 94640; 96365; 96375; 99283; 99284; A9270; J2060; J3411; J7040; 81003; 82040

== ENCOUNTER 2020-03-21 03:38 | Outpatient (CLI) | payer MEDICAID | END 2020-03-21 03:39 | disposition critical access hospital (66) | LOC: EMS 03:38 | PROVIDERS: ATTEND Surgery | DX: R06.02 Shortness of breath (principal); R05 Cough | CPT/HCPCS: A0425; A0429; A0999 ==

== ENCOUNTER 2020-03-21 03:49 | Inpatient (IN) | payer MEDICAID ==
--- NOTE | 2020-03-21 03:59 | ED Physician Documentation ---
History of Present Illness - Stated complaint Stated Complaint: COUGH/ SOA - Chief complaint Chief Complaint: Resp - History obtained from History obtained from: Patient (the patient is a 24 y/o f alcoholic dcd from the hospital yesterday after she was in theICU for several days with a NA of 104 and K of 1.7. progressively improved and was ulitimately dcd home. became sob this am and ems reports hypoxic on arrival at 80% RA. hx of asthma but no wheezing.) Review of Systems Constitutional: reports: Reviewed and negative Eyes: reports: Reviewed and negative Ears: reports: Reviewed and negative Nose: reports: Reviewed and negative Throat: reports: Reviewed and negative Cardiac: reports: Reviewed and negative Respiratory: reports: Dyspnea GI: reports: Reviewed and negative : reports: Reviewed and negative Skin: reports: Reviewed and negative Musculoskeletal: reports: Reviewed and negative Neurologic: reports: Reviewed and negative Psychiatric: reports: Reviewed and negative Endocrine: reports: Reviewed and negative Immunocompromised: reports: Reviewed and negative PD PAST MEDICAL HISTORY - Past Medical History Cardiovascular: None Respiratory: Asthma, Pneumonia Neuro: None Endocrine/Autoimmune: None GI: Pancreatitis 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 : None HEENT: None Psych: Depression Musculoskeletal: None Derm: None - Past Surgical History Past Surgical History: No - Present Medications Home Medications: Ambulatory Orders Medication Instructions Recorded Confirmed Medroxyprogesterone Acetate 150 mg IM Q90D 03/16/20 03/16/20 [Depo-Provera] Arnica Gel 1 applic TOP TID PRN 03/17/20 03/17/20 Multivitamin [Theragran] 1 tab PO DAILYWM #30 tablet 03/20/20 Pantoprazole [Protonix] 40 mg PO QDAC #30 tablet 03/20/20 Thiamine [Vitamin B-1] 100 mg PO DAILY #30 tablet 03/20/20 03/21/20 cephALEXin [Keflex] 250 mg PO Q6HR #11 capsule 03/20/20 03/21/20 - Allergies Allergies/Adverse Reactions: Allergies Allergy/AdvReac Type Severity Reaction Status Date / Time amoxicillin [From Augmentin] Allergy FLUSHING,BL Verified 03/21/20 03:58 OTCHINESS clavulanic acid Allergy FLUSHING,BL Verified 03/21/20 03:58 [From Augmentin] OTCHINESS - Social History Does the pt smoke?: Yes Smoking Status: Current every day smoker Does the pt drink ETOH?: Yes Does the pt have substance abuse?: No - Immunizations Immunizations are current?: Yes - POLST Patient has POLST: No POLST Status: Full Code PD ED PE NORMAL - Vitals Vital signs reviewed: Yes - General General: No acute distress, Other (tachypneic. pale.) - HEENT HEENT: PERRL, Other (dressing over right IJ with blood on bandage.) - Neck Neck: Supple, no meningeal sign - Cardiac Cardiac: RRR, No murmur - Respiratory Respiratory: Clear bilaterally, Other (breath sounds present bilaterally, trachea midline, tachypneic, no wheezing, crackles at bases bilaterally.) - Abdomen Abdomen: Normal bowel sounds, Soft, Non tender, Non distended - Back Back: No spinal TTP - Derm Derm: Normal color, Warm and dry, No rash - Extremities Extremities: No deformity, Other (1+ edema to b/l le.) - Neuro Neuro: Alert and oriented X 3 - Psych Psych: Normal mood, Normal affect Results - Vitals Vitals: Vital Signs - 24 hr 03/21/20 03/21/20 03/21/20 03:58 04:18 04:50 Temperature 36.8 C Heart Rate 92 92 93 Respiratory 20 20 Rate Blood Pressure 150/112 H 157/115 H O2 Saturation 87 L 90 L 03/21/20 03/21/20 05:00 05:58 Temperature Heart Rate 92 103 H Respiratory 26 H 24 Rate Blood Pressure 151/111 H 162/116 H O2 Saturation 96 91 L Oxygen O2 Source BIPAP Oxygen Flow Rate 10 - EKG (time done) 04:07 Rate: Other (no stemi) - Labs Labs: Laboratory Tests 03/21/20 03/21/20 03/21/20 04:12 04:12 04:12 WBC 9.2 RBC 2.61 L Hgb 8.9 L Hct 28.5 L MCV 109.2 H MCH 34.1 H MCHC 31.2 L RDW 19.6 H Plt Count 319 MPV 9.6 Neut # (Auto) 5.9 Lymph # (Auto) 1.9 [place] # (Auto) 1.0 Eos # (Auto) 0.1 Baso # (Auto) 0.0 Absolute Nucleated RBC 0.00 Nucleated RBC % 0.0 PT 12.4 INR 1.1 APTT 29.3 Sodium 138 Potassium 4.6 Chloride 103 Carbon Dioxide 21 Anion Gap 14.0 H BUN 6 Creatinine 0.5 Estimated GFR (MDRD) 149 Glucose 100 Lactic Acid Calcium 8.4 L Magnesium 1.8 Total Bilirubin 0.5 AST 73 H ALT 43 Alkaline Phosphatase 132 H Total Creatine Kinase 24 Troponin I High Sens B-Natriuretic Peptide Total Protein 6.5 L Albumin 3.1 L Globulin 3.4 Albumin/Globulin Ratio 0.9 L Lipase 75 H TSH Salicylates < 6.0 Acetaminophen < 10 L Ethyl Alcohol < 5.0 03/21/20 03/21/20 03/21/20 04:12 04:12 04:12 WBC RBC Hgb Hct MCV MCH MCHC RDW Plt Count MPV Neut # (Auto) Lymph # (Auto) [place] # (Auto) Eos # (Auto) Baso # (Auto) Absolute Nucleated RBC Nucleated RBC % PT INR APTT Sodium Potassium Chloride Carbon Dioxide Anion Gap BUN Creatinine Estimated GFR (MDRD) Glucose Lactic Acid Calcium Magnesium Total Bilirubin AST ALT Alkaline Phosphatase Total Creatine Kinase Troponin I High Sens 8.2 B-Natriuretic Peptide 2601 H Total Protein Albumin Globulin Albumin/Globulin Ratio Lipase TSH 5.83 H Salicylates Acetaminophen Ethyl Alcohol 03/21/20 05:15 WBC RBC Hgb Hct MCV MCH MCHC RDW Plt Count MPV Neut # (Auto) Lymph # (Auto) [place] # (Auto) Eos # (Auto) Baso # (Auto) Absolute Nucleated RBC Nucleated RBC % PT INR APTT Sodium Potassium Chloride Carbon Dioxide Anion Gap BUN Creatinine Estimated GFR (MDRD) Glucose Lactic Acid 0.9 Calcium Magnesium Total Bilirubin AST ALT Alkaline Phosphatase Total Creatine Kinase Troponin I High Sens B-Natriuretic Peptide Total Protein Albumin Globulin Albumin/Globulin Ratio Lipase TSH Salicylates Acetaminophen Ethyl Alcohol PD MEDICAL DECISION MAKING - ED course Complexity details: reviewed old records, reviewed results, re-evaluated patient, considered differential (PE, ASTHMA, PULMONARY EDEMA, PNTHX.), d/w patient, d/w family, d/w project consultant (05:40 will admit to ICU.), other (Patient is afebrile she does have pulmonary edema on imaging With elevated BNP patient apparently given antibiotics as well as IV Lasix.CTA shows no pulmonary embolism.) - Critical Care Time(min): 30 Time Includes: Direct patient care, Review records, Reassess patient, Document care, Coordinate care, Medical consult Data interpretation: Labs, CXR, Prior EKG Procedures included in critical care time: Peripheral IV Procedures excluded from critical care time: EKG Departure - Departure Disposition: 66 [facility] DC/Xfer Clinical Impression: Pulmonary edema Qualifiers: Chronicity: acute Qualified Code(s): J81.0 - Acute pulmonary edema Condition: Stable
[2020-03-21] MEDS ORDERED: FOLIC ACID INJ 1 MG, THIAMINE INJ 100 MG, MAGNESIUM SULFATE 2 GM, MULTIVITAMIN 10 ML in... IV STA ×5 (04:07)
[2020-03-21] MEDS ORDERED: THIAMINE 100 MG/1 ML 2 ML MDV ONE (04:25)
[2020-03-21] MEDS ORDERED: FOLIC ACID 5 MG/1 ML 10ML MDV ONE (04:25)
[2020-03-21] MEDS ORDERED: MAGNESIUM SULFATE 1 GM/2 ML VIAL ONE (04:25)
[2020-03-21] MEDS ORDERED: IOVERSOL 320 100 ML VIAL IVP ONE ×2 (04:25→05:29)
[2020-03-21 04:31] LABS: BASOPHILS % (AUTO) 0.4 %; EOSINOPHILS # (AUTO) 0.1 10^3/uL (0.0-0.7); EOSINOPHILS % (AUTO) 1.3 %; HGB - HEMOGLOBIN 8.9 g/dL (12.0-16.0); LYMPHOCYTES # (AUTO) 1.9 10^3/uL (1.5-3.5); LYMPHOCYTES % (AUTO) 20.2 %; MEAN CORPUSCULAR HEMOGLOBIN 34.1 pg (27.0-31.0); MEAN CORPUSCULAR HGB CONC 31.2 g/dL (32.0-36.0); MEAN CORPUSCULAR VOLUME 109.2 fL (81.0-99.0); MEAN PLATELET VOLUME 9.6 fL (7.9-10.8); MONOCYTES % (AUTO) 11.2 %; NEUTROPHILS # (AUTO) 5.9 10^3/uL (1.5-6.6); NEUTROPHILS % (AUTO) 63.9 %; PLT - PLATELET COUNT 319 10^3/uL (130-450); RED BLOOD COUNT 2.61 10^6/uL (4.20-5.40); RED CELL DISTRIBUTION WIDTH 19.6 % (12.0-15.0); WHITE BLOOD COUNT 9.2 x10^3/uL (4.8-10.8)
[2020-03-21 04:39] LABS: INR 1.1 (0.8-1.2); PT - PROTHROMBIN TIME 12.4 secs (9.9-12.6)
[2020-03-21 04:47] LABS: PARTIAL THROMBOPLASTIN TIME 29.3 secs (24.9-33.3)
[2020-03-21 04:48] LABS: ACETAMINOPHEN < 10 ug/mL (10-30); ALBUMIN 3.1 g/dL (3.2-5.5); ALBUMIN/GLOBULIN RATIO 0.9 (1.0-2.2); ALKALINE PHOSPHATASE 132 IU/L (42-121); ALT ALANINE AMINOTRANSFERASE 43 IU/L (10-60); AST ASPARTATE AMINOTRANSFERASE 73 IU/L (10-42); BILIRUBIN,TOTAL 0.5 mg/dL (0.2-1.0); BUN - BLOOD UREA NITROGEN 6 mg/dL (6-20); CALCIUM 8.4 mg/dL (8.5-10.3); CARBON DIOXIDE - CO2 21 mmol/L (21-32); CHLORIDE 103 mmol/L (101-111); CK- CREATINE KINASE 24 IU/L (22-269); CREATININE 0.5 mg/dL (0.4-1.0); GLUCOSE 100 mg/dL (70-100); LIPASE 75 U/L (22-51); MAGNESIUM 1.8 mg/dL (1.7-2.8); SALICYLATE < 6.0 mg/dL; SODIUM 138 mmol/L (135-145); TOTAL PROTEIN 6.5 g/dL (6.7-8.2)
[2020-03-21] MEDS ORDERED: cefTRIAXone 1 GM in SODIUM CHLORIDE 0.9% MINIBAG 100 ML IV STA (05:03)
[2020-03-21] MEDS ORDERED: LORazepam 2 MG/ML VIAL IVP STA (05:15)
[2020-03-21] MEDS ORDERED: FUROSEMIDE 40 MG/4 ML VIAL IVP STA (06:02)
--- NOTE | 2020-03-21 06:19 | HISTORY & PHYSICAL EXAMINATION ---
Chief Complaint - Chief Complaint Chief Complaint: Dyspnea History of Present Illness - Admitted From [facility] ED - History Obtained From Records Reviewed: yes History obtained from: mother Exam Limitations: patient is lethargic - History of Present Illness HPI Comment/Other: Patient is a 24-year-old female who presented to the ED with acute onset of dyspnea. This started around 1 AM with coughing fit. She was just discharged from the hospital yesterday for 4-day stay due to hyponatremia. This was likely related to alcohol use. Her sodium level was corrected by the time of discharge. Currently she is very lethargic and on Bipap thus unable to provide this history. The history was mainly obtained from her mother. The patient did not report any chest pain but complained of chest soreness from coughing. She denied abdominal pain, fever or chills. Upon presentation her oxygen saturation was in the 80s and her respiratory rate was as high as 40s. In the emergency room work-up included a BMP which was elevated [place] 2600. CT angiogram of the chest was negative for pulmonary embolus but showed pulmonary edema and was also suspicious for aspiration. 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. She lives with her parents. She is currently in a relationship but is not and does not have children. It is reported that the patient drinks about 2 bottles of wine daily. However she has not drank any alcohol in the past 7 days. Patient also smokes cigarettes but has not done so in the past week as well. - POLST Patient has POLST: No POLST Status: Full Code Meds/Allgy - Home Medications Home Medications: Ambulatory Orders Medication Instructions Recorded Confirmed Medroxyprogesterone Acetate 150 mg IM Q90D 03/16/20 03/16/20 [Depo-Provera] Arnica Gel 1 applic TOP TID PRN 03/17/20 03/17/20 Multivitamin [Theragran] 1 tab PO DAILYWM #30 tablet 03/20/20 Pantoprazole [Protonix] 40 mg PO QDAC #30 tablet 03/20/20 Thiamine [Vitamin B-1] 100 mg PO DAILY #30 tablet 03/20/20 03/21/20 cephALEXin [Keflex] 250 mg PO Q6HR #11 capsule 03/20/20 03/21/20 - Allergies Allergies/Adverse Reactions: Allergies Allergy/AdvReac Type Severity Reaction Status Date / Time amoxicillin [From Augmentin] Allergy FLUSHING,BL Verified 03/21/20 03:58 OTCHINESS clavulanic acid Allergy FLUSHING,BL Verified 03/21/20 03:58 [From Augmentin] OTCHINESS Review of Systems - Constitutional Constitutional: reports: Weakness. denies: Fever, Chills - Eyes Eyes: denies: Pain - Ears, Nose & Throat Ears, Nose & Throat: denies: Ear pain - Cardiovascular Cariovascular: denies: Irregular heart rate, Chest pain - Respiratory Respiratory: reports: Cough, SOB at rest, SOB with exertion. denies: Sputum production, Wheezing - Gastrointestinal Gastrointestinal: reports: Reflux/heartburn. denies: Abdominal pain, Abdominal distention, Nausea, Vomiting - Genitourinary Genitourinary: denies: Dysuria, Frequency - Musculoskeletal Musculoskeletal: denies: Muscle pain, Back pain - Integumentary Integumentary: denies: Rash, Pruritis - Neurological Neurological: reports: General weakness - Psychiatric Psychiatric: reports: Depression - Endocrine Endocrine: denies: Polyuria, Polydypsia - Hematologic/Lymphatic Hematologic/Lymphatic: reports: Anemia. denies: Bruising Prior Level of Functionality: Patient is normally independent of activities of daily living Exam - Vital Signs Vital Signs: Vital Signs x48h Temp Pulse Resp BP Pulse Ox 03/21/20 05:58 103 H 24 162/116 H 91 L 03/21/20 05:00 92 26 H 151/111 H 96 03/21/20 04:50 93 03/21/20 04:18 92 20 157/115 H 90 L 03/21/20 03:58 36.8 C 92 20 150/112 H 87 L - Physical Exam General Appearance: positive: Severe distress, Lethargic, Other (Patient is well pale appearing.) Eyes Bilateral: positive: PERRL, EOMI ENT: positive: No signs of dehydration Neck: positive: No JVD, Trachea midline Respiratory: positive: Chest non-tender, Other (Coarse breath sounds). negative: Wheezes, Rales, Rhonchi Cardiovascular: positive: Regular rate & rhythm, No murmur Abdomen: positive: Non-tender, No organomegaly, Nml bowel sounds, No distention. negative: Guarding, Rebound Back: positive: Nml inspection Skin: positive: Dry, Pallor Extremities: positive: Non-tender, Nml appearance, No pedal edema Neurologic/Psychiatric: positive: Other (lethargic) Conclusion/Plan - Problem List (1) Acute respiratory failure with hypoxia Conclusion/Plan: Possibly multifactorial. Secondary to pulmonary edema, aspiration. Cannot rule out ARDS. Patient is on BiPAP. Will be admitted to the ICU. Lasix 40 mg IV given x1. Will continue Lasix 20 mg IV twice daily. We will consider placing patient on Zosyn if/when she becomes febrile (2) Pulmonary edema Conclusion/Plan: Very acute onset. Lasix 40 mg IV x1 given in the ED. We will continue Lasix 20 mg IV twice daily. 2D echo ordered for tomorrow morning. Qualifiers: Chronicity: acute Qualified Code(s): J81.0 - Acute pulmonary edema (3) GERD (gastroesophageal reflux disease) Conclusion/Plan: Protonix ordered (4) Alcohol abuse Conclusion/Plan: Patient has not had any alcohol to drink for the past week. She was just discharged from the hospital yesterday for 4-day stay due to hyponatremia. - Lab Results Fish Bones: 03/21/20 04:12 03/21/20 04:12 Core Measures - Anticipated LOS I expect patient to be DC'd or transferred within 96 hours.: Yes - DVT/VTE - Prophylaxis VTE/DVT Device ordered at admit?: Yes VTE/DVT Prophylaxis med ordered at admit?: Yes
[2020-03-21 06:34] LABS: ABG PCO2 32 mmHg (34-45)
[2020-03-21 06:35] LABS: ABG BASE EXCESS -4.5 mmol/L (-2.0-3.0); ABG HCO3 19.4 mmol/L (22.0-26.0); ABG OXYGEN SATURATION 91 % (94-98); ABG PO2 67 mmHg (80-100); ABG TCO2 20.4 MMOL/L (21.0-29.0); ALLEN TEST POSITIVE
[2020-03-21 06:36] LABS: MUDS CUTOFF CONCENTRATIONS CUTOFF CONC BELOW:
[2020-03-21 06:40] LABS: BILIRUBIN,URINE NEGATIVE (NEGATIVE); GLUCOSE, URINE (UA) NEGATIVE (NEGATIVE); KETONES,URINE (UA) NEGATIVE (NEGATIVE); LEUKOCYTE ESTERASE, URINE NEGATIVE (NEGATIVE); NITRITE,URINE NEGATIVE (NEGATIVE); OCCULT BLOOD,URINE NEGATIVE (NEGATIVE); PROTEIN,URINE NEGATIVE (NEGATIVE); UROBILINOGEN,URINE 0.2 (NORMAL) E.U./dL (NORMAL)
[2020-03-21 06:43] LABS: CLARITY,URINE CLEAR (CLEAR); HCG UR QUAL NEGATIVE
[2020-03-21 06:53] LABS: AMPHETAMINE SCREEN,URINE NEGATIVE (NEGATIVE); BENZODIAZEPINES SCREEN, URINE NEGATIVE (NEGATIVE); COCAINE SCREEN URINE NEGATIVE (NEGATIVE); METHADONE SCREEN, URINE NEGATIVE (NEGATIVE); METHAMPHETAMINES SCREEN, URINE NEGATIVE (NEGATIVE); OPIATE SCREEN, URINE NEGATIVE (NEGATIVE); OXYCODONE SCREEN, URINE NEGATIVE (NEGATIVE); PROPOXYPHENE SCREEN, URINE NEGATIVE (NEGATIVE); TRICYCLIC ANTIDEPRESSANT,URINE NEGATIVE (NEGATIVE)
--- NOTE | 2020-03-21 08:19 | PHARMACY PROGRESS NOTE ---
- Best Possible Medication History Admit Date and Time: 03/21/20604 Processed by: Pharmacy Medication History completed: Yes Patient Interview: Pt unable to participate Secondary Source(s): Previous admit records (DISCHARGED PREVIOUS DAY-NO CHANGES TO HOME MED LIST) As the person ultimately responsible for medication therapy, providers are able to order a medication from an existing home medication list in [facility] via the "Reconcile Routine" prior to Confirmation of that medication by underwriting support manager. Such practice is discouraged except when the physician, in their clinical judgment, deems that a medical need exists for a medication without regard to previous use.
[2020-03-21] MEDS: PANTOPRAZOLE 40 MG VIAL IVP SCH (08:45)
[2020-03-21] MEDS: ENOXAPARIN 40 MG/0.4 ML SYRINGE SUBQ SCH (08:46)
[2020-03-21] MEDS: SODIUM CHLORIDE FLUSH 0.9% 10 ML SYRINGE IVP SCH ×3 (08:46→19:53)
--- NOTE | 2020-03-21 09:25 | XRAY Report ---
PROCEDURE: Chest 1 View X-Ray INDICATIONS: sob TECHNIQUE: One view of the chest was acquired. COMPARISON: Chest x-ray 03/16/2020. FINDINGS: Surgical changes and devices: None. Lungs and pleura: Bilateral interstitial and airspace infiltrates have developed since the last ches t x-ray. No pleural effusions or pneumothorax. Mediastinum: Mediastinal contours appear normal. Heart size is normal. Bones and chest wall: No suspicious bony lesions. Overlying soft tissues appear unremarkable. IMPRESSION: Bilateral interstitial and airspace infiltrates may be pulmonary edema or bilateral pneumonia. Reviewed by: Jon Cruz MD on 03/21/2020 9:24 AM PDT Approved by: Jon Cruz MD on 03/21/2020 9:24 AM PDT Station ID: [id number]
--- NOTE | 2020-03-21 09:38 | CT Report ---
PROCEDURE: ANGIO CHEST W/WO INDICATIONS: sob, hypoxic. CONTRAST: IV CONTRAST: Optiray 320 ml: 80 PO CONTRAST: *NO PO CONTRAST TECHNIQUE: After the administration of intravenous contrast, 2 mm thick sections acquired from the pulmonary api bettie to the posterior costophrenic angles. 3-dimensional maximum intensity projection (MIP) coronal a nd sagittal reformats were then acquired through the thorax. For radiation dose reduction, the follow ing was used: automated exposure control, adjustment of mA and/or kV according to patient size. COMPARISON: Chest x-ray, 03/21/2020. CT pulmonary angiogram 09/30/2018. FINDINGS: Image quality: Excellent. Pulmonary arteries: Pulmonary arteries are normal in size, and demonstrate no intraluminal filling d efects to suggest central pulmonary embolism. Lungs and pleura: Diffuse bilateral groundglass infiltrates. There are bibasilar consolidations. Smal l right effusion and trace left effusion. No pneumothorax. Central and peripheral airways are patent . Mediastinum: Heart size is normal, without pericardial effusion. No mediastinal or hilar adenopathy . Thoracic aorta is normal in caliber and enhancement. Esophagus is normal in caliber, without hiat al hernia. Bones and chest wall: No suspicious bony lesions. Ribs and thoracic spine appear intact throughout. The thyroid is normal. No axillary or supraclavicular adenopathy. Abdomen: Severe hepatic steatosis. Liver is enlarged. Visualized upper abdominal solid organs appear normal in the early arterial phase of enhancement. IMPRESSION: 1. No pulmonary embolism. 2. Bilateral diffuse ground glass infiltrates and bibasilar consolidations suspicious for pneumonia. Superimposed pulmonary edema may be present. 3. Small right effusion and trace left effusion. 4. Severe hepatic steatosis. Hepatomegaly. No significant discrepancy with the preliminary report. Reviewed by: Jon Cruz MD on 03/21/2020 9:36 AM PDT Approved by: Jon Cruz MD on 03/21/2020 9:36 AM PDT Station ID: [id number]
[2020-03-21] MEDS: FUROSEMIDE 20 MG/2 ML VIAL IVP SCH (14:04)
[2020-03-21 18:06] LABS: CREATININE 0.6 mg/dL (0.4-1.0)
[2020-03-21 18:31] LABS: CALCIUM 8.5 mg/dL (8.5-10.3)
[2020-03-22 04:21] LABS: VBG PH 7.46 (7.31-7.41)
[2020-03-22 04:22] LABS: BASOPHILS % (AUTO) 0.5 %; EOSINOPHILS # (AUTO) 0.1 10^3/uL (0.0-0.7); HGB - HEMOGLOBIN 9.7 g/dL (12.0-16.0); LYMPHOCYTES # (AUTO) 1.8 10^3/uL (1.5-3.5); LYMPHOCYTES % (AUTO) 22.7 %; MEAN CORPUSCULAR HEMOGLOBIN 34.5 pg (27.0-31.0); MEAN CORPUSCULAR HGB CONC 31.8 g/dL (32.0-36.0); MEAN CORPUSCULAR VOLUME 108.5 fL (81.0-99.0); MEAN PLATELET VOLUME 9.4 fL (7.9-10.8); MONOCYTES # (AUTO) 0.9 10^3/uL (0.0-1.0); MONOCYTES % (AUTO) 11.6 %; NEUTROPHILS # (AUTO) 4.9 10^3/uL (1.5-6.6); PLT - PLATELET COUNT 297 10^3/uL (130-450); RED BLOOD COUNT 2.81 10^6/uL (4.20-5.40); RED CELL DISTRIBUTION WIDTH 19.4 % (12.0-15.0); WHITE BLOOD COUNT 7.8 x10^3/uL (4.8-10.8)
[2020-03-22] MEDS ORDERED: CALCIUM CARBONATE CHEW 500 MG TABLET PO PRN (04:29)
[2020-03-22 04:35] LABS: CALCIUM 8.6 mg/dL (8.5-10.3); CREATININE 0.6 mg/dL (0.4-1.0); MAGNESIUM 2.1 mg/dL (1.7-2.8); PHOSPHORUS 4.6 mg/dL (2.5-4.6)
[2020-03-22] MEDS: PANTOPRAZOLE 40 MG VIAL IVP SCH (06:05)
[2020-03-22] MEDS: FUROSEMIDE 20 MG/2 ML VIAL IVP SCH ×2 (06:05→13:28)
[2020-03-22] MEDS: SODIUM CHLORIDE FLUSH 0.9% 10 ML SYRINGE IVP PRN (06:05)
[2020-03-22] MEDS: ENOXAPARIN 40 MG/0.4 ML SYRINGE SUBQ SCH (08:11)
[2020-03-22] MEDS: SODIUM CHLORIDE FLUSH 0.9% 10 ML SYRINGE IVP SCH ×2 (08:12→13:28)
--- NOTE | 2020-03-22 08:12 | XRAY Report ---
PROCEDURE: Chest 1 View X-Ray INDICATIONS: dyspnea, pulmonary edema TECHNIQUE: One view of the chest was acquired. COMPARISON: Chest x-ray 03/21/2020 FINDINGS: Surgical changes and devices: None. Lungs and pleura: There is increased appearance of bilateral pulmonary vascularity although minimally decreased compared to prior exam. There is slight increased consolidative opacity identified within the right base and right upper lobe. Mediastinum: Mediastinal contours appear normal. Heart size is borderline enlarged. Bones and chest wall: No suspicious bony lesions. Overlying soft tissues appear unremarkable. IMPRESSION: 1. Mild interval decreased appearance of prominent pulmonary vascularity. However, overall appearance of edema remains present. 2. Increased appearance of consolidative opacity within the right base and left upper lobe. 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 However, development of atelectasis and/or pneumonia marya uld be considered. Reviewed by: Tara Good MD on 03/22/2020 8:10 AM PDT Approved by: Tara Good MD on 03/22/2020 8:10 AM PDT Station ID: [id number]
--- NOTE | 2020-03-22 08:41 | PROVIDER PROGRESS NOTE ---
Subjective - Prog Note Date Prog Note Date: 03/22/20 - Subjective Subjective: Reports feeling better today but still dyspneic. Denies any chest pain. She is eager to eat. Current Medications - Current Medications Current Medications: Active Medications Acetaminophen (Tylenol) 650 mg PO Q4HR PRN PRN Reason: Pain or Fever > 38C (100.4F) Last Admin: 03/22/20 17:24 Dose: 650 mg Documented by: Calcium Carbonate/Glycine (Tums) 500 mg PO TID PRN PRN Reason: Heartburn Enoxaparin Sodium (Lovenox) 40 mg SUBQ DAILY [facility] Last Admin: 03/22/20 08:11 Dose: 40 mg Documented by: Furosemide (Lasix Inj 20mg Vial) 20 mg IVP BIDDIURETIC [facility] Last Admin: 03/22/20 13:28 Dose: 20 mg Documented by: Lisinopril (Zestril) 5 mg PO DAILY [facility] Metoprolol Tartrate (Lopressor) 12.5 mg PO BID [facility] Multivitamins (Theragran) 1 tab PO DAILYWM [facility] Last Admin: 03/22/20 12:52 Dose: 1 tab Documented by: Pantoprazole Sodium (Protonix) 40 mg IVP QDAC [facility] Last Admin: 03/22/20 06:05 Dose: 40 mg Documented by: Sodium Chloride (Normal Saline Flush 0.9%) 10 ml IVP 0100,0900,1700 [facility] Last Admin: 03/22/20 13:28 Dose: 10 ml Documented by: Sodium Chloride (Normal Saline Flush 0.9%) 10 ml IVP PRN PRN PRN Reason: NEEDED PER PROVIDER ORDERS Last Admin: 03/22/20 06:05 Dose: 10 ml Documented by: Thiamine HCl (Vitamin B-1) 100 mg PO DAILY [facility] Last Admin: 03/22/20 12:52 Dose: 100 mg Documented by: Medroxyprogesterone Acetate [Depo-Provera] 150 mg IM Q90D 03/16/20 Arnica Gel 1 applic TOP TID PRN 03/17/20 Objective - Vital Signs/Intake & Output Reviewed Vital Signs: Yes Vital Signs: Vital Signs Temp Pulse Pulse Resp BP Pulse Ox 03/22/20 08:08 36.6 C 86 22 99 03/22/20 07:00 86 30 H 128/101 H 99 03/22/20 06:15 26 H 95 03/22/20 06:00 93 29 H 143/109 H 98 03/22/20 05:00 86 29 H 145/109 H 99 Intake & Output: Intake & Output 03/19/20 03/20/20 03/21/20 03/22/20 23:59 23:59 23:59 23:59 Intake Total 1365.2 300 Output Total 4335 1340 Balance -2969.8 -1040 - Objective General Appearance: positive: No acute distress, Alert Eyes Bilateral: positive: Normal inspection, Conjunctivae nml ENT: positive: ENT inspection nml Neck: positive: Nml inspection Respiratory: positive: Rales, Other (She is still tachypneic with respiratory rate in the low 20s. Bilateral rales noted. Diminished breath sounds in the bilateral bases. No wheezing or rhonchi.). negative: Breath sounds nml, Wh eezes, Rhonchi Cardiovascular: positive: No murmur, Tachycardia. negative: Irregularly irregular, Bradycardia, Systolic murmur Abdomen: positive: Non-tender, No distention. negative: Tenderness, Guarding, Rebound Skin: positive: Warm, Dry Extremities: positive: Full ROM, No pedal edema Neurologic/Psychiatric: positive: Oriented x3, Motor nml - Lab Results Fish Bones: 03/22/20 04:08 03/22/20 04:08 Other Labs: Lab Results x24hrs 03/22/20 03/22/20 03/22/20 Range/Units 04:08 04:08 04:08 WBC (4.8-10.8) x10^3/uL RBC (4.20-5.40) 10^6/uL Hgb (12.0-16.0) g/dL Hct (37.0-47.0) % MCV (81.0-99.0) fL MCH (27.0-31.0) pg MCHC (32.0-36.0) g/dL RDW (12.0-15.0) % Plt Count (130-450) 10^3/uL MPV (7.9-10.8) fL Neut # (Auto) (1.5-6.6) 10^3/uL Lymph # (Auto) (1.5-3.5) 10^3/uL Johnson # (Auto) (0.0-1.0) 10^3/uL Eos # (Auto) (0.0-0.7) 10^3/uL Baso # (Auto) (0.0-0.1) 10^3/uL Absolute Nucleated RBC x10^3/uL Nucleated RBC % /100WBC VBG pH 7.460 H (7.31-7.41) Ionized Calcium 1.13 L (1.15-1.33) mmol/L Sodium (135-145) mmol/L Potassium (3.5-5.0) mmol/L Chloride (101-111) mmol/L Carbon Dioxide (21-32) mmol/L Anion Gap (6-13) BUN (6-20) mg/dL Creatinine (0.4-1.0) mg/dL Estimated GFR (MDRD) (>89) Glucose (70-100) mg/dL Calcium (8.5-10.3) mg/dL Phosphorus (2.5-4.6) mg/dL Magnesium (1.7-2.8) mg/dL Troponin I High Sens (2.3-14.8) ng/L B-Natriuretic Peptide 2787 H (5-100) pg/mL Albumin 2.9 L (3.2-5.5) g/dL Nasal Screen MRSA (PCR) (NEGATIVE) Coronavirus (PCR) 03/22/20 03/22/20 03/21/20 Range/Units 04:08 04:08 17:53 WBC 7.8 (4.8-10.8) x10^3/uL RBC 2.81 L (4.20-5.40) 10^6/uL Hgb 9.7 L (12.0-16.0) g/dL Hct 30.5 L (37.0-47.0) % MCV 108.5 H (81.0-99.0) fL MCH 34.5 H (27.0-31.0) pg MCHC 31.8 L (32.0-36.0) g/dL RDW 19.4 H (12.0-15.0) % Plt Count 297 (130-450) 10^3/uL MPV 9.4 (7.9-10.8) fL Neut # (Auto) 4.9 (1.5-6.6) 10^3/uL Lymph # (Auto) 1.8 (1.5-3.5) 10^3/uL Johnson # (Auto) 0.9 (0.0-1.0) 10^3/uL Eos # (Auto) 0.1 (0.0-0.7) 10^3/uL Baso # (Auto) 0.0 (0.0-0.1) 10^3/uL Absolute Nucleated RBC 0.00 x10^3/uL Nucleated RBC % 0.0 /100WBC VBG pH (7.31-7.41) Ionized Calcium (1.15-1.33) mmol/L Sodium 137 135 (135-145) mmol/L Potassium 4.9 4.3 (3.5-5.0) mmol/L Chloride 104 101 (101-111) mmol/L Carbon Dioxide 22 23 (21-32) mmol/L Anion Gap 11.0 11.0 (6-13) BUN 7 5 L (6-20) mg/dL Creatinine 0.6 0.6 (0.4-1.0) mg/dL Estimated GFR (MDRD) 121 121 (>89) Glucose 103 H 125 H (70-100) mg/dL Calcium 8.6 8.5 (8.5-10.3) mg/dL Phosphorus 4.6 (2.5-4.6) mg/dL Magnesium 2.1 (1.7-2.8) mg/dL Troponin I High Sens (2.3-14.8) ng/L B-Natriuretic Peptide (5-100) pg/mL Albumin (3.2-5.5) g/dL Nasal Screen MRSA (PCR) (NEGATIVE) Coronavirus (PCR) 03/21/20 03/21/20 03/21/20 Range/Units 10:31 06:50 05:20 WBC (4.8-10.8) x10^3/uL RBC (4.20-5.40) 10^6/uL Hgb (12.0-16.0) g/dL Hct (37.0-47.0) % MCV (81.0-99.0) fL MCH (27.0-31.0) pg MCHC (32.0-36.0) g/dL RDW (12.0-15.0) % Plt Count (130-450) 10^3/uL MPV (7.9-10.8) fL Neut # (Auto) (1.5-6.6) 10^3/uL Lymph # (Auto) (1.5-3.5) 10^3/uL Johnson # (Auto) (0.0-1.0) 10^3/uL Eos # (Auto) (0.0-0.7) 10^3/uL Baso # (Auto) (0.0-0.1) 10^3/uL Absolute Nucleated RBC x10^3/uL Nucleated RBC % /100WBC VBG pH (7.31-7.41) Ionized Calcium (1.15-1.33) mmol/L Sodium (135-145) mmol/L Potassium (3.5-5.0) mmol/L Chloride (101-111) mmol/L Carbon Dioxide (21-32) mmol/L Anion Gap (6-13) BUN (6-20) mg/dL Creatinine (0.4-1.0) mg/dL Estimated GFR (MDRD) (>89) Glucose (70-100) mg/dL Calcium (8.5-10.3) mg/dL Phosphorus (2.5-4.6) mg/dL Magnesium (1.7-2.8) mg/dL Troponin I High Sens 9.5 (2.3-14.8) ng/L B-Natriuretic Peptide (5-100) pg/mL Albumin (3.2-5.5) g/dL Nasal Screen MRSA (PCR) NEGATIVE (NEGATIVE) Coronavirus (PCR) NEGATIVE Assessment/Plan - Problem List (1) Acute respiratory failure with hypoxia Impression: This likely secondary to heart failure given her elevated BNP. Imaging was concerning for pulmonary edema on admission. She initially required BiPAP but is now saturating well on 2 L of oxygen via nasal cannula. We will continue to diurese her with Lasix IV twice daily. Continue to wean oxygen as tolerated. Echocardiogram today. Hold off on antibiotics as there is no evidence of pneumonia at this time. Transfer out of ICU today. (2) Suspected CHF (congestive heart failure) Impression: This is suspected given her BNP is elevated at 2700 and imaging is concerning for pulmonary edema. Suspect she may have alcoholic cardiomyopathy given her history of alcohol use. An echocardiogram has been ordered for today. We will continue diuresis with Lasix IV twice daily. Continue with daily weights and strict I's and O's. Will remove Estrada catheter today. Continue to trend BNP. (3) Alcoholism Impression: We will continue multivitamin and thiamine during his hospitalization. Her LFTs are improving. (4) Anemia Impression: Continues to improve with no evidence of bleeding. This was likely due to dilutional due to IV fluid she received during her prior hospitalization. Continue to monitor while hospitalized. (5) GERD (gastroesophageal reflux disease) Impression: Continue Protonix.
[2020-03-22] MEDS: THIAMINE 100 MG TABLET PO SCH (12:52)
[2020-03-22] MEDS: MULTIVITAMIN TABLET PO SCH (12:52)
[2020-03-22] MEDS: ACETAMINOPHEN 325 MG TABLET PO PRN (17:24)
[2020-03-22] MEDS: oxyCODONE 5 MG TABLET PO PRN (22:01)
[2020-03-22] MEDS: METOPROLOL TARTRATE 25 MG TABLET PO SCH (22:02)
[2020-03-23] MEDS: SODIUM CHLORIDE FLUSH 0.9% 10 ML SYRINGE IVP SCH ×4 (00:09→23:42)
[2020-03-23] MEDS: diphenhydrAMINE 25 MG CAPSULE PO PRN ×2 (00:09→20:13)
[2020-03-23] MEDS: ACETAMINOPHEN 325 MG TABLET PO PRN ×2 (00:13→17:59)
[2020-03-23] MEDS: oxyCODONE 5 MG TABLET PO PRN ×2 (05:32→22:45)
[2020-03-23] MEDS: SODIUM CHLORIDE FLUSH 0.9% 10 ML SYRINGE IVP PRN ×2 (05:32→13:57)
[2020-03-23] MEDS: PANTOPRAZOLE 40 MG VIAL IVP SCH (05:32)
[2020-03-23] MEDS: FUROSEMIDE 20 MG/2 ML VIAL IVP SCH ×2 (05:32→13:57)
[2020-03-23 05:39] LABS: BASOPHILS # (AUTO) 0.1 10^3/uL (0.0-0.1); BASOPHILS % (AUTO) 0.8 %; EOSINOPHILS # (AUTO) 0.1 10^3/uL (0.0-0.7); EOSINOPHILS % (AUTO) 0.8 %; HGB - HEMOGLOBIN 9.4 g/dL (12.0-16.0); LYMPHOCYTES # (AUTO) 2.5 10^3/uL (1.5-3.5); LYMPHOCYTES % (AUTO) 34.3 %; MEAN CORPUSCULAR HEMOGLOBIN 33.5 pg (27.0-31.0); MEAN CORPUSCULAR HGB CONC 31.5 g/dL (32.0-36.0); MEAN PLATELET VOLUME 9.5 fL (7.9-10.8); MONOCYTES # (AUTO) 0.9 10^3/uL (0.0-1.0); MONOCYTES % (AUTO) 11.9 %; NEUTROPHILS # (AUTO) 3.7 10^3/uL (1.5-6.6); NEUTROPHILS % (AUTO) 51.4 %; PLT - PLATELET COUNT 277 10^3/uL (130-450); RED BLOOD COUNT 2.81 10^6/uL (4.20-5.40); RED CELL DISTRIBUTION WIDTH 18.6 % (12.0-15.0); WHITE BLOOD COUNT 7.2 x10^3/uL (4.8-10.8)
[2020-03-23 05:41] LABS: VBG PH 7.465 (7.31-7.41)
[2020-03-23 05:51] LABS: ALBUMIN 2.8 g/dL (3.2-5.5); CALCIUM 8.6 mg/dL (8.5-10.3); CREATININE 0.5 mg/dL (0.4-1.0); PHOSPHORUS 4.7 mg/dL (2.5-4.6)
[2020-03-23] MEDS: MULTIVITAMIN TABLET PO SCH (10:29)
[2020-03-23] MEDS: lisinopriL 5 MG TABLET PO SCH (10:29)
[2020-03-23] MEDS: ENOXAPARIN 40 MG/0.4 ML SYRINGE SUBQ SCH (10:29)
[2020-03-23] MEDS: METOPROLOL TARTRATE 25 MG TABLET PO SCH ×2 (10:29→20:12)
[2020-03-23] MEDS: THIAMINE 100 MG TABLET PO SCH (10:30)
--- NOTE | 2020-03-23 11:46 | PROVIDER PROGRESS NOTE ---
Subjective - Prog Note Date Prog Note Date: 03/23/20 Prog Note Time: 11:55 - Subjective Pt reports feeling: Improved Subjective: She feels less short of breath. I spent quite a bit of time talking to her and her father who is in the room. When I asked her to give me a general summary of what I was describing and what was wrong with her, her only answer was to say "I have a heart problem and I need to get better". Speech is slowed, vague word finding, and dad says she has been having "memory problems" for years now with her alcohol abuse. Her last drink was 10 days ago. No withdrawal so far. Current Medications - Current Medications Current Medications: Active Medications Acetaminophen (Tylenol) 650 mg PO Q4HR PRN PRN Reason: Pain or Fever > 38C (100.4F) Last Admin: 03/23/20 00:13 Dose: 650 mg Documented by: Calcium Carbonate/Glycine (Tums) 500 mg PO TID PRN PRN Reason: Heartburn Diphenhydramine HCl (Benadryl) 25 mg PO QPM PRN PRN Reason: Insomnia Last Admin: 03/23/20 00:09 Dose: 25 mg Documented by: Enoxaparin Sodium (Lovenox) 40 mg SUBQ DAILY [facility] Last Admin: 03/23/20 10:29 Dose: 40 mg Documented by: Furosemide (Lasix Inj 20mg Vial) 20 mg IVP BIDDIURETIC [facility] Last Admin: 03/23/20 05:32 Dose: 20 mg Documented by: Lisinopril (Zestril) 5 mg PO DAILY [facility] Last Admin: 03/23/20 10:29 Dose: 5 mg Documented by: Metoprolol Tartrate (Lopressor) 12.5 mg PO BID [facility] Last Admin: 03/23/20 10:29 Dose: 12.5 mg Documented by: Multivitamins (Theragran) 1 tab PO DAILYWM [facility] Last Admin: 03/23/20 10:29 Dose: 1 tab Documented by: Oxycodone HCl (Roxicodone) 5 mg PO Q4HR PRN PRN Reason: PAIN Last Admin: 03/23/20 05:32 Dose: 5 mg Documented by: Pantoprazole Sodium (Protonix) 40 mg IVP QDAC [facility] Last Admin: 03/23/20 05:32 Dose: 40 mg Documented by: Sodium Chloride (Normal Saline Flush 0.9%) 10 ml IVP 0100,0900,1700 [facility] Last Admin: 03/23/20 10:30 Dose: 10 ml Documented by: Sodium Chloride (Normal Saline Flush 0.9%) 10 ml IVP PRN PRN PRN Reason: NEEDED PER PROVIDER ORDERS Last Admin: 03/23/20 05:32 Dose: 10 ml Documented by: Thiamine HCl (Vitamin B-1) 100 mg PO DAILY [facility] Last Admin: 03/23/20 10:30 Dose: 100 mg Documented by: Medroxyprogesterone Acetate [Depo-Provera] 150 mg IM Q90D 03/16/20 Arnica Gel 1 applic TOP TID PRN 03/17/20 Objective - Vital Signs/Intake & Output Reviewed Vital Signs: Yes Vital Signs: Vital Signs x48h Temp Pulse Resp BP BP Pulse Ox 03/23/20 11:26 36.7 C 77 16 114/86 H 97 03/23/20 10:29 120/82 H 03/23/20 07:55 36.5 C 85 16 118/83 H 97 Intake & Output: Intake & Output 03/20/20 03/21/20 03/22/20 03/23/20 23:59 23:59 23:59 23:59 Intake Total 1365.2 1271 865 Output Total 4335 2520 500 Balance -2969.8 -1249 365 - Objective General Appearance: positive: No acute distress, Other (Slow psychomotor responses when I speak to her) Eyes Bilateral: positive: PERRL, Other (No nystagmus) ENT: positive: Pharynx nml Neck: positive: No JVD. negative: Stiff neck, Carotid bruit Respiratory: positive: Chest non-tender, No respiratory distress, Rales (Very faint at bases with slow shallow unlabored respiration). negative: Wheezes, Rhonchi Cardiovascular: positive: Regular rate & rhythm. negative: Gallop/S4, Friction rub Abdomen: positive: Non-tender, No organomegaly, Nml bowel sounds, No distention. negative: Guarding, Rebound Skin: positive: Warm, Dry, Pallor Extremities: positive: Non-tender, No pedal edema Neurologic/Psychiatric: positive: Oriented x3 (But cannot remember things such as the last time she drank, when she last saw her mom, which she ate for breakfast), CN's nml (2-12). negative: Motor nml (Very slow response times,), Sensation nml (Loss of light touch sensation in her toes and about a third up her foot) - Lab Results Fish Bones: 03/23/20 05:20 03/23/20 05:20 Other Labs: Lab Results x24hrs 03/23/20 03/23/20 03/23/20 Range/Units 05:20 05:20 05:20 WBC (4.8-10.8) x10^3/uL RBC (4.20-5.40) 10^6/uL Hgb (12.0-16.0) g/dL Hct (37.0-47.0) % MCV (81.0-99.0) fL MCH (27.0-31.0) pg MCHC (32.0-36.0) g/dL RDW (12.0-15.0) % Plt Count (130-450) 10^3/uL MPV (7.9-10.8) fL Neut # (Auto) (1.5-6.6) 10^3/uL Lymph # (Auto) (1.5-3.5) 10^3/uL Deuel # (Auto) (0.0-1.0) 10^3/uL Eos # (Auto) (0.0-0.7) 10^3/uL Baso # (Auto) (0.0-0.1) 10^3/uL Absolute Nucleated RBC x10^3/uL Nucleated RBC % /100WBC VBG pH 7.465 H (7.31-7.41) Ionized Calcium 1.15 (1.15-1.33) mmol/L Sodium 136 (135-145) mmol/L Potassium 4.3 (3.5-5.0) mmol/L Chloride 103 (101-111) mmol/L Carbon Dioxide 23 (21-32) mmol/L Anion Gap 10.0 (6-13) BUN 8 (6-20) mg/dL Creatinine 0.5 (0.4-1.0) mg/dL Estimated GFR (MDRD) 149 (>89) Glucose 92 (70-100) mg/dL Calcium 8.6 (8.5-10.3) mg/dL Phosphorus 4.7 H (2.5-4.6) mg/dL Magnesium 2.0 (1.7-2.8) mg/dL B-Natriuretic Peptide 1139 H (5-100) pg/mL Albumin 2.8 L (3.2-5.5) g/dL 03/23/20 Range/Units 05:20 WBC 7.2 (4.8-10.8) x10^3/uL RBC 2.81 L (4.20-5.40) 10^6/uL Hgb 9.4 L (12.0-16.0) g/dL Hct 29.8 L (37.0-47.0) % MCV 106.0 H (81.0-99.0) fL MCH 33.5 H (27.0-31.0) pg MCHC 31.5 L (32.0-36.0) g/dL RDW 18.6 H (12.0-15.0) % Plt Count 277 (130-450) 10^3/uL MPV 9.5 (7.9-10.8) fL Neut # (Auto) 3.7 (1.5-6.6) 10^3/uL Lymph # (Auto) 2.5 (1.5-3.5) 10^3/uL Deuel # (Auto) 0.9 (0.0-1.0) 10^3/uL Eos # (Auto) 0.1 (0.0-0.7) 10^3/uL Baso # (Auto) 0.1 (0.0-0.1) 10^3/uL Absolute Nucleated RBC 0.00 x10^3/uL Nucleated RBC % 0.0 /100WBC VBG pH (7.31-7.41) Ionized Calcium (1.15-1.33) mmol/L Sodium (135-145) mmol/L Potassium (3.5-5.0) mmol/L Chloride (101-111) mmol/L Carbon Dioxide (21-32) mmol/L Anion Gap (6-13) BUN (6-20) mg/dL Creatinine (0.4-1.0) mg/dL Estimated GFR (MDRD) (>89) Glucose (70-100) mg/dL Calcium (8.5-10.3) mg/dL Phosphorus (2.5-4.6) mg/dL Magnesium (1.7-2.8) mg/dL B-Natriuretic Peptide (5-100) pg/mL Albumin (3.2-5.5) g/dL ABX Reporting Has patient been on IV antibiotics over the past 48 hours?: No Assessment/Plan - Problem List (1) Acute respiratory failure with hypoxia Impression: Resolved This likely secondary to heart failure given her elevated BNP. Imaging was concerning for pulmonary edema on admission. She initially required BiPAP but is and was saturating well on 2 L of oxygen via nasal cannula by second day. Off of BiPAP since the afternoon of March 22. She is 94 to 99% on room air since that time. She is on Lasix IV twice daily. Hold off on antibiotics as there is no evidence of pneumonia at this time. Transferred out of ICU 03/22 (2) Acute on chronic systolic CHF (congestive heart failure) Impression: This is suspected given her BNP is elevated at 2700 and imaging is concerning for pulmonary edema. Suspect she may have alcoholic cardiomyopathy given her history of alcohol use. Estrada out 03/22. Echocardiogram August 2018 was done for pulmonary edema. She did not have valvular heart disease at that time and her ejection fraction was 70 to 75%. It was essentially a normal echocardiogram. Echocardiogram done March 21 with this admission shows her ejection fraction to have dropped to 45 to 50%, right ventricle is normal in size and function, and no significant valvular abnormality. RVSP at rest is 28 mmHg. BNP has improved. She had 2787 yesterday and is 1139 today. Plan: We will continue diuresis with Lasix IV twice daily. Already on Zestril 5 mg daily, metoprolol 12.5 mg p.o. twice daily Continue with daily weights and strict I's and O's. Continue to trend BNP. Verify if she has a cruller maker, if not, will need outpatient referral to [facility]. Start cardiac rehab program in the outpatient setting I have discussed the case with her dad since she has moderate cognitive deficits due to her alcohol abuse. With that in mind, I typed up a quick report for her and her dad. They will pass this on to their mother who use to be a nurse here. The note given: 1. You have a new diagnosis of reduced muscle contraction of the heart. It is called systolic congestive heart failure. In 2018 you are able to push out 70% of your blood from the left side of your heart, with this admission your down to 45%. 2. You will need to start 3 new medicines for this. Lasix, metoprolol, lisinopril. 3. You will need to see your primary care provider in the next 1 to 2 weeks for follow-up of these medications because they need to check blood work called BN P and BMP. 4. I have referred you to [facility] for rehabilitation here at the hospital. Hopefully they will call you in the next 1 to 2 weeks. 5. Your primary care provider will need to make a referral to a cruller maker. I am recommending [facility] since they do come to the hospital 2-3 times a week and it would be more convenient for you. (3) Alcoholism Impression: We will continue multivitamin and thiamine during his hospitalization. Her LFTs are improving. (4) Anemia Impression: Continues to improve with no evidence of bleeding. This was likely due to dilutional due to IV fluid she received during her prior hospitalization. She started at 7.6 g of hemoglobin and is steadily increased on her own and she is 9.4 g today. Plan: Continue to monitor while hospitalized. (5) GERD (gastroesophageal reflux disease) Impression: Continue Protonix.
[2020-03-24] MEDS: FUROSEMIDE 20 MG/2 ML VIAL IVP SCH (05:36)
[2020-03-24] MEDS: PANTOPRAZOLE 40 MG VIAL IVP SCH (05:36)
[2020-03-24] MEDS: SODIUM CHLORIDE FLUSH 0.9% 10 ML SYRINGE IVP PRN ×2 (05:36→13:19)
[2020-03-24] MEDS: oxyCODONE 5 MG TABLET PO PRN ×2 (05:36→15:56)
[2020-03-24 05:45] LABS: BASOPHILS # (AUTO) 0.1 10^3/uL (0.0-0.1); BASOPHILS % (AUTO) 1.2 %; EOSINOPHILS # (AUTO) 0.1 10^3/uL (0.0-0.7); EOSINOPHILS % (AUTO) 1.1 %; HGB - HEMOGLOBIN 10.6 g/dL (12.0-16.0); LYMPHOCYTES # (AUTO) 3.3 10^3/uL (1.5-3.5); LYMPHOCYTES % (AUTO) 43.4 %; MEAN CORPUSCULAR HEMOGLOBIN 33.8 pg (27.0-31.0); MEAN CORPUSCULAR HGB CONC 31.6 g/dL (32.0-36.0); MEAN CORPUSCULAR VOLUME 106.7 fL (81.0-99.0); MEAN PLATELET VOLUME 9.3 fL (7.9-10.8); MONOCYTES # (AUTO) 0.7 10^3/uL (0.0-1.0); MONOCYTES % (AUTO) 9.7 %; NEUTROPHILS # (AUTO) 3.3 10^3/uL (1.5-6.6); NEUTROPHILS % (AUTO) 43.5 %; PLT - PLATELET COUNT 352 10^3/uL (130-450); RED BLOOD COUNT 3.14 10^6/uL (4.20-5.40); RED CELL DISTRIBUTION WIDTH 18.5 % (12.0-15.0); WHITE BLOOD COUNT 7.5 x10^3/uL (4.8-10.8)
[2020-03-24 05:54] LABS: VBG PH 7.449 (7.31-7.41)
[2020-03-24 06:05] LABS: ALBUMIN 3.6 g/dL (3.2-5.5); CALCIUM 9.5 mg/dL (8.5-10.3); CREATININE 0.6 mg/dL (0.4-1.0); PHOSPHORUS 5.4 mg/dL (2.5-4.6)
[2020-03-24] MEDS: THIAMINE 100 MG TABLET PO SCH (09:18)
[2020-03-24] MEDS: MULTIVITAMIN TABLET PO SCH (09:18)
[2020-03-24] MEDS: ENOXAPARIN 40 MG/0.4 ML SYRINGE SUBQ SCH (09:19)
[2020-03-24] MEDS: lisinopriL 5 MG TABLET PO SCH (09:19)
[2020-03-24] MEDS: SPIRONOLACTONE 25 MG TABLET PO SCH (09:19)
[2020-03-24] MEDS: METOPROLOL SUCCINATE 25 MG TABLET PO SCH ×2 (09:19→20:15)
[2020-03-24] MEDS: SODIUM CHLORIDE FLUSH 0.9% 10 ML SYRINGE IVP SCH ×2 (09:20→17:51)
--- NOTE | 2020-03-24 10:06 | XRAY Report ---
PROCEDURE: Chest 1 View X-Ray INDICATIONS: F/U poss infiltrates R base and BIBIANA TECHNIQUE: One view of the chest was acquired. COMPARISON: Prior chest plain film 03/21/2020 and 03/22/2020. FINDINGS: Surgical changes and devices: None. Lungs and pleura: No pleural effusions or pneumothorax. Lungs are much improved, with a small degre e of residual alveolar infiltration at the right lung and minimal such changes remaining at the left lung.. Mediastinum: Mediastinal contours appear normal. Heart size is normal. Bones and chest wall: No suspicious bony lesions. Overlying soft tissues appear unremarkable. IMPRESSION: Resolving bilateral pneumonia pattern, right greater than left, with minimal residual on the left and mild residual on the right. No effusion is seen. Reviewed by: Miguel Montaño MD on 03/24/2020 10:05 AM PDT Approved by: Miguel Montaño MD on 03/24/2020 10:05 AM PDT Station ID: [id number]
--- NOTE | 2020-03-24 12:20 | PROVIDER PROGRESS NOTE ---
Assessment/Plan - Problem List (1) Pulmonary edema Qualifiers: Chronicity: acute Qualified Code(s): J81.0 - Acute pulmonary edema Assessment/Plan: She presented with CHF on CXR but could not rule out pneumonia. Today's CXR is being read as infiltrates. Will treat for Health-care associated pneumonia. Stop the iv bid Diuretic and change to oral meds. Follow I's and O's and daily weights. (2) HCAP (healthcare-associated pneumonia) Assessment/Plan: Start IV Levaquin daily and IV vancomycin. Plan 2 days of IV management, then will transition to p.o. antibiotics. (3) Alcoholic cardiomyopathy Assessment/Plan: The LVEF is 45% by Echo done this admission, several years ago the EF was 70%. This is presumably and Alcoholic Cardiomyopathy from her alcohol abuse. Her at hs-troponins were normal at admission. This was presumably an acute on chronic systolic heart failure exacerbation causing the pulmonary edema. Meds for depressed EF have been started. She needs Cardiology F/U and alcohol abstinence. (4) Acute on chronic systolic and diastolic heart failure, NYHA class 3 Assessment/Plan: She is approximately 2 to 3 L in negative fluid balance since admission, on IV twice daily Lasix. Will change her metoprolol tartrate to metoprolol succinate and increase the dose slightly because resting heart rate is 80-100. Continue HEMA. Start spironolactone. Stop IV Lasix, and determine if she needs any p.o. Lasix starting tomorrow.. She will need outpatient Cardiology follow-up, which has already been communicated to her mother. (5) Anemia Assessment/Plan: Continues to improve with no evidence of bleeding. This was likely dilutional due to IV fluid she received during her prior recent hospitalization for Hyponatremia. She started at 7.6 g of hemoglobin and is steadily increased on her own and she is 9.4 g yesterday and 10.6 today. (6) Alcoholism Assessment/Plan: At the last recent admission for hyponatremia, she had just stopped drinking her 1/2 box of wine daily. At that admission she had elevated INR, elevated LFTs, but not a high ammonia level or low platelet count. During this hospitalization she is somewhat more "foggy". Suspect she might have hepatic encephalopathy but she has no asterixis. Will follow ammonia level. Continue daily thiamine replacement. (7) Acute respiratory failure with hypoxia Assessment/Plan: Hypoxia has resolved with IV meds for diuresis - Current Meds Current Meds: Current Medications Generic Name Dose Route Start Last Admin Trade Name Freq PRN Reason Stop Dose Admin Acetaminophen 650 mg 03/22/20 16:55 03/23/20 17:59 Tylenol PO 650 mg Q4HR PRN Administration Pain or Fever > 38C (100.4F) Diphenhydramine HCl 25 mg 03/22/20 23:20 03/23/20 20:13 Benadryl PO 25 mg QPM PRN Administration Insomnia Enoxaparin Sodium 40 mg 03/21/20 09:00 03/24/20 09:19 Lovenox SUBQ 40 mg DAILY EDISON Administration Lisinopril 5 mg 03/23/20 09:00 03/24/20 09:19 Zestril PO 5 mg DAILY EDISON Administration Metoprolol Succinate 25 mg 03/24/20 09:00 03/24/20 09:19 Toprol Xl PO 25 mg BID EDISON Administration Multivitamins 1 tab 03/22/20 10:00 03/24/20 09:18 Theragran PO 1 tab DAILYWM EDISON Administration Oxycodone HCl 5 mg 03/22/20 21:54 03/24/20 05:36 Roxicodone PO 5 mg Q4HR PRN Administration PAIN Pantoprazole Sodium 40 mg 03/21/20 07:00 03/24/20 05:36 Protonix IVP 40 mg QDAC EDISON Administration Sodium Chloride 10 ml 03/21/20 09:00 03/24/20 09:20 Normal Saline Flush 0.9% IVP 10 ml 0100,0900,1700 EDISON Administration Sodium Chloride 10 ml 03/21/20 06:05 03/24/20 05:36 Normal Saline Flush 0.9% IVP 10 ml PRN PRN Administration NEEDED PER PROVIDER ORDERS Spironolactone 25 mg 03/24/20 09:00 03/24/20 09:19 Aldactone PO 25 mg DAILY EDISON Administration Thiamine HCl 100 mg 03/22/20 10:00 03/24/20 09:18 Vitamin B-1 PO 100 mg DAILY EDISON Administration - Lab Result Fish Bone Diagrams: 03/24/20 05:22 03/24/20 05:22 - Additional Planning My Orders: My Active Orders 03/24/20 09:00 Metoprolol Succinate [Toprol Xl] 25 mg PO BID Spironolactone [Aldactone] 25 mg PO DAILY 03/25/20 06:00 FUROSEMIDE INJ 20mg VIAL [LASIX INJ 20mg VIAL] 20 mg IVP 0600 Subjective - Subjective Patient Reports: Resting Comfortably, Other (Complains of spine pain, especially after "being in bed for such a long time") Objective Vital Signs: Vital Signs - 24 hr 03/23/20 03/23/20 03/23/20 16:03 20:12 20:18 Temperature 36.7 C 36.8 C Heart Rate [ 76 102 H Brachial] Heart Rate [ Monitoring electrodes] Respiratory 18 18 Rate Blood Pressure 120/88 H Blood Pressure 118/88 H 120/88 H [Right Brachial artery] O2 Saturation 99 97 03/24/20 03/24/20 03/24/20 00:05 05:00 09:00 Temperature 36.9 C 36.7 C 36.7 C Heart Rate [ 81 83 Brachial] Heart Rate [ 121 H Monitoring electrodes] Respiratory 16 20 16 Rate Blood Pressure Blood Pressure 119/80 119/83 H 117/87 H [Right Brachial artery] O2 Saturation 96 97 96 Oxygen O2 Source Room air Oxygen Flow Rate 10 I&O (Last 24 Hrs): Intake and Output Totals x24h 03/22/20 03/23/20 03/24/20 23:59 23:59 23:59 Intake Total 1271 1775 586 Output Total 2520 950 750 Balance -1249 825 -164 General: Alert, Oriented x3 HEENT: Mucous membr. moist/pink Neck: Supple, No JVD Neuro: Alert, Non Focal, Other (No nystagmus or asterixis) Cardiovascular: Regular rate Respiratory: No respiratory distress, Breath sounds nml Abdomen: Soft Extremities: Other (1+ ankle edema) Skin: No rashes (Pale) - Results Results: Laboratory Results WBC 7.5 x10^3/uL (4.8-10.8) 03/24/20 05:22 RBC 3.14 10^6/uL (4.20-5.40) L 03/24/20 05:22 Hgb 10.6 g/dL (12.0-16.0) L 03/24/20 05:22 Hct 33.5 % (37.0-47.0) L 03/24/20 05:22 MCV 106.7 fL (81.0-99.0) H 03/24/20 05:22 MCH 33.8 pg (27.0-31.0) H 03/24/20 05:22 MCHC 31.6 g/dL (32.0-36.0) L 03/24/20 05:22 RDW 18.5 % (12.0-15.0) H 03/24/20 05:22 Plt Count 352 10^3/uL (130-450) 03/24/20 05:22 MPV 9.3 fL (7.9-10.8) 03/24/20 05:22 Neut # (Auto) 3.3 10^3/uL (1.5-6.6) 03/24/20 05:22 Lymph # (Auto) 3.3 10^3/uL (1.5-3.5) 03/24/20 05:22 [place] # (Auto) 0.7 10^3/uL (0.0-1.0) 03/24/20 05:22 Eos # (Auto) 0.1 10^3/uL (0.0-0.7) 03/24/20 05:22 Baso # (Auto) 0.1 10^3/uL (0.0-0.1) 03/24/20 05:22 Absolute Nucleated RBC 0.00 x10^3/uL 03/24/20 05:22 Nucleated RBC % 0.0 /100WBC 03/24/20 05:22 PT 12.4 secs (9.9-12.6) 03/21/20 04:12 INR 1.1 (0.8-1.2) 03/21/20 04:12 APTT 29.3 secs (24.9-33.3) 03/21/20 04:12 Bld Gas Analysis Time 62803/21/20 06:20 Sample Site RIGHT RADIAL 03/21/20 06:20 ABG pH 7.40 (7.35-7.45) 03/21/20 06:20 ABG pCO2 32 mmHg (34-45) L 03/21/20 06:20 ABG pO2 67 mmHg (80-100) L 03/21/20 06:20 ABG HCO3 19.4 mmol/L (22.0-26.0) L 03/21/20 06:20 ABG Total CO2 20.4 MMOL/L (21.0-29.0) L 03/21/20 06:20 ABG O2 Saturation 91 % (94-98) L 03/21/20 06:20 ABG Base Excess -4.5 mmol/L (-2.0-3.0) L 03/21/20 06:20 [place] Test POSITIVE 03/21/20 06:20 VBG pH 7.449 (7.31-7.41) H 03/24/20 05:22 Ionized Calcium 1.15 mmol/L (1.15-1.33) 03/24/20 05:22 Respiration Rate 20 b/min 03/21/20 06:20 O2 Delivery Device BiPAP 03/21/20 06:20 Vent Mode SYNCHRONOUS/TIMES 03/21/20 06:20 FiO2 50.00 03/21/20 06:20 Pressure Support Vent 12 cmH2O 03/21/20 06:20 EPAP 5 cmH2O 03/21/20 06:20 IPAP 12 cmH2O 03/21/20 06:20 Sodium 139 mmol/L (135-145) 03/24/20 05:22 Potassium 4.1 mmol/L (3.5-5.0) 03/24/20 05:22 Chloride 103 mmol/L (101-111) 03/24/20 05:22 Carbon Dioxide 25 mmol/L (21-32) 03/24/20 05:22 Anion Gap 11.0 (6-13) 03/24/20 05:22 BUN 12 mg/dL (6-20) 03/24/20 05:22 Creatinine 0.6 mg/dL (0.4-1.0) 03/24/20 05:22 Estimated GFR (MDRD) 121 (>89) 03/24/20 05:22 Glucose 95 mg/dL (70-100) 03/24/20 05:22 Lactic Acid 0.9 mmol/L (0.5-2.2) 03/21/20 05:15 Calcium 9.5 mg/dL (8.5-10.3) 03/24/20 05:22 Phosphorus 5.4 mg/dL (2.5-4.6) H 03/24/20 05:22 Magnesium 2.0 mg/dL (1.7-2.8) 03/24/20 05:22 Total Bilirubin 0.5 mg/dL (0.2-1.0) 03/21/20 04:12 AST 73 IU/L (10-42) H 03/21/20 04:12 ALT 43 IU/L (10-60) 03/21/20 04:12 Alkaline Phosphatase 132 IU/L (42-121) H 03/21/20 04:12 Total Creatine Kinase 24 IU/L (22-269) 03/21/20 04:12 Troponin I High Sens 9.5 ng/L (2.3-14.8) 03/21/20 10:31 B-Natriuretic Peptide 1139 pg/mL (5-100) H 03/23/20 05:20 Total Protein 6.5 g/dL (6.7-8.2) L 03/21/20 04:12 Albumin 3.6 g/dL (3.2-5.5) 03/24/20 05:22 Globulin 3.4 g/dL (2.1-4.2) 03/21/20 04:12 Albumin/Globulin Ratio 0.9 (1.0-2.2) L 03/21/20 04:12 Lipase 75 U/L (22-51) H 03/21/20 04:12 TSH 5.83 uIU/mL (0.34-5.60) H 03/21/20 04:12 Urine Color YELLOW 03/21/20 06:32 Urine Clarity CLEAR (CLEAR) 03/21/20 06:32 Urine pH 7.0 PH (5.0-7.5) 03/21/20 06:32 Ur Specific Isabella 1.010 (1.002-1.030) 03/21/20 06:32 Urine Protein NEGATIVE mg/dL (NEGATIVE) 03/21/20 06:32 Urine Glucose (UA) NEGATIVE mg/dL (NEGATIVE) 03/21/20 06:32 Urine Ketones NEGATIVE mg/dL (NEGATIVE) 03/21/20 06:32 Urine Occult Blood NEGATIVE (NEGATIVE) 03/21/20 06:32 Urine Nitrite NEGATIVE (NEGATIVE) 03/21/20 06:32 Urine Bilirubin NEGATIVE (NEGATIVE) 03/21/20 06:32 Urine Urobilinogen 0.2 (NORMAL) E.U./dL (NORMAL) 03/21/20 06:32 Ur Leukocyte Esterase NEGATIVE (NEGATIVE) 03/21/20 06:32 Ur Microscopic Review NOT INDICATED 03/21/20 06:32 Urine Culture Comments NOT INDICATED 03/21/20 06:32 Urine HCG, Qual NEGATIVE 03/21/20 06:32 Nasal Screen MRSA (PCR) NEGATIVE (NEGATIVE) 03/21/20 06:50 Salicylates < 6.0 mg/dL 03/21/20 04:12 Urine Opiates Screen NEGATIVE (NEGATIVE) 03/21/20 06:32 Ur Oxycodone Screen NEGATIVE (NEGATIVE) 03/21/20 06:32 Urine Methadone Screen NEGATIVE (NEGATIVE) 03/21/20 06:32 Ur Propoxyphene Screen NEGATIVE (NEGATIVE) 03/21/20 06:32 Acetaminophen < 10 ug/mL (10-30) L 03/21/20 04:12 Ur Barbiturates Screen NEGATIVE (NEGATIVE) 03/21/20 06:32 Ur Tricyclics Screen NEGATIVE (NEGATIVE) 03/21/20 06:32 Ur Phencyclidine Scrn NEGATIVE (NEGATIVE) 03/21/20 06:32 Ur Amphetamine Screen NEGATIVE (NEGATIVE) 03/21/20 06:32 U Methamphetamines Scrn NEGATIVE (NEGATIVE) 03/21/20 06:32 U Benzodiazepines Scrn NEGATIVE (NEGATIVE) 03/21/20 06:32 Urine Cocaine Screen NEGATIVE (NEGATIVE) 03/21/20 06:32 U Cannabinoids Screen NEGATIVE (NEGATIVE) 03/21/20 06:32 Ethyl Alcohol < 5.0 mg/dL 03/21/20 04:12 Coronavirus (PCR) NEGATIVE 03/21/20 05:20
[2020-03-24] MEDS: levoFLOXacin 750 MG/150 ML 750 MG/150 ML BAG IV SCH (13:11)
[2020-03-24] MEDS: ACETAMINOPHEN 325 MG TABLET PO PRN ×2 (15:10→20:15)
[2020-03-24] MEDS: VANCOMYCIN INJ 1 GM in SODIUM CHLORIDE 0.9% 250 ML IV SCH (17:51)
[2020-03-24] MEDS: diphenhydrAMINE 25 MG CAPSULE PO PRN (19:12)
[2020-03-25] MEDS: SODIUM CHLORIDE FLUSH 0.9% 10 ML SYRINGE IVP SCH ×2 (01:56→09:01)
[2020-03-25 05:46] LABS: BASOPHILS # (AUTO) 0.1 10^3/uL (0.0-0.1); BASOPHILS % (AUTO) 0.9 %; EOSINOPHILS # (AUTO) 0.1 10^3/uL (0.0-0.7); EOSINOPHILS % (AUTO) 0.8 %; HGB - HEMOGLOBIN 10.8 g/dL (12.0-16.0); LYMPHOCYTES # (AUTO) 2.3 10^3/uL (1.5-3.5); LYMPHOCYTES % (AUTO) 25.6 %; MEAN CORPUSCULAR HGB CONC 31.8 g/dL (32.0-36.0); MEAN CORPUSCULAR VOLUME 106.9 fL (81.0-99.0); MEAN PLATELET VOLUME 9.2 fL (7.9-10.8); MONOCYTES # (AUTO) 0.6 10^3/uL (0.0-1.0); MONOCYTES % (AUTO) 7.3 %; NEUTROPHILS # (AUTO) 5.7 10^3/uL (1.5-6.6); NEUTROPHILS % (AUTO) 64.6 %; PLT - PLATELET COUNT 347 10^3/uL (130-450); RED BLOOD COUNT 3.18 10^6/uL (4.20-5.40); RED CELL DISTRIBUTION WIDTH 17.9 % (12.0-15.0); WHITE BLOOD COUNT 8.8 x10^3/uL (4.8-10.8)
[2020-03-25 05:57] LABS: CALCIUM 9.3 mg/dL (8.5-10.3); CREATININE 0.7 mg/dL (0.4-1.0)
[2020-03-25] MEDS ORDERED: FUROSEMIDE 20 MG/2 ML VIAL IVP SCH (06:00)
[2020-03-25] MEDS: PANTOPRAZOLE 40 MG VIAL IVP SCH (06:18)
[2020-03-25] MEDS: SODIUM CHLORIDE FLUSH 0.9% 10 ML SYRINGE IVP PRN (06:19)
[2020-03-25] MEDS: VANCOMYCIN INJ 1 GM in SODIUM CHLORIDE 0.9% 250 ML IV SCH (06:31)
--- NOTE | 2020-03-25 07:55 | Discharge Plan ---
Discharge Plan Problem Reviewed?: Yes Disposition: Home, Self Care Condition: Stable Prescriptions: Spironolactone [Aldactone] 25 mg PO DAILY #30 tablet Saccharomyces Boulardii [Florastor] 250 mg PO DAILY #5 capsule Levofloxacin [Levaquin] 750 mg PO DAILY #5 tablet lisinopriL [Lisinopril] 2.5 mg PO DAILY #30 tablet Metoprolol Succinate [Toprol Xl] 25 mg PO BID #60 tablet Diet: Cardiac Activity Restrictions: Activity as Tolerated Shower Restrictions: No Instruction Topics: Edema Pulmonary Health Concerns: You were admitted with fluid in your lungs and under it was a pneumonia. We found a weak heart muscle which caused the fluid in the lungs to accumulate and you are on new medicines for this. You require several more days of antibiotic for treating the pneumonia, plus a probiotic. All new prescriptions were electronically sent to your [facility] pharmacy in [place]. Please see your PCP (appointment on 03/31/2020), for hospital follow-up and to get a referral to a Department Editor soon, for further evaluation and management of your weak heart muscle. After the heart has been evaluated, you qualify for attending CHF education classes here at the "[facility]". You would need a referral from your Department Editor or PCP to start that. Stay off of alcohol intake entirely. Plan of Treatment: As above. Care Goals: Improvement in symptoms and stabilization are the goals. Assessment: The patient understands and is agreeable with the plan. A written list of instructions was provided to the patient and family. Additional Instructions or Follow Up instructions: You have new or worsening symptoms, call your PCP for advice or come to the ER. Follow-Up Care: [facility] - CHF Classes No Smoking: If you smoke, Please STOP! Call for help. Follow-up with: Dorothea Meng PA [Provider Admit Priv/Credential] -
[2020-03-25] MEDS: SPIRONOLACTONE 25 MG TABLET PO SCH (08:57)
[2020-03-25] MEDS: THIAMINE 100 MG TABLET PO SCH (08:57)
[2020-03-25] MEDS: lisinopriL 5 MG TABLET PO SCH (08:58)
[2020-03-25] MEDS: MULTIVITAMIN TABLET PO SCH (08:58)
[2020-03-25] MEDS: ENOXAPARIN 40 MG/0.4 ML SYRINGE SUBQ SCH (09:00)
[2020-03-25] MEDS ORDERED: DOCUSATE SODIUM 250 MG CAPSULE PO SCH (09:00)
[2020-03-25] MEDS ORDERED: polyethylene glycoL 3350 17 GM PACKET PO SCH (09:00)
[2020-03-25] MEDS: METOPROLOL SUCCINATE 25 MG TABLET PO SCH (09:02)
--- NOTE | 2020-03-25 10:29 | DISCHARGE SUMMARY ---
Discharge Summary Admit Date: 03/21/20 Discharge Date: 03/25/20 Discharging Provider: Dr Aditi Villarreal Primary Care Provider: TESSIE Meng Code Status: Attempt Resuscitation Condition at Discharge: Stable Discharge Disposition: 01 Home, Self Care - [facility] History of Present Illness: From the admission H&P of Dr Karla Denis: Patient is a 24-year-old female who presented to the ED with acute onset of dyspnea. This started around 1 AM with coughing fit. She was just discharged from the hospital yesterday for 4-day stay due to hyponatremia. This was likely related to alcohol use. Her sodium level had corrected by the time of discharge. Currently she is very lethargic and on Bipap thus unable to provide this history. The history was mainly obtained from her mother. The patient did not report any chest pain but complained of chest soreness from coughing. She denied abdominal pain, fever or chills. Upon presentation her oxygen saturation was in the 80s and her respiratory rate was as high as 40s. In the emergency room work-up included a BNP which was elevated at 2600. CT angiogram of the chest was negative for pulmonary embolus but showed pulmonary edema and was also suspicious for pneumonia. As a result of her presentation she is being admitted for further treatment. - HOSPITAL COURSE Hospital Course: (1) Acute respiratory failure with hypoxia She required BIPAP to oxygenate and was put on iv b.i.d. Lasix. Her hypoxia resolved quickly and she was titrated down off supplemental oxygen and was saturating adequately on room air. (2) Pulmonary edema She presented with CHF on CXR and elevated BNP of 2600. She received iv b.i.d Lasix for several days and the BNP improved daily and was 1100. She was overall 4L (-) in fluid balance. The troponins were all normal, and the etiology of pulmonary edema was felt to be the large recent iv saline volume she had received at the last hospitalization for severe hyponatremia. Also, an Echo was done this admission, which showed a new cardiomyopathy (see below). (3) HCAP (healthcare-associated pneumonia) She presented with CHF on CXR but could not rule out pneumonia. There was no cough, fever or elevated WBC at admission and she did not get empiric antibiotics. After several days of diuresis, a repeat CXR was done that was read as indeed having infiltrates. She was therefore started on IV Levaquin daily and IV vancomycin for a presumed health-care acquired pneumonia (given her recent hospitalization and discharge that was just 24 hours before this current admission). She got 2 days of iv antibiotics, then was sent home to finish 5 more days of Levaquin plus Florastor. (4) Alcoholic cardiomyopathy The LVEF was 45%, by Echo done this admission, whereas several years ago the EF was 70%. She presumably has an Alcoholic Cardiomyopathy from her history of alcohol abuse. This presentation with pulmonary edema was presumably an acute on chronic systolic heart failure exacerbation. She was started on B-dora, HEMA-I and Spironolactone and discharged on these. She needs a referral to Cardiology for further evaluation and management and she needs alcohol abstinence. (5) Acute on chronic systolic and diastolic heart failure, NYHA class 3 She was 4L negative in fluid balance this admission, after treatment with IV twice daily Lasix. She was started on metoprolol tartrate, changed to metoprolol succinate to manage a resting heart rate of 80-100. She was put on a low dose of HEMA-I. The Lasix was stopped and she was discharged on Spironolactone. She will need outpatient Cardiology, which was communicated to her mother (a recently retired RN). (6) Anemia She started at 7.6 g of hemoglobin which steadily increased on its own, to 9.4 >> 10.6>> 10.8 at discharge. There was no evidence of bleeding. This was likely hemodilutional, due to the IV fluid she had received during her recent hospitalization for severe hyponatremia. (7) Alcoholism At the last recent admission for hyponatremia, she had just stopped drinking her daily 1/2 box of wine. At that admission she had elevated INR, elevated LFTs, but not a high ammonia level or low platelet count then. During this hospitalization, the tox screen was neg for alcohol, but she was somewhat more "foggy" and had intermittent asterixis. We continued the daily thiamine replacement. Social Work arranged for her to have an outpatient appointment for mental health evaluation. 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 She was evaluated by Physical Therapy. A front wheel walker was required at discharge and the Physical Therapist advised that she have outpatient PT for further rehab. - ALLERGIES Allergies/Adverse Reactions: Allergies Allergy/AdvReac Type Severity Reaction Status Date / Time amoxicillin [From Augmentin] Allergy FLUSHING,BL Verified 03/21/20 03:58 OTCHINESS clavulanic acid Allergy FLUSHING,BL Verified 03/21/20 03:58 [From Augmentin] OTCHINESS - MEDICATIONS Home Medications: Ambulatory Orders Medication Instructions Recorded Confirmed Medroxyprogesterone Acetate 150 mg IM Q90D 03/16/20 03/21/20 [Depo-Provera] Arnica Gel 1 applic TOP TID PRN 03/17/20 03/21/20 Multivitamin [Theragran] 1 tab PO DAILYWM #30 tablet 03/20/20 03/21/20 Pantoprazole [Protonix] 40 mg PO QDAC #30 tablet 03/20/20 03/21/20 Thiamine [Vitamin B-1] 100 mg PO DAILY #30 tablet 03/20/20 03/21/20 Levofloxacin [Levaquin] 750 mg PO DAILY #5 tablet 03/25/20 Metoprolol Succinate [Toprol Xl] 25 mg PO BID #60 tablet 03/25/20 Saccharomyces Boulardii [Florastor] 250 mg PO DAILY #5 capsule 03/25/20 Spironolactone [Aldactone] 25 mg PO DAILY #30 tablet 03/25/20 lisinopriL [Lisinopril] 2.5 mg PO DAILY #30 tablet 03/25/20 - PHYSICAL EXAM AT DISCHARGE General Appearance: positive: No acute distress, Alert Eyes Bilateral: positive: Normal inspection ENT: positive: ENT inspection nml, No signs of dehydration, Other (Healed skin at the piercing sites of both cheeks, continued piercing hardware in place of the lower jaw which appears normal) Neck: positive: Nml inspection, No JVD Respiratory: positive: No respiratory distress, Breath sounds nml Cardiovascular: positive: Regular rate & rhythm, No murmur Abdomen: positive: Non-tender, No distention Skin: positive: Pallor Extremities: positive: Other (Trace ankle eema) Neurologic/Psychiatric: positive: Oriented x3, Other (Arm asterixis. 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 Patient needs referral to Cardiology soon, for further evaluation and management. - TIME SPENT Time Spent in Discharge (Minutes): 60
[2020-03-25] MEDS: diphenhydrAMINE 25 MG CAPSULE PO PRN (11:31)
[2020-03-25] MEDS: levoFLOXacin 750 MG/150 ML 750 MG/150 ML BAG IV SCH (14:03)
[2020-03-25 16:25] VITALS: BP 121/95
== END 2020-03-25 16:15 | disposition home or self-care (01) | DRG 291 ==
LOC: EDUNIT# → ED 03:49 → ICU 06:05 → MS2 03-22 20:30
PROVIDERS: ADMIT Internal Medicine; ATTEND Internal Medicine
DX: I50.43 Acute on chronic combined systolic (congestive) and diastolic (congestive) heart failure (principal); J96.01 Acute respiratory failure with hypoxia; J18.9 Pneumonia, unspecified organism; I42.6 Alcoholic cardiomyopathy; F10.288 Alcohol dependence with other alcohol-induced disorder; G62.1 Alcoholic polyneuropathy; Y95 Nosocomial condition; D64.9 Anemia, unspecified; Z20.828 Contact with and (suspected) exposure to other viral communicable diseases; K21.9 Gastro-esophageal reflux disease without esophagitis; F17.210 Nicotine dependence, cigarettes, uncomplicated; Z74.09 Other reduced mobility; Z87.01 Personal history of pneumonia (recurrent)
CPT/HCPCS: 36415; 36600; 51702; 71045; 71275; 80048; 80053; 80306; 80307; 80320; 80329; 81003; 81025; 82040; 82140; 82330; 82550; 82803; 83605; 83690; 83735; 83880; 84100; 84443; 84484; 85025; 85610; 85730; 87150; 87635; 93005; 93306; 94660; 96365; 96366; 96368; 96375; 97161; 99285; 99291; A9270; J1650; J2060; J3370; J3411; Q9967; 81001; 81599; 87086

== ENCOUNTER 2020-03-26 17:40 | Emergency (ER) | payer MEDICAID ==
[2020-03-26] MEDS ORDERED: SODIUM CHLORIDE 0.9% 1,000 ML IV STA (17:54)
--- NOTE | 2020-03-26 18:24 | ED Physician Documentation ---
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 She states she used to drink approximately 2 bottles of wine per day. Has not drank in several weeks. Was recently admitted for hyponatremia and hypokalemia. These were corrected. She was then readmitted with respiratory distress. She appeared to have pulmonary edema and bilateral pneumonia. She was started on vancomycin and Levaquin. Approximately 2 days prior to being discharged from the hospital she developed generalized weakness and difficulty walking. She was seen by physical therapy and given a walker for home. She has had increasing weakness at home over the past 24 hours. Was discharged yesterday. Is having numbness and tingling in the bilateral feet. Occasional headaches. Has not drink any alcohol. No fevers. She is still on Levaquin at home. She was admitted on March 16 with a sodium of 104. This was corrected. Review of Systems Ten Systems: 10 systems reviewed and negative Constitutional: denies: Fever, Chills Throat: denies: Sore throat Cardiac: denies: Chest pain / pressure GI: denies: Nausea, Vomiting, Diarrhea Skin: denies: Rash Musculoskeletal: denies: Neck pain, Back pain Neurologic: reports: Generalized weakness, Other (Patient is also had changes in her speech pattern over the past 3 days, intermittently yells a word or 2.). 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 : None HEENT: None Psych: Depression Musculoskeletal: None Derm: None - Past Surgical History Past Surgical History: No - Present Medications Home Medications: Ambulatory Orders Medication Instructions Recorded Confirmed Medroxyprogesterone Acetate 150 mg IM Q90D 03/16/20 03/21/20 [Depo-Provera] Arnica Gel 1 applic TOP TID PRN 03/17/20 03/21/20 Multivitamin [Theragran] 1 tab PO DAILYWM #30 tablet 03/20/20 03/21/20 Pantoprazole [Protonix] 40 mg PO QDAC #30 tablet 03/20/20 03/21/20 Thiamine [Vitamin B-1] 100 mg PO DAILY #30 tablet 03/20/20 03/21/20 Levofloxacin [Levaquin] 750 mg PO DAILY #5 tablet 03/25/20 Metoprolol Succinate [Toprol Xl] 25 mg PO BID #60 tablet 03/25/20 Saccharomyces Boulardii [Florastor] 250 mg PO DAILY #5 capsule 03/25/20 Spironolactone [Aldactone] 25 mg PO DAILY #30 tablet 03/25/20 lisinopriL [Lisinopril] 2.5 mg PO DAILY #30 tablet 03/25/20 - Allergies Allergies/Adverse Reactions: Allergies Allergy/AdvReac Type Severity Reaction Status Date / Time amoxicillin [From Augmentin] Allergy FLUSHING,BL Verified 03/21/20 03:58 OTCHINESS clavulanic acid Allergy FLUSHING,BL Verified 03/21/20 03:58 [From Augmentin] OTCHINESS - Social History Does the pt smoke?: Yes Smoking Status: Former smoker Does the pt drink ETOH?: Yes Does the pt have substance abuse?: No - Immunizations Immunizations are current?: Yes - POLST Patient has POLST: No POLST Status: Full Code PD ED PE NORMAL - Vitals Vital signs reviewed: Yes - General General: Alert and oriented X 3 - HEENT HEENT: Atraumatic, PERRL, EOMI, Moist mucous membranes - Neck Neck: Supple, no meningeal sign - Cardiac Cardiac: RRR, Strong equal pulses - Respiratory Respiratory: No respiratory distress, Clear bilaterally - Abdomen Abdomen: Soft, Non tender, Non distended - Back Back: No CVA TTP, No spinal TTP - Derm Derm: Warm and dry - Extremities Extremities: No edema, No calf tenderness / cord, Other (upgoing babinski B with hyporeflexia patellar and ankle. ) - Neuro Neuro: Alert and oriented X 3, No motor deficit, No sensory deficit, Other (no asterixis. wide base, shuffling gait. ) - Psych Psych: Normal mood, Normal affect Results - Vitals Vitals: Vital Signs - 24 hr 03/26/20 03/26/20 17:43 20:23 Temperature 36.1 C L Heart Rate 78 58 L Respiratory 16 16 Rate Blood Pressure 112/85 H 125/84 H O2 Saturation 98 98 Oxygen O2 Source Room air - Labs Labs: Laboratory Tests 03/26/20 03/26/20 03/26/20 18:44 18:44 18:44 WBC 11.7 H RBC 3.57 L Hgb 11.8 L Hct 38.8 MCV 108.7 H MCH 33.1 H MCHC 30.4 L RDW 17.6 H Plt Count 393 MPV 9.6 Neut # (Auto) Not Reportable Lymph # (Auto) Not Reportable Bucks # (Auto) Not Reportable Eos # (Auto) Not Reportable Baso # (Auto) Not Reportable Absolute Nucleated RBC Not Reportable Total Counted 100 Band Neuts % (Manual) 1 Abnorm Lymph % (Manual) 0 Nucleated RBC % Not Reportable Neutrophils # (Manual) 8.3 H Lymphocytes # (Manual) 3.2 Monocytes # (Manual) 0.1 Eosinophils # (Manual) 0.1 Basophils # (Manual) 0.0 Differential Comment MANUAL DIFFERENTIAL Manual Slide Review Indicated WBC Morphology NORMAL APPEARANCE Platelet Estimate NORMAL (130-450,000) Platelet Morphology NORMAL APPEARANCE RBC Morph Micro Appear 2+ MACROCYTOSIS Sodium 139 Potassium 4.5 Chloride 104 Carbon Dioxide 22 Anion Gap 13.0 BUN 10 Creatinine 0.7 Estimated GFR (MDRD) 101 Glucose 105 H Calcium 9.8 Phosphorus 4.8 H Magnesium 2.1 Total Bilirubin 0.5 AST 66 H ALT 37 Alkaline Phosphatase 108 Ammonia Total Protein 8.7 H Albumin 4.5 Globulin 4.2 Albumin/Globulin Ratio 1.1 Lipase 44 TSH 4.45 Urine Color Urine Clarity Urine pH Ur Specific [place] Urine Protein Urine Glucose (UA) Urine Ketones Urine Occult Blood Urine Nitrite Urine Bilirubin Urine Urobilinogen Ur Leukocyte Esterase Ur Microscopic Review Urine Culture Comments Urine HCG, Qual Salicylates < 6.0 Urine Opiates Screen Ur Oxycodone Screen Urine Methadone Screen Ur Propoxyphene Screen Acetaminophen < 10 L Ur Barbiturates Screen Ur Tricyclics Screen Ur Phencyclidine Scrn Ur Amphetamine Screen U Methamphetamines Scrn U Benzodiazepines Scrn Urine Cocaine Screen U Cannabinoids Screen Ethyl Alcohol < 5.0 03/26/20 03/26/20 19:59 20:42 WBC RBC Hgb Hct MCV MCH MCHC RDW Plt Count MPV Neut # (Auto) Lymph # (Auto) Bucks # (Auto) Eos # (Auto) Baso # (Auto) Absolute Nucleated RBC Total Counted Band Neuts % (Manual) Abnorm Lymph % (Manual) Nucleated RBC % Neutrophils # (Manual) Lymphocytes # (Manual) Monocytes # (Manual) Eosinophils # (Manual) Basophils # (Manual) Differential Comment Manual Slide Review WBC Morphology Platelet Estimate Platelet Morphology RBC Morph Micro Appear Sodium Potassium Chloride Carbon Dioxide Anion Gap BUN Creatinine Estimated GFR (MDRD) Glucose Calcium Phosphorus Magnesium Total Bilirubin AST ALT Alkaline Phosphatase Ammonia 12.0 Total Protein Albumin Globulin Albumin/Globulin Ratio Lipase TSH Urine Color YELLOW Urine Clarity CLEAR Urine pH 5.0 Ur Specific [place] >=1.030 H Urine Protein NEGATIVE Urine Glucose (UA) NEGATIVE Urine Ketones NEGATIVE Urine Occult Blood NEGATIVE Urine Nitrite NEGATIVE Urine Bilirubin NEGATIVE Urine Urobilinogen 0.2 (NORMAL) Ur Leukocyte Esterase NEGATIVE Ur Microscopic Review NOT INDICATED Urine Culture Comments NOT INDICATED Urine HCG, Qual NEGATIVE Salicylates Urine Opiates Screen POSITIVE H Ur Oxycodone Screen NEGATIVE Urine Methadone Screen NEGATIVE Ur Propoxyphene Screen NEGATIVE Acetaminophen Ur Barbiturates Screen NEGATIVE Ur Tricyclics Screen NEGATIVE Ur Phencyclidine Scrn NEGATIVE Ur Amphetamine Screen NEGATIVE U Methamphetamines Scrn NEGATIVE U Benzodiazepines Scrn NEGATIVE Urine Cocaine Screen NEGATIVE U Cannabinoids Screen NEGATIVE Ethyl Alcohol - Rads (name of study) head CT Radiology: Prelim report reviewed, EMP read contemporaneously, See rad report (No acute intracranial abnormality) PD MEDICAL DECISION MAKING - ED course Complexity details: reviewed results, re-evaluated patient, considered differential, d/w patient, d/w family, d/w business information consultant ED course: Unclear etiology of her symptoms. Possible osmotic demyelination syndrome? Possible Levaquin reaction? Possible other neurologic issue. Discussed the case with Dr. Burnham, neurology plant operations vice president for [facility]. Recommends admission to the hospitalist service. Consulted at 2100, callback received at 2210. We will transfer her to [facility] in [place] for further evaluation and care. COBRA forms completed. This document was made in part using voice recognition software. While efforts are made to proofread this document, sound alike and grammatical errors may occur. Patient's to most recent discharge summaries will be included and sent with the patient. Also spoke with Dr. Madison, hospitalist who graciously accepts in transfer. 2300 Departure - Departure Disposition: 02 Transfer Acute Care Hosp Clinical Impression: Muscle weakness, Alcoholism, Neurological deficit present Condition: Stable
[2020-03-26 18:54] LABS: BASOPHILS % (AUTO) 0.6 %; EOSINOPHILS % (AUTO) 10.8 %; HGB - HEMOGLOBIN 11.8 g/dL (12.0-16.0); LYMPHOCYTES % (AUTO) 20.9 %; MEAN CORPUSCULAR HEMOGLOBIN 33.1 pg (27.0-31.0); MEAN CORPUSCULAR HGB CONC 30.4 g/dL (32.0-36.0); MEAN CORPUSCULAR VOLUME 108.7 fL (81.0-99.0); MEAN PLATELET VOLUME 9.6 fL (7.9-10.8); PLT - PLATELET COUNT 393 10^3/uL (130-450); RED BLOOD COUNT 3.57 10^6/uL (4.20-5.40); RED CELL DISTRIBUTION WIDTH 17.6 % (12.0-15.0); WHITE BLOOD COUNT 11.7 x10^3/uL (4.8-10.8)
[2020-03-26 18:57] LABS: ABNORMAL LYMPHS % (MANUAL) 0 %
[2020-03-26 19:15] LABS: BAND NEUTROPHILS % (MANUAL) 1 %; EOSINOPHILS # (MANUAL) 0.1 10^3/uL (0-0.7); LYMPHOCYTES # (MANUAL) 3.2 10^3/uL (1.5-3.5); LYMPHOCYTES % (MANUAL) 27 %; MONOCYTES # (MANUAL) 0.1 10^3/uL (0.0-1.0)
[2020-03-26 19:16] LABS: DIFFERENTIAL COMMENT MANUAL DIFFERENTIAL; PLATELET ESTIMATE, MANUAL NORMAL (130-450,000) (NORMAL); PLATELET MORPHOLOGY NORMAL APPEARANCE (NORMAL)
[2020-03-26 19:17] LABS: ACETAMINOPHEN < 10 ug/mL (10-30); ALBUMIN 4.5 g/dL (3.2-5.5); ALBUMIN/GLOBULIN RATIO 1.1 (1.0-2.2); ALKALINE PHOSPHATASE 108 IU/L (42-121); ALT ALANINE AMINOTRANSFERASE 37 IU/L (10-60); AST ASPARTATE AMINOTRANSFERASE 66 IU/L (10-42); BILIRUBIN,TOTAL 0.5 mg/dL (0.2-1.0); BUN - BLOOD UREA NITROGEN 10 mg/dL (6-20); CALCIUM 9.8 mg/dL (8.5-10.3); CARBON DIOXIDE - CO2 22 mmol/L (21-32); CHLORIDE 104 mmol/L (101-111); CREATININE 0.7 mg/dL (0.4-1.0); GLUCOSE 105 mg/dL (70-100); LIPASE 44 U/L (22-51); MAGNESIUM 2.1 mg/dL (1.7-2.8); PHOSPHORUS 4.8 mg/dL (2.5-4.6); SALICYLATE < 6.0 mg/dL; SODIUM 139 mmol/L (135-145); TOTAL PROTEIN 8.7 g/dL (6.7-8.2)
--- NOTE | 2020-03-26 20:44 | CT Report ---
PROCEDURE: HEAD WO INDICATIONS: ALOC, shuffling gait TECHNIQUE: Noncontrast 4.5 mm thick angled axial sections acquired from the foramen magnum to the vertex. For r adiation dose reduction, the following was used: automated exposure control, adjustment of mA and/or kV according to patient size. COMPARISON: None. FINDINGS: Image quality: Excellent. CSF spaces: Basal cisterns are patent. No extra-axial fluid collections. Ventricles are normal in size and shape. Brain: No midline shift. No intracranial masses or hemorrhage. Ontiveros-white matter interface is norm al. Skull and face: Calvarium and visualized facial bones are intact, without suspicious lesions. Sinuses: Visualized sinuses and mastoids are clear. IMPRESSION: CT head without acute intracranial abnormalities. Reviewed by: Butch Pineda MD on 03/26/2020 8:42 PM PDT Approved by: Butch Pineda MD on 03/26/2020 8:42 PM PDT Station ID: [id number]
[2020-03-26 20:53] LABS: MUDS CUTOFF CONCENTRATIONS CUTOFF CONC BELOW:
[2020-03-26 21:02] LABS: BILIRUBIN,URINE NEGATIVE (NEGATIVE); GLUCOSE, URINE (UA) NEGATIVE (NEGATIVE); KETONES,URINE (UA) NEGATIVE (NEGATIVE); LEUKOCYTE ESTERASE, URINE NEGATIVE (NEGATIVE); NITRITE,URINE NEGATIVE (NEGATIVE); OCCULT BLOOD,URINE NEGATIVE (NEGATIVE); PROTEIN,URINE NEGATIVE (NEGATIVE); UROBILINOGEN,URINE 0.2 (NORMAL) E.U./dL (NORMAL)
[2020-03-26 21:07] LABS: CLARITY,URINE CLEAR (CLEAR); HCG UR QUAL NEGATIVE
[2020-03-26 21:13] LABS: AMPHETAMINE SCREEN,URINE NEGATIVE (NEGATIVE); BENZODIAZEPINES SCREEN, URINE NEGATIVE (NEGATIVE); COCAINE SCREEN URINE NEGATIVE (NEGATIVE); METHADONE SCREEN, URINE NEGATIVE (NEGATIVE); METHAMPHETAMINES SCREEN, URINE NEGATIVE (NEGATIVE); OPIATE SCREEN, URINE POSITIVE (NEGATIVE); OXYCODONE SCREEN, URINE NEGATIVE (NEGATIVE); PROPOXYPHENE SCREEN, URINE NEGATIVE (NEGATIVE); TRICYCLIC ANTIDEPRESSANT,URINE NEGATIVE (NEGATIVE)
[2020-03-26 23:57] VITALS: BP 122/82
== END 2020-03-27 01:25 | disposition short-term general hospital (02) ==
LOC: ED 17:40
DX: R29.818 Other symptoms and signs involving the nervous system (principal); M62.81 Muscle weakness (generalized); F10.20 Alcohol dependence, uncomplicated; Z87.891 Personal history of nicotine dependence
CPT/HCPCS: 36415; 70450; 80053; 80306; 80307; 80320; 80329; 81001; 81003; 81025; 82140; 83690; 83735; 84100; 84443; 85025; 87086; 96360; 96361; 99285

== ENCOUNTER 2020-12-09 08:38 | Outpatient (CLI) | payer MEDICAID ==
[2020-12-09 14:07] LABS: ALBUMIN 4.7 g/dL (3.2-5.5); ALBUMIN/GLOBULIN RATIO 1.4 (1.0-2.2); BILIRUBIN,TOTAL 0.5 mg/dL (0.2-1.0); CALCIUM 9.3 mg/dL (8.5-10.3); CREATININE 0.7 mg/dL (0.4-1.0); POTASSIUM 3.7 mmol/L (3.5-5.0); TOTAL PROTEIN 8.1 g/dL (6.7-8.2)
[2020-12-09 14:25] LABS: FERRITIN 18.7 ng/mL (11.0-306.8)
[2020-12-09 15:13] LABS: FOLATE > 49.60 ng/mL (5.90 - >24.8)
== END 2020-12-09 23:59 | disposition home or self-care (01) ==
LOC: LAB.WCP 08:38
PROVIDERS: ATTEND Physician Assistant Medical
DX: F10.10 Alcohol abuse, uncomplicated (principal); R53.83 Other fatigue
CPT/HCPCS: 36415; 80053; 82306; 82607; 82728; 82746

== ENCOUNTER 2021-08-01 08:00 | Outpatient (CLI) | payer MEDICAID | END 2021-08-01 23:59 | disposition home or self-care (01) | LOC: LAB.N 08:00 | PROVIDERS: ATTEND Physician Assistant Medical | DX: R39.9 Unspecified symptoms and signs involving the genitourinary system (principal) | CPT/HCPCS: 87086; 87181 ==